=== PATIENT | female | born 1935 | race Caucasian/White ===

== ENCOUNTER → 2019-03-25 | Outpatient (CLI) | payer MEDICARE, BC ==
--- NOTE | 2019-03-25 16:27 | US ---
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 SIDE PERFORMED: Bilateral FINDINGS: 1) Color flow is present and patency is documented in the following vessels. No DVT or SVT is noted . EIV Common Femoral Vein Deep Femoral Vein Femoral Vein Popliteal Vein Greater Saph Vein Upper Small Saph Vein 2) There is mild venous reflux noted at the following venous levels: - Right EIV, CFV, DFV - Left EIV Anechoic c-shaped area at left pop fossa measuring 4.1 x 1.1 x 3.6cm At patients area of redness in left, no SVT is identified. IMPRESSION: 1. No evidence for DVT within the bilateral lower extremities imaged from the groin to the knees. 2. Mild venous reflux, right greater than left lower extremities, as outlined above. 3. [id number] sized Travis's cyst on the left.
== END | disposition home or self-care (01) ==
LOC: RADUSMAIN 14:55
PROVIDERS: ATTEND Internal Medicine Nephrology
DX: I87.2 Venous insufficiency (chronic) (peripheral) (principal); I12.9 Hypertensive chronic kidney disease with stage 1 through stage 4 chronic kidney disease, or unspecified chronic kidney disease
CPT/HCPCS: 93970

== ENCOUNTER 2019-04-01 14:47 | Emergency (ER) | payer MEDICARE, BC ==
[2019-04-01 14:58] VITALS: TEMP 98.2
[2019-04-01] MEDS ORDERED: SODIUM CHLORIDE 0.9% 500 ML 500 ML IV STA (15:15)
--- NOTE | 2019-04-01 15:56 | ED ---
General Adult HPI - General Chief complaint: Recheck/Abnormal Lab/Rx Stated complaint: High BP Time Seen by Provider: 04/01/19 15:03 Source: patient Mode of arrival: ambulatory Limitations: no limitations - History of Present Illness Initial comments: Patient is a 83-year-old female presenting to the emergency Department with complaints of elevated blood pressure 2 days. Patient states she was recently started on a second blood pressure medication, hydralazine, yesterday. Patient also takes carvedilol. Patient checks her blood pressure twice a day and states last few days has been running high. Patient states when she took it last night and was 216/?. Daughter is with patient now and states when she left last night it was 134. Patient denies fever, chills, headache, blurry vision, abdominal pain, nausea, vomiting. Patient has no other complaints at this time. Patient denies any recent illnesses. Patient denies chest pain, shortness of breath. Upon arrival to ER, BP is 157/74, rest of vital signs normal. - Related Data Home Medications Medication Instructions Recorded Confirmed Acetaminophen [Tylenol] 325 mg PO Q6H PRN 04/01/19 04/01/19 Carvedilol [Coreg] 6.25 mg PO BID 04/01/19 04/01/19 Torsemide [Demadex] 5 mg PO DAILY 04/01/19 04/01/19 amLODIPine [Norvasc] 5 mg PO DAILY 04/01/19 04/01/19 hydrALAZINE HCL [Apresoline] 25 mg PO TID 04/01/19 04/01/19 Allergies Allergy/AdvReac Type Severity Reaction Status Date / Time No Known Allergies Allergy Verified 04/01/19 14:58 Review of Systems ROS Statement: Those systems with pertinent positive or pertinent negative responses have been documented in the HPI. ROS Other: All systems not noted in ROS Statement are negative. Past Medical History Past Medical History: Hypertension Additional Past Medical History / Comment(s): kidney failure History of Any Multi-Drug Resistant Organisms: None Reported Past Surgical History: Joint Replacement Past Psychological History: No Psychological Hx Reported Smoking Status: Current every day smoker Past Alcohol Use History: Occasional Past Drug Use History: None Reported General Exam - General Exam Comments Initial Comments: GENERAL: Well-appearing, well-nourished and in no acute distress. HEAD: Atraumatic, normocephalic. EYES: Pupils equal round and reactive to light, extraocular movements intact, sclera anicteric, conjunctiva are normal. ENT: TMs normal, nares patent, oropharynx clear without exudates. Moist mucous membranes. NECK: Normal range of motion, supple without lymphadenopathy or JVD. LUNGS: Breath sounds clear to auscultation bilaterally and equal. No wheezes rales or rhonchi. HEART: Regular rate and rhythm without murmurs, rubs or gallops. ABDOMEN: Soft, nontender, normoactive bowel sounds. No guarding, no rebound. No masses appreciated. : Deferred EXTREMITIES: Normal range of motion, no pitting or edema. No clubbing or cyanosis. NEUROLOGICAL: Cranial nerves II through XII grossly intact. Normal speech, normal gait. PSYCH: Normal mood, normal affect. SKIN: Warm, Dry, normal turgor, no rashes or lesions noted. Limitations: no limitations Course Vital Signs 04/01/19 04/01/19 04/01/19 14:54 15:05 15:30 Temperature 98.2 F Pulse Rate 79 80 67 Respiratory 18 15 10 L Rate Blood Pressure 157/74 175/71 O2 Sat by Pulse 100 Oximetry 04/01/19 04/01/19 04/01/19 16:00 16:30 17:00 Temperature Pulse Rate 69 68 69 Respiratory 15 17 9 L Rate Blood Pressure 187/83 182/74 185/78 O2 Sat by Pulse Oximetry 04/01/19 04/01/19 04/01/19 17:30 18:00 18:18 Temperature Pulse Rate 65 65 Respiratory 10 L 10 L Rate Blood Pressure 180/77 200/88 200/88 O2 Sat by Pulse Oximetry 04/01/19 04/01/19 04/01/19 18:30 19:00 19:21 Temperature 98.2 F Pulse Rate 68 71 71 Respiratory 10 L 12 12 Rate Blood Pressure 179/78 181/79 181/79 O2 Sat by Pulse 100 Oximetry EKG Findings - EKG Comments: EKG Findings:: Ventricular rate 72, TN interval 190, QTC 473. Sinus rhythm with premature atrial complexes. Left bundle branch block. No acute ST segment changes. No prior EKGs to compare. Medical Decision Making - Medical Decision Making Patient is an 83-year-old female presenting with increasing BP for the last couple days. Patient has past medical history of stage IV kidney disease. Upon arrival to ER, BP is 157/74 in triage area however when rechecked when patient was roomed, BP was 175/71. Patient denies fever, chills, headache, blurry vision, chest pain, shortness of breath, cough, nausea, vomiting. Patient has no further complaints. Patient's exam is unremarkable today. CBC is normal, CMP reveals BUN of 48, creatinine 2.24. GFR is 19. UA is within normal limits. EKG shows no acute changes. Patient was given a half a liter of fluids and labetalol with minimal change in blood pressure. Patient seemed very anxious during the stay in very concerned about her BP. Patient checks it twice a day. Patient has no prior labs to compare kidney function. Case was discussed with Dr. Peoples. Dr. Arvizu was contacted and suggested patient come in for observation. This was discussed with patient and patient is refusing to be admitted. Patient will follow up with her doctor tomorrow morning. The risks of leaving AMA were discussed with the patient and she continues to express her concerns for wanting to leave. AMA form was signed by the patient. Return parameters were discussed with the patient she verbalized understanding. Patient will continue taking her BP medications as prescribed. - Lab Data Result diagrams: 04/01/19 15:46 04/01/19 15:46 Lab Results 04/01/19 04/01/19 04/01/19 Range/Units 15:46 15:46 15:46 WBC 5.1 (3.8-10.6) k/uL RBC 3.99 (3.80-5.40) m/uL Hgb 11.8 (11.4-16.0) gm/dL Hct 35.7 (34.0-46.0) % MCV 89.5 (80.0-100.0) fL MCH 29.7 (25.0-35.0) pg MCHC 33.2 (31.0-37.0) g/dL RDW 13.2 (11.5-15.5) % Plt Count 290 (150-450) k/uL Neutrophils % 62 % Lymphocytes % 20 % Monocytes % 9 % Eosinophils % 5 % Basophils % 2 % Neutrophils # 3.1 (1.3-7.7) k/uL Lymphocytes # 1.0 (1.0-4.8) k/uL Monocytes # 0.5 (0-1.0) k/uL Eosinophils # 0.2 (0-0.7) k/uL Basophils # 0.1 (0-0.2) k/uL Sodium 137 (137-145) mmol/L Potassium 3.8 (3.5-5.1) mmol/L Chloride 101 (98-107) mmol/L Carbon Dioxide 25 (22-30) mmol/L Anion Gap 11 mmol/L BUN 48 H (7-17) mg/dL Creatinine 2.24 H (0.52-1.04) mg/dL Est GFR (CKD-EPI)AfAm 22 (>60 ml/min/1.73 sqM) Est GFR (CKD-EPI)NonAf 19 (>60 ml/min/1.73 sqM) Glucose 153 H (74-99) mg/dL Calcium 9.7 (8.4-10.2) mg/dL Total Bilirubin 0.4 (0.2-1.3) mg/dL AST 20 (14-36) U/L ALT 10 (9-52) U/L Alkaline Phosphatase 68 (38-126) U/L Total Protein 7.0 (6.3-8.2) g/dL Albumin 4.4 (3.5-5.0) g/dL Urine Color Light Yellow Urine Appearance Clear (Clear) Urine pH 5.5 (5.0-8.0) Ur Specific [place] 1.010 (1.001-1.035) Urine Protein Trace H (Negative) Urine Glucose (UA) Negative (Negative) Urine Ketones Negative (Negative) Urine Blood Negative (Negative) Urine Nitrite Negative (Negative) Urine Bilirubin Negative (Negative) Urine Urobilinogen <2.0 (<2.0) mg/dL Ur Leukocyte Esterase Moderate H (Negative) Urine RBC 1 (0-5) /hpf Urine WBC 8 H (0-5) /hpf Ur Squamous Epith Cells <1 (0-4) /hpf Urine Mucus Rare H (None) /hpf Disposition Clinical Impression: Hypertensive urgency, Kidney disease, chronic, stage IV (GFR 15-29 ml/min) Disposition: Left Against Medical Advice Condition: Stable Instructions (If sedation given, give patient instructions): Hypertension (ED) Additional Instructions: Please return to the Emergency Department if symptoms worsen or any other concerns. Follow-up with PCP as discussed tomorrow. Is patient prescribed a controlled substance at d/c from ED?: No Referrals: Teo Madrid MD [Primary Care Provider] - 1-2 days
[2019-04-01 16:05] LABS: Appearance,Urine Clear (Clear); Bilirubin,Urine Negative (Negative); Blood,Urine Negative (Negative); Color,Urine Light Yellow; Glucose,Urine (UA) Negative (Negative); Ketones,Urine Negative (Negative); Leukocyte Esterase,Urine Moderate (Negative); Mucus,Urine Rare /hpf; Nitrite,Urine Negative (Negative); PH, Urine 5.5 (5.0-8.0); Protein,Urine Trace (Negative); RBC,Urine 1 /hpf (0-5); Squamous Epithelial Cell,Urine <1 /hpf (0-4); Urobilinogen,Urine <2.0 mg/dL (<2.0)
[2019-04-01 16:09] LABS: Basophils # (A) 0.1 k/uL (0-0.2); Basophils % (A) 2 %; Eosinophils # (A) 0.2 k/uL (0-0.7); Eosinophils % (A) 5 %; HCT 35.7 % (34.0-46.0); HGB 11.8 gm/dL (11.4-16.0); Lymphocytes % (A) 20 %; MCH 29.7 pg (25.0-35.0); MCHC 33.2 g/dL (31.0-37.0); MCV 89.5 fL (80.0-100.0); Mean Platelet Volume 6.7; Monocytes # (A) 0.5 k/uL (0-1.0); Monocytes % (A) 9 %; Neutrophils # (A) 3.1 k/uL (1.3-7.7); Neutrophils % (A) 62 %; Platelet Count 290 k/uL (150-450); RBC 3.99 m/uL (3.80-5.40); RDW 13.2 % (11.5-15.5); WBC 5.1 k/uL (3.8-10.6)
[2019-04-01 16:10] LABS: Albumin 4.4 g/dL (3.5-5.0); Calcium 9.7 mg/dL (8.4-10.2); Potassium 3.8 mmol/L (3.5-5.1); Total Bilirubin 0.4 mg/dL (0.2-1.3)
[2019-04-01] MEDS ORDERED: LABETALOL 5 MG/ML VIAL MDV IVP STA (16:44)
[2019-04-01 19:02] VITALS: BP 181/79; PULSE 71; RESP 12
== END 2019-04-01 19:21 | disposition left against medical advice (07) ==
LOC: EC 14:47
DX: I16.0 Hypertensive urgency (principal); I12.9 Hypertensive chronic kidney disease with stage 1 through stage 4 chronic kidney disease, or unspecified chronic kidney disease; N18.4 Chronic kidney disease, stage 4 (severe); F17.200 Nicotine dependence, unspecified, uncomplicated; Z96.60 Presence of unspecified orthopedic joint implant; Z79.899 Other long term (current) drug therapy
CPT/HCPCS: 36415; 80053; 81001; 85025; 93005; 96361; 96374; 99283

== ENCOUNTER → 2019-06-12 | Outpatient (CLI) | payer MEDICARE, BC ==
--- NOTE | 2019-06-12 16:21 | ECHOF ---
Referral Reason:I12.9 Hypertensive chronic kidney disease with.... MEASUREMENTS -------- HEIGHT: 157.5 cm WEIGHT: 55.8 kg BP: RVIDd: 2.6 cm (< 3.3) IVSd: 1.3 cm (0.6 - 1.1) LVIDd: 4.1 cm (3.9 - 5.3) LVPWd: 1.3 cm (0.6 - 1.1) IVSs: 1.3 cm LVIDs: 3.7 cm LVPWs: 1.6 cm LA Diam: 4.0 cm (2.7 - 3.8) LAESV Index (A-L): 27.29 ml/m Ao Diam: 2.7 cm (2.0 - 3.7) AV Cusp: 1.6 cm (1.5 - 2.6) LA Diam: 3.2 cm (2.7 - 3.8) MV EXCURSION: 14.382 mm (> 18.000) MV EF SLOPE: 62 mm/s (70 - 150) EPSS: 0.3 cm MV E Juma: 0.49 m/s MV DecT: 251 ms MV A Juma: 0.72 m/s MV E/A Ratio: 0.68 RAP: 5.00 mmHg RVSP: 31.07 mmHg FINDINGS -------- Sinus rhythm. This was a technically adequate study. The left ventricular size is normal. There is mild concentric left ventricular hypertrophy. Overa ll left ventricular systolic function is normal with, an EF between 55 - 60 %. The right ventricle is normal in size. The left atrial size is normal. The right atrial size is normal. There is mild aortic valve sclerosis. There is no evidence of aortic regurgitation. Mild mitral annular calcification present. Mild mitral regurgitation is present. Mild tricuspid regurgitation present. Right ventricular systolic pressure is normal at < 35 mmHg. There is no evidence of pulmonary hypertension. There is no pulmonic regurgitation present. The aortic root size is normal. There is a trivial pericardial effusion present. CONCLUSIONS -------- 1. Sinus rhythm. 2. This was a technically adequate study. 3. The left ventricular size is normal. 4. There is mild concentric left ventricular hypertrophy. 5. The right ventricle is normal in size. 6. The left atrial size is normal. 7. The right atrial size is normal. 8. There is mild aortic valve sclerosis. 9. Mild mitral annular calcification present. 10. Mild mitral regurgitation is present. 11. Mild tricuspid regurgitation present. 12. Right ventricular systolic pressure is normal at < 35 mmHg. 13. There is no evidence of pulmonary hypertension. 14. There is no pulmonic regurgitation present. 15. The aortic root size is normal. 16. There is a trivial pericardial effusion present. HOSPICE VOLUNTEER: Sharee Gallegos RDCS
== END | disposition home or self-care (01) ==
LOC: RADECHMAIN 13:14
PROVIDERS: ATTEND Internal Medicine Nephrology
DX: I31.3 Pericardial effusion (noninflammatory) (principal); I08.3 Combined rheumatic disorders of mitral, aortic and tricuspid valves; I12.9 Hypertensive chronic kidney disease with stage 1 through stage 4 chronic kidney disease, or unspecified chronic kidney disease; N18.9 Chronic kidney disease, unspecified
CPT/HCPCS: 93306

== ENCOUNTER 2021-09-21 17:43 | Emergency (ER) | payer MEDICARE, BC ==
[2021-09-21 18:03] VITALS: RESP 18
[2021-09-21 20:44] LABS: Appearance,Urine Clear (Clear); Bilirubin,Urine Negative (Negative); Blood,Urine Negative (Negative); Color,Urine Light Yellow; Glucose,Urine (UA) Negative (Negative); Ketones,Urine Negative (Negative); Leukocyte Esterase,Urine Negative (Negative); Nitrite,Urine Negative (Negative); PH, Urine 5.5 (5.0-8.0); Protein,Urine Negative (Negative); Specific Gravity,Urine 1.007 (1.001-1.035); Urobilinogen,Urine <2.0 mg/dL (<2.0)
[2021-09-21 20:45] LABS: Basophils % (A) 1 %; Eosinophils # (A) 0.3 k/uL (0-0.7); Eosinophils % (A) 6 %; HCT 35.7 % (34.0-46.0); HGB 11.4 gm/dL (11.4-16.0); Lymphocytes # (A) 1.4 k/uL (1.0-4.8); Lymphocytes % (A) 27 %; MCH 28.7 pg (25.0-35.0); MCHC 31.9 g/dL (31.0-37.0); Mean Platelet Volume 7.8; Monocytes # (A) 0.5 k/uL (0-1.0); Monocytes % (A) 9 %; Neutrophils # (A) 2.8 k/uL (1.3-7.7); Neutrophils % (A) 55 %; Platelet Count 229 k/uL (150-450); RBC 3.97 m/uL (3.80-5.40); RDW 13.1 % (11.5-15.5); WBC 5.1 k/uL (3.8-10.6)
[2021-09-21 20:57] LABS: Albumin 4.3 g/dL (3.5-5.0); Potassium 4.2 mmol/L (3.5-5.1); Total Bilirubin 0.6 mg/dL (0.2-1.3); Total Protein 7.3 g/dL (6.3-8.2)
--- NOTE | 2021-09-21 21:07 | XR ---
EXAMINATION TYPE: XR chest 2V DATE OF EXAM: 09/21/2021 8:53 PM COMPARISON:None TECHNIQUE: XR chest 2V Frontal and lateral views of the chest. CLINICAL INDICATION:Female, 85 years old with history of HTN; FINDINGS: Lungs/Pleura: There is flattening of the diaphragm with increased lucency of the lungs. No evidence o f pneumothorax, pleural effusion or focal consolidation. Left upper lobe nodular density measuring 13 mm. Pulmonary vascularity: Unremarkable. Heart/mediastinum: Cardiomediastinal silhouette is unremarkable. The aorta appears tortuous, a findi ng usually associated with either atherosclerosis or systemic hypertension. Musculoskeletal: No acute osseous pathology. End-stage degeneration changes of the right shoulder. IMPRESSION: 1. No evidence of focal consolidation, pneumothorax or pleural effusion. 2. COPD changes. 3. Left upper lobe nodular density which could be further evaluated with cross-sectional imaging.
--- NOTE | 2021-09-21 21:08 | ED ---
General Adult HPI - General Chief complaint: Recheck/Abnormal Lab/Rx Stated complaint: Hypertensive Time Seen by Provider: 09/21/21 19:21 Source: patient, RN notes reviewed Mode of arrival: wheelchair Limitations: no limitations - History of Present Illness Initial comments: 85-year-old female with past medical history stage IV renal disease presents to the emergency department for evaluation of hypertension. Patient states her blood pressure has been elevated for the past 2 days. Reports that she took an extra half dose of her metoprolol yesterday with no improvement. States she has been taking her medications as prescribed. No known sick exposures. No new medication changes. Denies any associated symptoms including fever, chills, headache, blurry vision, dizziness, chest pain, difficulty breathing, shortness of breath, palpitations, abdominal pain, nausea, vomiting, diarrhea, or dysuria. - Related Data Home Medications Medication Instructions Recorded Confirmed Torsemide [Demadex] 5 mg PO BID 04/01/19 09/21/21 Carvedilol [Coreg] 25 mg PO BID 05/20/19 09/21/21 Previous Rx's Medication Instructions Recorded hydrALAZINE HCL 25 mg PO BID 30 Days #60 tablet 09/22/21 Allergies Allergy/AdvReac Type Severity Reaction Status Date / Time No Known Allergies Allergy Verified 09/21/21 20:33 Review of Systems ROS Statement: Those systems with pertinent positive or pertinent negative responses have been documented in the HPI. ROS Other: All systems not noted in ROS Statement are negative. Past Medical History Past Medical History: Hypertension Additional Past Medical History / Comment(s): kidney failure History of Any Multi-Drug Resistant Organisms: None Reported Past Surgical History: Joint Replacement Past Psychological History: No Psychological Hx Reported Smoking Status: Never smoker Past Alcohol Use History: Occasional Past Drug Use History: None Reported General Exam Limitations: no limitations (Well-developed, well-nourished female in no acute distress. Initial temperature 97.8, pulse 64, respirations 18, blood pressure 193/94, pulse ox 100% on room air.) General appearance: alert, in no apparent distress Eye exam: Present: normal appearance, PERRL, EOMI. Absent: scleral icterus, conjunctival injection, periorbital swelling Neck exam: Present: normal inspection, full ROM. Absent: tenderness, meningism us, lymphadenopathy Respiratory exam: Present: normal lung sounds bilaterally. Absent: respiratory distress, wheezes, rales, rhonchi, stridor, chest wall tenderness Cardiovascular Exam: Present: regular rate, normal rhythm, normal heart sounds. Absent: systolic murmur, diastolic murmur, rubs, gallop, clicks GI/Abdominal exam: Present: soft, normal bowel sounds. Absent: distended, tenderness, guarding, rebound, rigid Extremities exam: Present: normal capillary refill, other (Bilateral dependent nonpitting lower extremity edema- normal for patient.) Neurological exam: Present: alert, oriented X3, CN II-XII intact Psychiatric exam: Present: normal affect, normal mood Skin exam: Present: warm, dry, intact, normal color. Absent: rash Course Vital Signs 09/21/21 09/21/21 09/21/21 18:00 20:56 22:03 Temperature 97.8 F Pulse Rate 64 68 Respiratory 18 Rate Blood Pressure 193/94 202/99 206/102 O2 Sat by Pulse 100 Oximetry 09/21/21 09/21/21 09/22/21 23:00 23:48 00:00 Temperature Pulse Rate 66 68 64 Respiratory 18 18 18 Rate Blood Pressure 215/105 188/91 200/102 O2 Sat by Pulse Oximetry 09/22/21 09/22/21 09/22/21 00:21 01:00 02:00 Temperature Pulse Rate 65 63 59 L Respiratory 18 18 18 Rate Blood Pressure 161/82 100/60 82/56 O2 Sat by Pulse Oximetry 09/22/21 09/22/21 09/22/21 02:12 02:17 03:16 Temperature 97.3 F L Pulse Rate 56 L 56 L 65 Respiratory 18 18 18 Rate Blood Pressure 162/78 148/79 171/83 O2 Sat by Pulse Oximetry - Reevaluation(s) Reevaluation #1: 09/21/21 21:[address] Phipps regarding patient's hypertension. She suggests adding hydralazine 25 mg twice a day with the option of a PRN dose. Clonidine will be administered in the emergency department. Patient will be monitored. And then discharged home to follow up in the office. 09/21/21 23:33 Upon reassessment, patient received her first dose of clonidine with the current blood pressure of 181/97. I will repeat this dose and continue to monitor with a goal pressure of SBP less than 170 and DBP less than 90. 09/22/21 00:48 Blood pressure 103/54. Patient denies dizziness, lightheadedness, or headache. She will be discharged home with daughter and instructed to follow up tomorrow. She is prescribed hydralazine and instructed to continue monitoring her blood pressure closely. 09/22/21 02:30 Preparation for the procedure, patient experienced an episode of orthostatic hypotension likely due to the prolonged rest states and administration antihypertensives. Patient was reassessed and her blood pressure quickly returned to baseline. She was asymptomatic. She will be discharged after 2 consecutive satisfactory blood pressure measurements . Medical Decision Making - Medical Decision Making 85-year-old female with a past medical history of stage IV renal disease presents to the emergency department for evaluation of hypertension. Upon exam, patient is well-appearing and in no acute distress. She is asymptomatic. She denies chest pain or difficulty breathing. States she has been taking her medications as prescribed. Laboratory studies were reviewed and are baseline for patient. EKG unchanged from previous. I did discuss her care with Dr. Phipps, her director of accounting. Patient was given clonidine while present in the emergency department. She is prescribed hydralazine and instructed to begin taking that twice daily, encouraged to call her nephrology [facility] today to schedule a recheck. Return parameters were discussed in detail. Patient and daughter verbalized understanding and agreement with this plan. Attending: Mango. - Lab Data Result diagrams: 09/21/21 19:00 09/21/21 19:00 Lab Results 09/21/21 09/21/21 09/21/21 Range/Units 19:00 19:00 19:00 WBC 5.1 (3.8-10.6) k/uL RBC 3.97 (3.80-5.40) m/uL Hgb 11.4 (11.4-16.0) gm/dL Hct 35.7 (34.0-46.0) % MCV 90.0 (80.0-100.0) fL MCH 28.7 (25.0-35.0) pg MCHC 31.9 (31.0-37.0) g/dL RDW 13.1 (11.5-15.5) % Plt Count 229 (150-450) k/uL MPV 7.8 Neutrophils % 55 % Lymphocytes % 27 % Monocytes % 9 % Eosinophils % 6 % Basophils % 1 % Neutrophils # 2.8 (1.3-7.7) k/uL Lymphocytes # 1.4 (1.0-4.8) k/uL Monocytes # 0.5 (0-1.0) k/uL Eosinophils # 0.3 (0-0.7) k/uL Basophils # 0.0 (0-0.2) k/uL Sodium 135 L (137-145) mmol/L Potassium 4.2 (3.5-5.1) mmol/L Chloride 101 (98-107) mmol/L Carbon Dioxide 23 (22-30) mmol/L Anion Gap 11 mmol/L BUN 47 H (7-17) mg/dL Creatinine 2.26 H (0.52-1.04) mg/dL Est GFR (CKD-EPI)AfAm 22 (>60 ml/min/1.73 sqM) Est GFR (CKD-EPI)NonAf 19 (>60 ml/min/1.73 sqM) Glucose 96 (74-99) mg/dL Calcium 9.0 (8.4-10.2) mg/dL Total Bilirubin 0.6 (0.2-1.3) mg/dL AST 20 (14-36) U/L ALT 10 (4-34) U/L Alkaline Phosphatase 64 (38-126) U/L Total Protein 7.3 (6.3-8.2) g/dL Albumin 4.3 (3.5-5.0) g/dL Urine Color Light Yellow Urine Appearance Clear (Clear) Urine pH 5.5 (5.0-8.0) Ur Specific [place] 1.007 (1.001-1.035) Urine Protein Negative (Negative) Urine Glucose (UA) Negative (Negative) Urine Ketones Negative (Negative) Urine Blood Negative (Negative) Urine Nitrite Negative (Negative) Urine Bilirubin Negative (Negative) Urine Urobilinogen <2.0 (<2.0) mg/dL Ur Leukocyte Esterase Negative (Negative) - EKG Data EKG shows normal: sinus rhythm Rate: normal EKG Comments: EKG was obtained at 1855 showing sinus rhythm with intraventricular conduction delay anteroseptal myocardial infarction of indeterminate age. Ventricular rate 62, [place] interval 200, QRS duration 132, QT/QTc 446/452. Interpretation normal ECG. - Radiology Data Radiology results: report reviewed, image reviewed Two-view chest x-ray was obtained. Report was reviewed in its entirety. Impression per Dr. Melgar is no evidence of focal consolidation, pneumothorax, or pleural effusion. COPD changes. Left upper lobe nodular density which could be further evaluated. Disposition Clinical Impression: Hypertension Disposition: HOME SELF-CARE Condition: Stable Instructions (If sedation given, give patient instructions): Hypertension (ED) Additional Instructions: Continue monitoring her blood pressure at home. Log these values and take them with you to your follow-up appointment. Begin taking Hydralazine 25mg twice daily in additional to your other medications. This was sent electronically to your pharmacy in [place]. May repeat Hydralazine for a third dose if BP remains elevated. Please follow up with Ramandeep for a recheck. Call the office in the morning. Return to the emergency department with any new, worsening, or concerning symptoms. Prescriptions: hydrALAZINE HCL 25 mg PO BID 30 Days #60 tablet Is patient prescribed a controlled substance at d/c from ED?: No Referrals: Teo Madrid MD [Primary Care Provider] - 1-2 days Time of Disposition: 01:00
[2021-09-21] MEDS ORDERED: LABETALOL 5 MG/ML VIAL MDV IVP STA (21:14)
[2021-09-21] MEDS ORDERED: cloNIDine HCL 0.1 MG TAB PO STA ×2 (22:10→23:34)
[2021-09-22 03:17] VITALS: BP 171/83; PULSE 65; TEMP 97.3
== END 2021-09-22 03:17 | disposition home or self-care (01) ==
LOC: EC 17:43
DX: I10 Essential (primary) hypertension (principal)
CPT/HCPCS: 36415; 71046; 80053; 81003; 85025; 96374; 99284

== ENCOUNTER → 2022-09-30 | Outpatient (CLI) | payer MEDICARE, BC ==
--- NOTE | 2022-10-03 07:45 | US ---
EXAMINATION TYPE: US arterial LE single level DATE OF EXAM: 09/30/2022 1:18 PM CLINICAL HISTORY: M25.572 LT ANKLE PAIN. left leg discoloration and left ankle pain Doppler Waveforms: Right: Biphasic Left: Biphasic Right Brachial Pressure: 198 Left Brachial Pressure: 195 Ankle-Brachial Indices: Right: 0.86 Left: 0.69 Toe Brachial Indices: Right: 0.43 Left: 0.57 Some limitations due to poor tolerance to cuff pressure at the ankle. 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 Further workup and follow-up advised.
== END | disposition home or self-care (01) ==
LOC: RADUSWWP 12:37
PROVIDERS: ATTEND Orthopaedic Surgery Foot and Ankle Surgery
DX: M25.572 Pain in left ankle and joints of left foot (principal); M79.604 Pain in right leg; M79.605 Pain in left leg; R09.89 Other specified symptoms and signs involving the circulatory and respiratory systems; I87.2 Venous insufficiency (chronic) (peripheral)
CPT/HCPCS: 93922

== ENCOUNTER 2023-03-02 20:03 | Emergency (ER) | payer MEDICARE, BC ==
[2023-03-02 20:42] VITALS: BP 174/82; PULSE 74; RESP 19
[2023-03-02] MEDS ORDERED: SODIUM CHLORIDE 0.9% 500 ML 500 ML IV ONE (20:49)
[2023-03-02 21:15] LABS: Basophils % (A) 0 %; Eosinophils # (A) 0.2 k/uL (0-0.7); Eosinophils % (A) 2 %; HCT 35.1 % (34.0-46.0); HGB 11.5 gm/dL (11.4-16.0); Lymphocytes # (A) 1.6 k/uL (1.0-4.8); Lymphocytes % (A) 26 %; MCH 28.9 pg (25.0-35.0); MCHC 32.9 g/dL (31.0-37.0); MCV 87.9 fL (80.0-100.0); Mean Platelet Volume 8.5; Monocytes # (A) 0.5 k/uL (0-1.0); Monocytes % (A) 7 %; Neutrophils # (A) 3.8 k/uL (1.3-7.7); Neutrophils % (A) 62 %; Platelet Count 256 k/uL (150-450); RBC 3.99 m/uL (3.80-5.40); RDW 13.7 % (11.5-15.5); WBC 6.1 k/uL (3.8-10.6)
[2023-03-02 21:26] LABS: ALT 14 U/L (4-34); AST 25 U/L (14-36); African American GFR (CKD) 21 (>60 ml/min/1.73 sqM); Albumin 4.5 g/dL (3.5-5.0); Alkaline Phosphatase 66 U/L (38-126); Anion Gap 14 mmol/L; Blood Urea Nitrogen 53 mg/dL (7-17); Carbon Dioxide 18 mmol/L (22-30); Chloride 104 mmol/L (98-107); Glucose 111 mg/dL (74-99); Non-African American GFR(CKD) 18 (>60 ml/min/1.73 sqM); Potassium 4.7 mmol/L (3.5-5.1); Sodium 136 mmol/L (137-145); Total Bilirubin 0.6 mg/dL (0.2-1.3); Total Protein 7.3 g/dL (6.3-8.2)
--- NOTE | 2023-03-02 21:26 | XR ---
EXAMINATION TYPE: XR chest 2V DATE OF EXAM: 03/02/2023 9:21 PM COMPARISON: Chest radiographs from 09/21/2021 TECHNIQUE: XR chest 2V Frontal and lateral views of the chest. CLINICAL INDICATION:Female, 87 years old with history of SOB, suspected allergic rxn; FINDINGS: Lungs/Pleura: There is flattening of the diaphragm with increased lucency of the lungs. No evidence o f pneumothorax, pleural effusion or focal consolidation. Chronic senescent parenchymal change. Left u pper lobe nodular density is less prominent exam and favored represent superimposed clavicle. Pulmonary vascularity: Unremarkable. Heart/mediastinum: Cardiomediastinal silhouette is unremarkable. Atherosclerotic calcifications are seen in the aorta. Musculoskeletal: No acute osseous pathology. Bilateral shoulder arthropathy. Mild multilevel degenera tive disc disease. IMPRESSION: 1. No acute cardiopulmonary disease process. 2. COPD changes.
--- NOTE | 2023-03-02 23:04 | ED ---
General Adult HPI - General Chief complaint: Allergic Reaction Stated complaint: Allergic Reaction Source: patient Mode of arrival: EMS Limitations: no limitations - History of Present Illness Initial comments: 87-year-old female presenting with suspected ALLERGIC reaction. Patient states that she was in her home when she states that she suddenly had a difficult time breathing. Per EMS when they walked in the Small a strong, equal sent. Patient reports that around her complex pesticides called "Round-Up" were sprayed today. Patient was given Benadryl and breathing treatment by EMS and reported significant improvement. She is still having some periorbital swelling. States that her breathing is much better at this time. No rash or itching. No nausea, vomiting, abdominal pain. No chest pain. No swelling of the lips or tongue. She denies any other new foods, medications, or topical products. - Related Data Home Medications Medication Instructions Recorded Confirmed Torsemide [Demadex] 5 mg PO BID 04/01/19 09/21/21 carvediloL [Coreg] 25 mg PO BID 05/20/19 09/21/21 Previous Rx's Medication Instructions Recorded hydrALAZINE HCL 25 mg PO BID 30 Days #60 tablet 09/22/21 Allergies Allergy/AdvReac Type Severity Reaction Status Date / Time No Known Allergies Allergy Verified 09/21/21 20:33 Review of Systems ROS Statement: Those systems with pertinent positive or pertinent negative responses have been documented in the HPI. ROS Other: All systems not noted in ROS Statement are negative. Past Medical History Past Medical History: Hypertension Additional Past Medical History / Comment(s): kidney failure History of Any Multi-Drug Resistant Organisms: None Reported Past Surgical History: Joint Replacement Past Psychological History: No Psychological Hx Reported Smoking Status: Never smoker Past Alcohol Use History: Occasional Past Drug Use History: None Reported General Exam Limitations: no limitations General appearance: alert, in no apparent distress Head exam: Present: atraumatic, normocephalic, normal inspection Eye exam: Present: normal appearance, PERRL, EOMI, periorbital swelling. Absent: scleral icterus, conjunctival injection, periorbital tenderness ENT exam: Present: normal oropharynx, mucous membranes moist Neck exam: Present: normal inspection, full ROM Respiratory exam: Present: normal lung sounds bilaterally. Absent: respiratory distress, wheezes, rales, rhonchi, stridor Cardiovascular Exam: Present: regular rate, normal rhythm, normal heart sounds. Absent: systolic murmur, diastolic murmur, rubs, gallop, clicks Neurological exam: Present: alert, oriented X3, CN II-XII intact Psychiatric exam: Present: normal affect, normal mood Skin exam: Present: warm, dry, intact, normal color. Absent: rash Course Vital Signs 03/02/23 20:26 Pulse Rate 74 Respiratory 19 Rate Blood Pressure 174/82 O2 Sat by Pulse 96 Oximetry EKG Findings - EKG Comments: EKG Findings:: Sinus rhythm ventricular rate 72. TN interval 209. QRS is 134. QTC 439. QTC 463. No significant change from previous EKGs. Medical Decision Making - Medical Decision Making Was pt. sent in by a medical professional or institution (, PA, NUCLEAR REACTOR TECHNICIAN, urgent care, hospital, or fci...) When possible be specific @ -No Did you speak to anyone other than the patient for history (EMS, parent, family, police, friend...)? What history was obtained from this source @ -EMS Did you review nursing and triage notes (agree or disagree)? Why? @ -I reviewed and agree with nursing and triage notes Were old charts reviewed (outside hosp., previous admission, EMS record, old EKG, old radiological studies, urgent care reports/EKG's, fci records)? Report findings @ -No old charts were reviewed Differential Diagnosis (chest pain, altered mental status, abdominal pain women, abdominal pain men, vaginal bleeding, weakness, fever, dyspnea, syncope, headache, dizziness, GI bleed, back pain, seizure, CVA, palpatations, mental he alth, musculoskeletal)? @ -MDM Differential Dyspnea: ALLERGIC reaction, Coronary syndrome, arrhythmia, tamponade, asthma, COPD, pulmonary embolism, pneumonia, pneumothorax, pulmonary effusion, anaphylaxis, diabetic ketoacidosis, flailed chest, pulmonary contusion, diaphragmatic rupture, anemia, neuromuscular this is not meant to be an all-inclusive list. EKG interpreted by me (3pts min.). @ -As above X-rays interpreted by me (1pt min.). @ -No acute cardiopulmonary process CT interpreted by me (1pt min.). @ -None done U/S interpreted by me (1pt. min.). @ -None done What testing was considered but not performed or refused? (CT, X-rays, U/S, labs)? Why? @ -None What meds were considered but not given or refused? Why? @ -None Did you discuss the management of the patient with other professionals (professionals i.e. , SERA, NUCLEAR REACTOR TECHNICIAN, lab, RT, psych nurse, social economist, field counsel, teacher, combat information center officer, pillowcase turner)? Give summary @ -No Was smoking cessation discussed for >3mins.? @ -No Was critical care preformed (if so, how long)? @ -No Were there social determinants of health that impacted care today? How? (Homelessness, low income, unemployed, alcoholism, drug addiction, transportation, low edu. Level, literacy, decrease access to med. care, intermediate, rehab)? @ -No Was there de-escalation of care discussed even if they declined (Discuss DNR or withdrawal of care, Hospice)? DNR status @ -No What co-morbidities impacted this encounter? (DM, HTN, Smoking, COPD, CAD, Cancer, CVA, ARF, Chemo, Hep., AIDS, mental health diagnosis, sleep apnea, morbid obesity)? @ -None Was patient admitted / discharged? Hospital course, mention meds given and route, prescriptions, significant lab abnormalities, going to OR and other pertinent info. @ -87-year-old female presenting with chief complaint of suspected ALLERGIC reaction. Patient had sudden onset of dyspnea and periorbital swelling at home. EMS came to her home and states that they smelled strong chemical odor. Patient was given Benadryl and breathing treatment by EMS, she reports significant improvement in her symptoms after these medications. Patient states that her complex did spray pesticides today which may have caused this reaction. During my assessment the patient is resting comfortably showing no signs of respiratory distress. She has a mild amount of periorbital swelling. Heart and lungs are clear to auscultation. No angioedema. No rash. Lab work shows no leukocytosis or anemia. Carbon monoxide is 2.5. BUN 53 and creatinine 2.34, consistent with the patient's history of chronic kidney disease. Chest x-ray is negative. On reassessment patient is resting comfortably states that her symptoms have completely results. She is requesting discharge. She'll be discharged home with her daughter who will be staying with her tonight. Follow- up with PCP. Report back to ER with any new or worsening symptoms. Discussed return parameters and answered all questions. Patient conveyed verbal understanding and agreed to the plan. I discussed this case in detail with my attending Dr. Bruce Undiagnosed new problem with uncertain prognosis? @ -No Drug Therapy requiring intensive monitoring for toxicity (Heparin, Nitro, Insulin, Cardizem)? @ -No Were any procedures done? @ -No Diagnosis/symptom? @ -ALLERGIC reaction Acute, or Chronic, or Acute on Chronic? @ -acute Uncomplicated (without systemic symptoms) or Complicated (systemic symptoms)? @ -Uncomplicated Side effects of treatment? @ -No Exacerbation, Progression, or Severe Exacerbation? @ -No Poses a threat to life or bodily function? How? (Chest pain, USA, CT, pneumonia, PE, COPD, DKA, ARF, appy, cholecystitis, CVA, Diverticulitis, Homicidal, Suicidal, threat to staff... and all critical care pts) @ -Low likelihood - Lab Data Result diagrams: 03/02/23 20:49 03/02/23 20:49 Lab Results 03/02/23 03/02/23 03/02/23 Range/Units 20:49 20:49 22:45 WBC 6.1 (3.8-10.6) k/uL RBC 3.99 (3.80-5.40) m/uL Hgb 11.5 (11.4-16.0) gm/dL Hct 35.1 (34.0-46.0) % MCV 87.9 (80.0-100.0) fL MCH 28.9 (25.0-35.0) pg MCHC 32.9 (31.0-37.0) g/dL RDW 13.7 (11.5-15.5) % Plt Count 256 (150-450) k/uL MPV 8.5 Neutrophils % 62 % Lymphocytes % 26 % Monocytes % 7 % Eosinophils % 2 % Basophils % 0 % Neutrophils # 3.8 (1.3-7.7) k/uL Lymphocytes # 1.6 (1.0-4.8) k/uL Monocytes # 0.5 (0-1.0) k/uL Eosinophils # 0.2 (0-0.7) k/uL Basophils # 0.0 (0-0.2) k/uL Carbon Monoxide, Quant 2.5 (<10.0) % Sodium 136 L (137-145) mmol/L Potassium 4.7 (3.5-5.1) mmol/L Chloride 104 (98-107) mmol/L Carbon Dioxide 18 L (22-30) mmol/L Anion Gap 14 mmol/L BUN 53 H (7-17) mg/dL Creatinine 2.34 H (0.52-1.04) mg/dL Est GFR (CKD-EPI)AfAm 21 (>60 ml/min/1.73 sqM) Est GFR (CKD-EPI)NonAf 18 (>60 ml/min/1.73 sqM) Glucose 111 H (74-99) mg/dL Calcium 9.0 (8.4-10.2) mg/dL Total Bilirubin 0.6 (0.2-1.3) mg/dL AST 25 (14-36) U/L ALT 14 (4-34) U/L Alkaline Phosphatase 66 (38-126) U/L Total Protein 7.3 (6.3-8.2) g/dL Albumin 4.5 (3.5-5.0) g/dL Disposition Clinical Impression: Allergic reaction Disposition: HOME SELF-CARE Condition: Good Instructions (If sedation given, give patient instructions): General Allergic Reaction (ED) Additional Instructions: Follow-up with PCP. Report back to ER with any new or worsening symptoms. Is patient prescribed a controlled substance at d/c from ED?: No Referrals: Teo Madrid MD [Primary Care Provider] - 1-2 days Time of Disposition: 23:24
== END 2023-03-02 23:33 | disposition home or self-care (01) ==
LOC: EC 20:03
DX: T60.2X1A Toxic effect of other insecticides, accidental (unintentional), initial encounter (principal); I10 Essential (primary) hypertension
CPT/HCPCS: 36415; 71046; 80053; 82375; 85025; 93005; 99285

== ENCOUNTER 2023-06-23 09:43 | Inpatient (IN) | payer MEDICARE, BC ==
[2023-06-23] MEDS ORDERED: ONDANSETRON 4 MG/2 ML VIAL IVP STA (10:23)
[2023-06-23] MEDS ORDERED: MORPHINE SULFATE 2 MG/ML SYRINGE IVP ONE (10:23)
--- NOTE | 2023-06-23 10:40 | ED ---
General Adult HPI - General Chief complaint: Back Pain/Injury Stated complaint: FALL Time Seen by Provider: 06/23/23 09:56 Source: patient, EMS, RN notes reviewed Mode of arrival: EMS Limitations: no limitations - History of Present Illness Initial comments: 87-year-old female presents emergency Department with chief complaint of fall. Patient states she was in the bathroom states that she moved and became dizzy and states that it causes her to fall yesterday. She had a loss conscious. She may have struck her head. She does complain of mid back pain, lower extremity pain. She states she has minimal pain at rest only with movement. She denies any bowel, bladder incontinence or retention or saddle anesthesias. She denies any blood thinners. She does have known kidney disease though she is not on dialysis yet. - Related Data Home Medications Medication Instructions Recorded Confirmed Torsemide [Demadex] 5 mg PO BID 04/01/19 06/23/23 carvediloL [Coreg] 25 mg PO BID 05/20/19 06/23/23 Albuterol Sulfate [Albuterol 2 puff PO RT-Q4H PRN 06/23/23 06/23/23 Sulfate Hfa] amLODIPine [Norvasc] 5 mg PO DAILY 06/23/23 06/23/23 hydrALAZINE HCL 12.5 mg PO BID 06/23/23 06/23/23 Allergies Allergy/AdvReac Type Severity Reaction Status Date / Time No Known Allergies Allergy Verified 06/23/23 13:49 Review of Systems ROS Statement: Those systems with pertinent positive or pertinent negative responses have been documented in the HPI. ROS Other: All systems not noted in ROS Statement are negative. Past Medical History Past Medical History: Hypertension Additional Past Medical History / Comment(s): kidney failure History of Any Multi-Drug Resistant Organisms: None Reported Past Surgical History: Joint Replacement Past Psychological History: No Psychological Hx Reported Smoking Status: Never smoker Past Alcohol Use History: Occasional Past Drug Use History: None Reported General Exam Limitations: no limitations General appearance: alert, in no apparent distress Head exam: Present: atraumatic, normocephalic, normal inspection Eye exam: Present: normal appearance, PERRL, EOMI. Absent: scleral icterus, conjunctival injection, periorbital swelling ENT exam: Present: normal exam, normal oropharynx, mucous membranes moist Neck exam: Present: normal inspection, full ROM. Absent: tenderness, meningismus, lymphadenopathy Respiratory exam: Present: normal lung sounds bilaterally. Absent: respiratory distress, wheezes, rales, rhonchi, stridor, chest wall tenderness, accessory muscle use Cardiovascular Exam: Present: regular rate, normal rhythm, normal heart sounds. Absent: systolic murmur, diastolic murmur, rubs, gallop, clicks GI/Abdominal exam: Present: soft, normal bowel sounds. Absent: distended, tenderness, guarding, rebound, rigid Extremities exam: Present: other (Moderate left ankle tenderness, neurovascular intact bilateral lower extremities with full range of motion) Back exam: Present: normal inspection, full ROM, tenderness, paraspinal tenderness, vertebral tenderness. Absent: CVA tenderness (R), CVA tenderness (L) Neurological exam: Present: alert, oriented X3, CN II-XII intact, reflexes normal. Absent: motor sensory deficit Skin exam: Present: warm, dry, intact, normal color. Absent: rash Course Vital Signs 06/23/23 06/23/23 09:46 12:42 Temperature 97.6 F Pulse Rate 67 65 Respiratory 18 18 Rate Blood Pressure 157/79 153/72 O2 Sat by Pulse 97 97 Oximetry EKG Findings - EKG Comments: EKG Findings:: EKG performed at 10:17 sinus rhythm with a rate of 65 WI 185/142 QT/QTc 443/454 - EKG Results: EKG: interpreted by BLADIMIR Medical Decision Making - Medical Decision Making Was pt. sent in by a medical professional or institution (, PA, BATCH FREEZER OPERATOR, urgent care, hospital, or usp...) When possible be specific @ -No Did you speak to anyone other than the patient for history (EMS, parent, family, police, friend...)? What history was obtained from this source @ -No Did you review nursing and triage notes (agree or disagree)? Why? @ -I reviewed and agree with nursing and triage notes Were old charts reviewed (outside hosp., previous admission, EMS record, old EKG, old radiological studies, urgent care reports/EKG's, usp records)? Report findings @ -No old charts were reviewed Differential Diagnosis (chest pain, altered mental status, abdominal pain women, abdominal pain men, vaginal bleeding, weakness, fever, dyspnea, syncope, headache, dizziness, GI bleed, back pain, seizure, CVA, palpatations, mental health, musculoskeletal)? @ -nDifferential Dizziness: Benign paroxysmal positional Vertigo, Menieres disease, otitis media, acoustic neuroma, vertebrobasilar insufficiency, cerebellar stroke, encephalitis, hypovolemic, arrhythmia, coronary artery syndrome, anemia, this is not meant to be an all-inclusive liste EKG interpreted by me (3pts min.). @ -As above X-rays interpreted by me (1pt min.). @ -X-ray and thoracic and lumbar spine show no acute fracture, x-ray left ankle no acute fracture CT interpreted by me (1pt min.). @ -CT brain, C-spine no intracranial hemorrhage, mass effect fracture noted U/S interpreted by me (1pt. min.). @ -None done What testing was considered but not performed or refused? (CT, X-rays, U/S, labs)? Why? @ -None What meds were considered but not given or refused? Why? @ -None Did you discuss the management of the patient with other professionals (professionals i.e. , PA, BATCH FREEZER OPERATOR, lab, RT, psych nurse, social sciences lecturer, van loader, teacher, security control room officer, showcase trimmer)? Give summary @ -Dr. Vanegas for admission secondary to persistent dizziness, potassium bleeding and unable to care for herself.] Was smoking cessation discussed for >3mins.? @ -No Was critical care preformed (if so, how long)? @ -No Were there social determinants of health that impacted care today? How? ( Homelessness, low income, unemployed, alcoholism, drug addiction, transportation, low edu. Level, literacy, decrease access to med. care, [facility], rehab)? @ -No Was there de-escalation of care discussed even if they declined (Discuss DNR or withdrawal of care, Hospice)? DNR status @ -No What co-morbidities impacted this encounter? (DM, HTN, Smoking, COPD, CAD, Cancer, CVA, ARF, Chemo, Hep., AIDS, mental health diagnosis, sleep apnea, morbid obesity)? @ -None Was patient admitted / discharged? Hospital course, mention meds given and route, prescriptions, significant lab abnormalities, going to OR and other pertinent info. @ -Admitted patient be admitted for possible rehab versus placement. Patient offers evaluation by nephrology as she has chronic kidney disease which is acute on chronic, Dr. Crocker for persistent dizziness. Undiagnosed new problem with uncertain prognosis? @ -No Drug Therapy requiring intensive monitoring for toxicity (Heparin, Nitro, Insulin, Cardizem)? @ -No Were any procedures done? @ -No Diagnosis/symptom? @ -Dizziness, weakness, multiple falls on difficult and bleeding Acute, or Chronic, or Acute on Chronic? @ -Acute Uncomplicated (without systemic symptoms) or Complicated (systemic symptoms)? @ -Complicated. Side effects of treatment? @ -No Exacerbation, Progression, or Severe Exacerbation? @ -No Poses a threat to life or bodily function? How? (Chest pain, [place], [place], pneumonia, PE, COPD, DKA, ARF, appy, cholecystitis, CVA, Diverticulitis, Homicidal, Suicidal, threat to staff... and all critical care pts) @ -No - Lab Data Result diagrams: 06/23/23 10:41 06/23/23 10:41 Lab Results 06/23/23 06/23/23 06/23/23 Range/Units 10:41 10:41 13:02 WBC 6.9 (3.8-10.6) k/uL RBC 3.95 (3.80-5.40) m/uL Hgb 11.3 L (11.4-16.0) gm/dL Hct 34.2 (34.0-46.0) % MCV 86.6 (80.0-100.0) fL MCH 28.5 (25.0-35.0) pg MCHC 33.0 (31.0-37.0) g/dL RDW 13.5 (11.5-15.5) % Plt Count 401 (150-450) k/uL MPV 7.9 Neutrophils % 68 % Lymphocytes % 18 % Monocytes % 8 % Eosinophils % 4 % Basophils % 1 % Neutrophils # 4.7 (1.3-7.7) k/uL Lymphocytes # 1.3 (1.0-4.8) k/uL Monocytes # 0.5 (0-1.0) k/uL Eosinophils # 0.3 (0-0.7) k/uL Basophils # 0.1 (0-0.2) k/uL Sodium 138 (137-145) mmol/L Potassium 3.8 (3.5-5.1) mmol/L Chloride 103 (98-107) mmol/L Carbon Dioxide 24 (22-30) mmol/L Anion Gap 11 mmol/L BUN 46 H (7-17) mg/dL Creatinine 3.00 H (0.52-1.04) mg/dL Est GFR (CKD-EPI)AfAm 15 (>60 ml/min/1.73 sqM) Est GFR (CKD-EPI)NonAf 13 (>60 ml/min/1.73 sqM) Glucose 85 (74-99) mg/dL Calcium 12.0 H (8.4-10.2) mg/dL Total Bilirubin 0.6 (0.2-1.3) mg/dL AST 26 (14-36) U/L ALT 15 (4-34) U/L Alkaline Phosphatase 68 (38-126) U/L Total Protein 6.2 L (6.3-8.2) g/dL Albumin 3.6 (3.5-5.0) g/dL Urine Color Light Yellow Urine Appearance Clear (Clear) Urine pH 6.0 (5.0-8.0) Ur Specific [place] 1.014 (1.001-1.035) Urine Protein 2+ H (Negative) Urine Glucose (UA) Negative (Negative) Urine Ketones Negative (Negative) Urine Blood Trace H (Negative) Urine Nitrite Negative (Negative) Urine Bilirubin Negative (Negative) Urine Urobilinogen <2.0 (<2.0) mg/dL Ur Leukocyte Esterase Negative (Negative) Urine RBC 1 (0-5) /hpf Urine WBC 1 (0-5) /hpf Ur Squamous Epith Cells 5 H (0-4) /hpf Urine Bacteria Rare H (None) /hpf Hyaline Casts 3 H (0-2) /lpf Urine Mucus Rare H (None) /hpf Disposition Clinical Impression: Weakness, Dizziness, Difficulty in walking Disposition: ADMITTED IP TO THIS HOSP Condition: Fair Referrals: Teo Madrid MD [Primary Care Provider] - 1-2 days Time of Disposition: 13:56
[2023-06-23 11:30] LABS: Basophils # (A) 0.1 k/uL (0-0.2); Basophils % (A) 1 %; Eosinophils # (A) 0.3 k/uL (0-0.7); Eosinophils % (A) 4 %; HCT 34.2 % (34.0-46.0); HGB 11.3 gm/dL (11.4-16.0); Lymphocytes # (A) 1.3 k/uL (1.0-4.8); Lymphocytes % (A) 18 %; MCH 28.5 pg (25.0-35.0); MCV 86.6 fL (80.0-100.0); Mean Platelet Volume 7.9; Monocytes # (A) 0.5 k/uL (0-1.0); Monocytes % (A) 8 %; Neutrophils # (A) 4.7 k/uL (1.3-7.7); Neutrophils % (A) 68 %; Platelet Count 401 k/uL (150-450); RBC 3.95 m/uL (3.80-5.40); RDW 13.5 % (11.5-15.5); WBC 6.9 k/uL (3.8-10.6)
--- NOTE | 2023-06-23 11:43 | XR ---
3 views left ankle. DATE: 06/23/2023. COMPARISON: None available. CLINICAL HISTORY: Pain after fall. FINDINGS: There is no fracture, subluxation or dislocation definitively seen. The joint spaces appear preserved. There is no significant soft tissue swelling. There is a small enthesophyte along the dorsal aspect of the calcaneus. IMPRESSION: No acute osseous abnormality identified radiographically.
--- NOTE | 2023-06-23 11:54 | XR ---
EXAMINATION TYPE: XR thoracic spine 3 views, XR pelvis AP view, XR lumbar spine 3V DATE OF EXAM: 06/23/2023 COMPARISON: NONE HISTORY: 87-year-old female with pain after fall FINDINGS: Thoracic spine: Osteopenia. COPD in the lungs. Atherosclerotic arch calcifications. 12 rib-bearing thoracic vertebral bodies. Moderate degenerative disc disease mid thoracic spine. Vertebral body heights are preserved and alignment is maintained. Lumbar spine: Osteopenia. 5 lumbar type vertebral bodies. Atherosclerotic calcification abdominal aorta and iliac a rteries with possible mild aneurysm infrarenal abdominal aorta to 3.4 cm. Hypertrophic facet arthropa thy throughout. Degenerative grade 1 anterolisthesis L4-L5. Vertebral body heights are preserved. Mil d multilevel degenerative disc disease. Pelvis: Mild degenerative joint space narrowing at the hips. Osteopenia. Vascular calcifications. No displace d fracture seen. IMPRESSION: 1. Thoracic spine: Osteopenia. Moderate degenerative disc disease midthoracic spine. No vertebral com pression collapse or malalignment. 2. Lumbar spine: Osteopenia. Hypertrophic facet arthropathy with degenerative grade 1 anterolisthesis L4-L5. Mild multilevel degenerative disc disease. No vertebral compression collapse. 3. Lumbar spine incidental: Atherosclerotic calcifications throughout the abdominal aorta and iliac a rteries. Suspect underlying AAA measuring at least 3.4 cm. 4. Pelvis: Mild degenerative joint space narrowing at the hips. Osteopenia. No displaced fracture see n.
--- NOTE | 2023-06-23 12:03 | CT ---
6 EXAMINATION TYPE: CT brain manav maxwell DATE OF EXAM: 06/23/2023 COMPARISON: None HISTORY: 87-year-old female Back pain CT DLP: 1212.5 mGycm Automated exposure control for dose reduction was used. Technique: Examination of the head was done in axial plane without intravenous contrast. Coronal and sagittal reconstructions performed. CT of the cervical spine was obtained in axial plane without intravenous injection of contrast mater ial. Coronal and sagittal reformatted images were obtained from the axial views for evaluation of f ractures, spinal alignment and canal. FINDINGS: Head: There is no evidence of acute intracranial hemorrhage, acute ischemic changes, mass, mass-effect, or extra-axial fluid collection. There is no effacement of cerebral sulci or basal subarachnoid cister ns. Mild to moderate hydrocephalus with Kobe's ratio calculated at 0.36. Moderate confluent periventr icular white matter hypodensities. There is no midline shift. Mejia-white matter distinction is prese rved. Prominent prostatic calcifications throughout the carotid siphons. Mild scalp contusion along the anterior left cranial convexity. No underlying calvarial fracture. Leftward nasal septal deviation. Paranasal sinuses and mastoid air cells well pneumatized. Orbits and globes are intact. Cervical spine: No craniocervical junction abnormality, predental space widening, or prevertebral soft tissue swellin g. Prominent degenerative change of the C1 dens articulation. Moderate degenerative disc disease mid to lower cervical spine especially C5-C7 levels. Reversal of the normal cervical lordosis. Multilevel facet and uncovertebral joint arthropathy is present. There is degenerative bony ankylosis across the facet joints on the right at C4-C5. Degenerative grade 1 anterolisthesis C4-C5 and trace grade 1 retrolisthesis C5-C6 and C6/C7. No acute fracture of the cervical spine. Disc osteophyte complex may contribute to moderate spinal canal stenosis at C5-C6. At C3-C4, moderate left neural foraminal stenosis. At C4-C5, there is severe right neural foraminal stenosis. At C5-C6, there is severe bilateral neural foraminal stenosis. At C6/C7, moderate to severe right and moderate left foraminal stenosis. Visualized upper lung shows focal patchy airspace opacity lateral right upper lobe Sagittal and coronal reformatted images confirm above findings. COMBINED IMPRESSION: 1. Mild left-sided scalp contusion. Note mild to moderate hydrocephalus which may in part relate to c entral cerebral atrophy. Correlate for possible underlying NPH. 2. Otherwise, no acute intracranial abnormality is seen. 3. Moderate multilevel spondylotic change cervical spine with degenerative grade 1 spondylolisthesis C4-C5, C5-C6, and C6-C7. Note neuroforaminal stenoses as outlined above as well as moderate spinal ca nal stenosis at C5-C6. 4. Note: Partially visualized focal airspace disease lateral right upper lobe. Correlate for possible pneumonia.
[2023-06-23 12:29] LABS: ALT 15 U/L (4-34); AST 26 U/L (14-36); African American GFR (CKD) 15 (>60 ml/min/1.73 sqM); Albumin 3.6 g/dL (3.5-5.0); Alkaline Phosphatase 68 U/L (38-126); Anion Gap 11 mmol/L; Blood Urea Nitrogen 46 mg/dL (7-17); Carbon Dioxide 24 mmol/L (22-30); Chloride 103 mmol/L (98-107); Glucose 85 mg/dL (74-99); Non-African American GFR(CKD) 13 (>60 ml/min/1.73 sqM); Potassium 3.8 mmol/L (3.5-5.1); Sodium 138 mmol/L (137-145); Total Bilirubin 0.6 mg/dL (0.2-1.3); Total Protein 6.2 g/dL (6.3-8.2)
[2023-06-23 13:27] LABS: Appearance,Urine Clear (Clear); Bacteria,Urine Rare /hpf; Bilirubin,Urine Negative (Negative); Blood,Urine Trace (Negative); Color,Urine Light Yellow; Glucose,Urine (UA) Negative (Negative); Hyaline Casts,Urine 3 /lpf (0-2); Ketones,Urine Negative (Negative); Leukocyte Esterase,Urine Negative (Negative); Mucus,Urine Rare /hpf; Nitrite,Urine Negative (Negative); Protein,Urine 2+ (Negative); RBC,Urine 1 /hpf (0-5); Specific Gravity,Urine 1.014 (1.001-1.035); Squamous Epithelial Cell,Urine 5 /hpf (0-4); Urobilinogen,Urine <2.0 mg/dL (<2.0); WBC,Urine 1 /hpf (0-5)
[2023-06-23] MEDS ORDERED: ONDANSETRON 4 MG/2 ML VIAL IVP PRN (13:58)
[2023-06-23] MEDS ORDERED: ACETAMINOPHEN TAB 325 MG TAB PO PRN (13:58)
[2023-06-23] MEDS ORDERED: NALOXONE 0.4 MG/ML 1 ML VIAL IV PRN (13:58)
--- NOTE | 2023-06-23 18:17 | P.HPIM ---
History of Present Illness H&P Date: 06/23/23 Chief Complaint: Fall/weakness 87-year-old female with history of hypertension and chronic kidney disease stage IV presents emergency Department with chief complaint of fall. Patient states she was in the bathroom states that she moved and became dizzy and states that it causes her to fall yesterday. She had a loss conscious. She may have struck her head. She does complain of mid back pain, lower extremity pain. She states she has minimal pain at rest only with movement. She denies any bowel, bladder incontinence or retention or saddle anesthesias. She denies any blood thinners. She does have known kidney disease though she is not on dialysis yet. Patient's family is at bedside and reports that patient has been getting weaker lately and not able to care for self EKG Findings:: sinus rhythm with a rate of 65 MD 185/142 QT/QTc 443/454 X-ray of the thoracic and lumbar spine completed reveals no acute fracture; x- ray left ankle does not reveal any acute abnormality CT head and C-spine is negative for any acute intracranial hemorrhage or mass effect; no fractures Review of Systems REVIEW OF SYSTEMS: CONSTITUTIONAL: No fever, no malaise, no fatigue. HEENT: No recent visual problems or hearing problems. Denied any sore throat. CARDIOVASCULAR: No chest pain, orthopnea, PND, no palpitations, no syncope. PULMONARY: No shortness of breath, no cough, no hemoptysis. GASTROINTESTINAL: No diarrhea, no nausea, no vomiting, no abdominal pain. NEUROLOGICAL: No headaches, no weakness, no numbness. HEMATOLOGICAL: Denies any bleeding or petechiae. GENITOURINARY: Denies any burning micturition, frequency, or urgency. MUSCULOSKELETAL/RHEUMATOLOGICAL: Denies any joint pain, swelling, or any muscle pain. ENDOCRINE: Denies any polyuria or polydipsia. The rest of the 14-point review of systems is negative. Past Medical History Past Medical History: Hypertension Additional Past Medical History / Comment(s): kidney failure History of Any Multi-Drug Resistant Organisms: None Reported Past Surgical History: Joint Replacement Past Psychological History: No Psychological Hx Reported Smoking Status: Never smoker Past Alcohol Use History: Occasional Past Drug Use History: None Reported Medications and Allergies Home Medications Medication Instructions Recorded Confirmed Type Torsemide [Demadex] 5 mg PO BID 04/01/19 06/23/23 History carvediloL [Coreg] 25 mg PO BID 05/20/19 06/23/23 History Albuterol Sulfate [Albuterol 2 puff PO RT-Q4H PRN 06/23/23 06/23/23 History Sulfate Hfa] amLODIPine [Norvasc] 5 mg PO DAILY 06/23/23 06/23/23 History hydrALAZINE HCL 12.5 mg PO BID 06/23/23 06/23/23 History Allergies Allergy/AdvReac Type Severity Reaction Status Date / Time No Known Allergies Allergy Verified 06/23/23 13:49 Physical Exam Vitals: Vital Signs Temp Pulse Resp BP Pulse Ox 06/23/23 16:46 65 18 149/61 97 06/23/23 12:42 65 18 153/72 97 06/23/23 09:46 97.6 F 67 18 157/79 97 Intake and Output 06/23/23 06/23/23 06/23/23 06:59 14:59 22:59 Other: Weight 45.359 kg General appearance: alert, in no apparent distress Head exam: Present: atraumatic, normocephalic, normal inspection Eye exam: Present: normal appearance, PERRL, EOMI. Absent: scleral icterus, conjunctival injection, periorbital swelling ENT exam: Present: normal exam, normal oropharynx, mucous membranes moist Neck exam: Present: normal inspection, full ROM. Absent: tenderness, meningismus, lymphadenopathy Respiratory exam: Present: normal lung sounds bilaterally. Absent: respiratory distress, wheezes, rales, rhonchi, stridor, chest wall tenderness, accessory muscle use Cardiovascular Exam: Present: regular rate, normal rhythm, normal heart sounds. Absent: systolic murmur, diastolic murmur, rubs, gallop, clicks GI/Abdominal exam: Present: soft, normal bowel sounds. Absent: distended, tenderness, guarding, rebound, rigid Extremities exam: Present: other (Moderate left ankle tenderness, neurovascular intact bilateral lower extremities with full range of motion) Back exam: Present: normal inspection, full ROM, tenderness, paraspinal tenderne ss, vertebral tenderness. Absent: CVA tenderness (R), CVA tenderness (L) Neurological exam: Present: alert, oriented X3, CN II-XII intact, reflexes normal. Absent: motor sensory deficit Skin exam: Present: warm, dry, intact, normal color. Absent: rash Results CBC & Chem 7: 06/23/23 10:41 06/23/23 10:41 Labs: Abnormal Lab Results - Last 24 Hours (Table) 06/23/23 06/23/23 06/23/23 Range/Units 10:41 10:41 13:02 Hgb 11.3 L (11.4-16.0) gm/dL BUN 46 H (7-17) mg/dL Creatinine 3.00 H (0.52-1.04) mg/dL Calcium 12.0 H (8.4-10.2) mg/dL Total Protein 6.2 L (6.3-8.2) g/dL Urine Protein 2+ H (Negative) Urine Blood Trace H (Negative) Ur Squamous Epith Cells 5 H (0-4) /hpf Urine Bacteria Rare H (None) /hpf Hyaline Casts 3 H (0-2) /lpf Urine Mucus Rare H (None) /hpf Assessment and Plan Assessment: 1. Acute on chronic kidney disease stage IV - Slow IV fluid hydration with half-normal saline at rate of 75 mL an hour; we will monitor strict LAUREN's, daily weights, renal function and electrolytes; avoid nephrotoxins and hypotension 2. Dizziness/fall - Workup completed in ED including CT of the head, C-spine and x-ray of thoracic and lumbar spine is unremarkable - Patient will be admitted for further neurology evaluation 3. Weakness/generalized decline; consult PT/OT 4. Hypertension; patient takes amlodipine 5 mg daily, Coreg 25 mg twice a day and hydralazine 12.5 mg twice a day - We will hold Demadex 5 mg twice a day DVT prophylaxis; SCDs CODE STATUS; full code
[2023-06-23] MEDS: carvediloL 12.5 MG TAB PO SCH (18:55)
[2023-06-23] MEDS: hydrALAZINE HCL 25 MG TAB PO SCH (19:45)
[2023-06-24] MEDS: carvediloL 12.5 MG TAB PO SCH ×2 (06:37→19:10)
[2023-06-24 07:49] LABS: African American GFR (CKD) 15 (>60 ml/min/1.73 sqM); Anion Gap 10 mmol/L; Blood Urea Nitrogen 44 mg/dL (7-17); Calcium 10.6 mg/dL (8.4-10.2); Carbon Dioxide 21 mmol/L (22-30); Chloride 100 mmol/L (98-107); Glucose 73 mg/dL (74-99); Non-African American GFR(CKD) 13 (>60 ml/min/1.73 sqM); Sodium 131 mmol/L (137-145)
[2023-06-24 08:20] LABS: Basophils % (A) 1 %; Eosinophils # (A) 0.5 k/uL (0-0.7); Eosinophils % (A) 9 %; HCT 28.4 % (34.0-46.0); Lymphocytes # (A) 1.3 k/uL (1.0-4.8); Lymphocytes % (A) 24 %; MCV 87.7 fL (80.0-100.0); Monocytes # (A) 0.5 k/uL (0-1.0); Monocytes % (A) 10 %; Neutrophils # (A) 2.8 k/uL (1.3-7.7); Neutrophils % (A) 53 %; Platelet Count 333 k/uL (150-450); RBC 3.24 m/uL (3.80-5.40); RDW 13.3 % (11.5-15.5); WBC 5.2 k/uL (3.8-10.6)
[2023-06-24 08:37] LABS: HGB 9.4 gm/dL (11.4-16.0)
[2023-06-24] MEDS: amLODIPine 5 MG TAB PO SCH (10:07)
[2023-06-24] MEDS: hydrALAZINE HCL 25 MG TAB PO SCH ×2 (10:07→20:44)
--- NOTE | 2023-06-24 11:15 | P.NPCON ---
History of Present Illness - Reason for Consult chronic renal failure - History of Present Illness Patient is an 87-year-old female with history of hypertension and chronic kidney disease NKF stage 4 with baseline creatinine around 2.2-2.3 mg/dL. Patient is admitted to the hospital with history of fall. She states that she does not remember what happened when she was in the bathroom and getting ready to go out. No symptoms of lightheadedness or dizziness prior to that. Blood pressure not noted to be significantly low. No history of nausea vomiting or diarrhea. Serum creatinine at 3.0 mg/dL. Patient has been voiding. Review of Systems As per HPI. Past Medical History Past Medical History: Hypertension Additional Past Medical History / Comment(s): kidney failure History of Any Multi-Drug Resistant Organisms: None Reported Past Surgical History: Joint Replacement Additional Past Surgical History / Comment(s): knees replaced Past Psychological History: No Psychological Hx Reported Smoking Status: Former smoker Past Alcohol Use History: Occasional Past Drug Use History: None Reported Medications and Allergies Home Medications Medication Instructions Recorded Confirmed Type Torsemide [Demadex] 5 mg PO BID 04/01/19 06/23/23 History carvediloL [Coreg] 25 mg PO BID 05/20/19 06/23/23 History Albuterol Sulfate [Albuterol 2 puff PO RT-Q4H PRN 06/23/23 06/23/23 History Sulfate Hfa] amLODIPine [Norvasc] 5 mg PO DAILY 06/23/23 06/23/23 History hydrALAZINE HCL 12.5 mg PO BID 06/23/23 06/23/23 History Allergies Allergy/AdvReac Type Severity Reaction Status Date / Time No Known Allergies Allergy Verified 06/23/23 13:49 Physical Exam Vitals: Vital Signs Temp Pulse Pulse Resp BP BP Pulse Ox 06/24/23 07:15 98.0 F 60 16 153/66 94 L 06/24/23 02:00 98.2 F 64 16 144/68 94 L 06/23/23 21:32 98.6 F 94 18 134/69 95 06/23/23 20:00 98.1 F 66 16 171/84 94 L 06/23/23 18:42 98.2 F 63 18 147/62 97 06/23/23 16:46 65 18 149/61 97 06/23/23 12:42 65 18 153/72 97 Intake and Output 06/23/23 06/24/23 06/24/23 22:59 06:59 14:59 Intake Total 450 Output Total 300 Balance 150 Intake: IV 450 0.45 450 Output: Urine 300 Other: Voiding Method Toilet # Voids 2 # Bowel Movements 1 Weight 45.359 kg Patient is awake, comfortable, no acute distress Examination of the heart S1 and S2 Examination of the lungs bilateral breath sounds are heard Abdomen is soft nontender Examination of lower extremities shows no evidence of edema 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 Acute kidney injury most likely prerenal with possible component of ATN. Blood pressure not significantly low. I will check orthostatic blood pressures. UA is quite benign with 2+ protein and trace blood. No nephrotoxic agents noted. 2. Chronic kidney disease NKF stage IV secondary to nephrosclerosis with no plans for renal replacement therapy. 3. Hypertension with CK D stage IV 4. Status post fall and syncope. Urology has been consulted. Plan: Add IV hydration Check orthostatic blood pressures Repeat labs in a.m. No plans for renal replacement therapy. Next Thank you for the consultation. We will continue to follow the patient with you during her hospitalization.
[2023-06-24] MEDS: SODIUM CHLORIDE 0.9% 1,000 ML IV SCH (12:31)
[2023-06-24] MEDS: PANTOPRAZOLE 40 MG/10 ML VIAL IVP SCH ×2 (12:31→20:45)
--- NOTE | 2023-06-24 15:52 | P.PN ---
Subjective Progress Note Date: 06/24/23 87-year-old female with history of hypertension and chronic kidney disease stage IV presents emergency Department with chief complaint of fall. Patient states she was in the bathroom states that she moved and became dizzy and states that it causes her to fall yesterday. She had a loss conscious. She may have struck her head. She does complain of mid back pain, lower extremity pain. She states she has minimal pain at rest only with movement. She denies any bowel, bladder incontinence or retention or saddle anesthesias. She denies any blood thinners. She does have known kidney disease though she is not on dialysis yet. Patient's family is at bedside and reports that patient has been getting weaker lately and not able to care for self EKG Findings:: sinus rhythm with a rate of 65 IA 185/142 QT/QTc 443/454 X-ray of the thoracic and lumbar spine completed reveals no acute fracture; x- ray left ankle does not reveal any acute abnormality CT head and C-spine is negative for any acute intracranial hemorrhage or mass effect; no fractures Objective - Vital Signs Vital signs: Vital Signs Temp 98.0 F 06/24/23 07:15 Pulse 60 06/24/23 07:15 Resp 16 06/24/23 07:15 BP 153/66 06/24/23 07:15 Pulse Ox 94 L 06/24/23 07:15 FiO2 Intake & Output 06/23/23 06/24/23 06/24/23 18:59 06:59 18:59 Intake Total 450 Output Total 300 Balance 150 Weight 45.359 kg 45.359 kg Intake: IV 450 0.45 450 Output: Urine 300 Other: Voiding Method Toilet # Voids 2 # Bowel Movements 1 - Exam General appearance: alert, in no apparent distress Head exam: Present: atraumatic, normocephalic, normal inspection Eye exam: Present: normal appearance, PERRL, EOMI. Absent: scleral icterus, con junctival injection, periorbital swelling ENT exam: Present: normal exam, normal oropharynx, mucous membranes moist Neck exam: Present: normal inspection, full ROM. Absent: tenderness, meningismus, lymphadenopathy Respiratory exam: Present: normal lung sounds bilaterally. Absent: respiratory distress, wheezes, rales, rhonchi, stridor, chest wall tenderness, accessory muscle use Cardiovascular Exam: Present: regular rate, normal rhythm, normal heart sounds. Absent: systolic murmur, diastolic murmur, rubs, gallop, clicks GI/Abdominal exam: Present: soft, normal bowel sounds. Absent: distended, tenderness, guarding, rebound, rigid Extremities exam: Present: other (Moderate left ankle tenderness, neurovascular intact bilateral lower extremities with full range of motion) Back exam: Present: normal inspection, full ROM, tenderness, paraspinal tenderness, vertebral tenderness. Absent: CVA tenderness (R), CVA tenderness (L) Neurological exam: Present: alert, oriented X3, CN II-XII intact, reflexes normal. Absent: motor sensory deficit Skin exam: Present: warm, dry, intact, normal color. Absent: rash - Labs CBC & Chem 7: 06/24/23 06:30 06/24/23 06:30 Labs: Abnormal Lab Results - Last 24 Hours (Table) 06/23/23 06/23/23 06/23/23 Range/Units 10:41 10:41 13:02 RBC (3.80-5.40) m/uL Hgb 11.3 L (11.4-16.0) gm/dL Hct (34.0-46.0) % Sodium (137-145) mmol/L Carbon Dioxide (22-30) mmol/L BUN 46 H (7-17) mg/dL Creatinine 3.00 H (0.52-1.04) mg/dL Glucose (74-99) mg/dL Calcium 12.0 H (8.4-10.2) mg/dL Total Protein 6.2 L (6.3-8.2) g/dL Urine Protein 2+ H (Negative) Urine Blood Trace H (Negative) Ur Squamous Epith Cells 5 H (0-4) /hpf Urine Bacteria Rare H (None) /hpf Hyaline Casts 3 H (0-2) /lpf Urine Mucus Rare H (None) /hpf 06/24/23 06/24/23 Range/Units 06:30 06:30 RBC 3.24 L (3.80-5.40) m/uL Hgb 9.4 L D (11.4-16.0) gm/dL Hct 28.4 L (34.0-46.0) % Sodium 131 L (137-145) mmol/L Carbon Dioxide 21 L (22-30) mmol/L BUN 44 H (7-17) mg/dL Creatinine 3.01 H (0.52-1.04) mg/dL Glucose 73 L (74-99) mg/dL Calcium 10.6 H (8.4-10.2) mg/dL Total Protein (6.3-8.2) g/dL Urine Protein (Negative) Urine Blood (Negative) Ur Squamous Epith Cells (0-4) /hpf Urine Bacteria (None) /hpf Hyaline Casts (0-2) /lpf Urine Mucus (None) /hpf Assessment and Plan Assessment: 1. Acute on chronic kidney disease stage IV - Slow IV fluid hydration with half-normal saline at rate of 75 mL an hour; we will monitor strict LAUREN's, daily weights, renal function and electrolytes; avoid nephrotoxins and hypotension 2. Dizziness/fall - Workup completed in ED including CT of the head, C-spine and x-ray of thoracic and lumbar spine is unremarkable - Patient will be admitted for further neurology evaluation 3. Weakness/generalized decline; consult PT/OT 4. Hypertension; patient takes amlodipine 5 mg daily, Coreg 25 mg twice a day and hydralazine 12.5 mg twice a day - We will hold Demadex 5 mg twice a day DVT prophylaxis; SCDs CODE STATUS; full code
[2023-06-24 16:44] LABS: Basophils # (A) 0.1 k/uL (0-0.2); Basophils % (A) 1 %; Eosinophils # (A) 0.4 k/uL (0-0.7); Eosinophils % (A) 7 %; HCT 28.8 % (34.0-46.0); HGB 9.6 gm/dL (11.4-16.0); Lymphocytes # (A) 1.2 k/uL (1.0-4.8); Lymphocytes % (A) 23 %; MCH 29.3 pg (25.0-35.0); MCHC 33.3 g/dL (31.0-37.0); MCV 87.9 fL (80.0-100.0); Mean Platelet Volume 8.1; Monocytes # (A) 0.5 k/uL (0-1.0); Monocytes % (A) 9 %; Neutrophils # (A) 3.1 k/uL (1.3-7.7); Neutrophils % (A) 57 %; Platelet Count 316 k/uL (150-450); RBC 3.27 m/uL (3.80-5.40); RDW 13.4 % (11.5-15.5); WBC 5.3 k/uL (3.8-10.6)
--- NOTE | 2023-06-24 20:02 | US ---
EXAMINATION TYPE: US carotid duplex BILAT DATE OF EXAM: 06/24/2023 COMPARISON: NONE CLINICAL INDICATION: Female, 87 years old with history of dizziness, syncope; Pt passed out yesterday TECHNIQUE: Carotid duplex ultrasound examination. Indirect Doppler criteria was utilized. FINDINGS: EXAM MEASUREMENTS: RIGHT: Peak Systolic Velocity (PSV) cm/sec ----- Right CCA: 40.6 ----- Right ICA: 83.5 ----- Right ECA: 155.5 ICA/CCA ratio: 2.1 RIGHT: End Diastole cm/sec ----- Right CCA: 7.6 ----- Right ICA: 14.2 ----- Right ECA: 7.7 LEFT: Peak Systolic Velocity (PSV) cm/sec ----- Left CCA: 46.1 ----- Left ICA: 84.2 ----- Left ECA: 49.4 ICA/CCA ratio: 1.8 LEFT: End Diastole cm/sec ----- Left CCA: 12.0 ----- Left ICA: 17.1 ----- Left ECA: 4.9 VERTEBRALS (direction of flow): Right Vertebral: Antegrade Left Vertebral: Antegrade Rhythm: Normal SOCIAL SERVICES MANAGER NOTES: Plaque seen in bilateral bulbs IMPRESSION: Mild to moderate atherosclerotic change at the bifurcations but no hemodynamically significant fashion buying internship al carotid artery stenosis on either side. Criteria for Assigning % of Stenosis / Diameter reduction (Estimation based on the indirect measurements of the internal carotid artery velocities (ICA PSV). 1. Normal (no stenosis)=ICA PSV < 125 cm/s: ratio < 2.0: ICA EDV<40 cm/s. 2. Less than 50% stenosis=ICA PSV < 125 cm/s: ratio < 2.0: ICA EDV<40 cm/s. 3. 50 to 69% stenosis=ICA PSV of 125 to 230 cm/s: ration 2.0 ? 4.0: ICA EDV 40-100 cm/s. 4. Greater than 70% stenosis to near occlusion= ICA PSV > 230 cm/s: ratio > 4.0: ICA EDV > 100 cm/s. 5. Near occlusion= ICA PSV velocities may be low or undetectable: variable ratio and ICA EDV. 6. Total occlusion=unable to detect flow.
[2023-06-25] MEDS: carvediloL 12.5 MG TAB PO SCH ×2 (06:42→17:22)
[2023-06-25] MEDS: SODIUM CHLORIDE 0.9% 1,000 ML IV SCH ×2 (06:42→16:28)
[2023-06-25] MEDS: hydrALAZINE HCL 25 MG TAB PO SCH ×2 (09:03→20:13)
[2023-06-25] MEDS: PANTOPRAZOLE 40 MG/10 ML VIAL IVP SCH ×2 (09:03→20:13)
[2023-06-25] MEDS: amLODIPine 5 MG TAB PO SCH (09:04)
--- NOTE | 2023-06-25 11:12 | P.CNNES ---
History of Present Illness Consult date: 06/24/23 Requesting physician: John Hernandes Reason for Consult: Dizziness, hallucinations History of Present Illness: Patient is a 87-year-old left-handed female was brought to the hospital by ambulance yesterday at 9:43 AM for difficulty walking, and recent fall. As per EMS flow sheet, when they arrived, patient was laying in her bed, alert and oriented 4. The patient mentioned that yesterday morning she fell into the tub while in the bathroom. The patient stated that she is not sure why she fell, but does remember the fall and denies any loss of consciousness. The patient mentioned that she was able to get up on her own at the time of the fall. She has been complaining of back and hip pain since her fall yesterday. The patient mentioned that this morning when she woke up, her back and hip were hurting really bad whenever she moves to the point that she is unable to sit up or stand. Patient mentions that as long as she remains in a laying position, she is pain-free. There were no visible deformities and was able to move all extremities. Her pupils were equal and reactive. Patient denied any head or neck pain. Patient does have pain upon palpation of her hips bilaterally. Also complaining of pain in the mid to lower thoracic area upon palpation. Patient's vitals at the scene was blood pressure 183/93, pulse rate 70, respirations 16 saturation 96%. She remained hypertensive during the transport. At present patient is laying in the bed, appears very alert awake comfortable. Patient's son was also present, who is constantly texting his brother about patient's condition. Both of them were providing history, but sometimes the timeframe was sometimes not consistent. Patient herself who appears very smart, does not seem to be agreeing with what her son is telling. I spent a lot of time, trying to gather the history. It appears 3 weeks ago patient was prescribed a muscle relaxer. A fter she took a couple doses, she slept for 16-1/2 hours straight. When she woke up, she was slightly disoriented, slightly hallucinating which occurred overnight and she was basically fine the next day. Patient had an upper respiratory infection 3 weeks ago on no antibiotics were prescribed. About 3 weeks ago, patient was cooking in the kitchen and the cleaning lady has changed the floor or drugs. While she was working on the oven, she stepped backwards towards her microwave, and did not realize the legs were changed and she tripped and fell backwards. Although this fall was 3 weeks ago, but was not related to the muscle relaxer or the respiratory infection that they mentioned above. She was fine after the fall. Patient states that in the last 3 days prior to arrival, she has been having an episode of dizziness, which is very momentarily, occurring about once a day, and the last event that occurred, led to the fall in the bathroom as mentioned above. She did not pass out, lost consciousness. She does not know how she fell, but she was able to get up right away. She descri bes her episode of dizziness as lightheadedness. There is no activity that triggers this dizzy spell. Patient states that the day after the fall patient was so all over, could not get out of bed, therefore the family called the ambulance and brought her to the hospital. At present patient feels that she needs help to get up, to go to the bathroom which never happened before. She used to drive, gets around very well. She does not use any assistive device at baseline (prior to this fall). Patient denies any strokelike symptoms. Patient's son mentions that she was hallucinating after she fell on , the day prior to arrival, seeing some dogs with her [id number]. Patient completely denies any hallucinations. Patient denies any leaking or urgency of urination. Patient denies any memory disturbance. The family also mentioned that patient was exposed to a round up in January 2023 and she has some respiratory reaction from that. She couldn't breathe, and she passed out as she couldn't breathe. She was in the hospital. Blood pressure on arrival 157/79, pulse is 67 temperature 97.6. Blood pressure was normal CBC, electrolytes, BUN 46, creatinine 3.0. Hepatic panel is normal, UA is normal. Patient does have chronic renal insufficiency, which seems to be getting worse. EKG shows normal sinus rhythm. X-ray of the thoracic, pelvic and lumbar spines revealed osteopenia, moderate degenerative disc disease mid thoracic spine. No vertebral compression collapse or malalignment. Osteopenia and hypertrophic facet arthropathy with degenerative grade 1 anterolisthesis L4- L5. No vertebral compression collapse. Pelvis also showed mild degenerative joint space narrowing at the hips and osteopenia with no fracture. CT of the head revealed mild left scalp contusion. Mild to moderate hydrocephalus, which may in part related to central cerebral atrophy. Correlate for possible underlying NPH. Moderate multilevel spondylotic change cervical spine with degenerative grade 1 spondylolisthesis C4-C5, C5-C6, and C6-C7. Moderate spinal canal stenosis at C5-C6. Patient has stage V chronic renal disease and sees Dr. Phipps for last 7 years. Patient smokes half pack per day for 30 years, quit 40 years ago. She drinks cocktail once in a while. Patient has hypertension but no diabetes. Review of Systems Constitutional: Denies chills, Denies fever Eyes: denies blurred vision, denies decreased vision, denies diplopia, denies pain Ears: deny: decreased hearing, tinnitus Ears, nose, mouth and throat: Denies headache, Denies sore throat Cardiovascular: Denies chest pain, Denies shortness of breath Respiratory: Denies cough, Denies excessive sputum (Recent URI) Gastrointestinal: Denies abdominal pain, Denies diarrhea, Denies nausea, Denies vomiting Genitourinary: Denies dysuria, Denies hematuria, Denies urge incontinence, Denies urgency Musculoskeletal: Reports myalgias, Denies low back pain, Denies neck pain Integumentary: Denies pruritus, Denies rash Neurological: Reports as per HPI Psychiatric: Denies anxiety, Denies depression Hematologic/Lymphatic: Denies easy bleeding, Denies easy bruising Past Medical History Past Medical History: Hypertension Additional Past Medical History / Comment(s): kidney failure History of Any Multi-Drug Resistant Organisms: None Reported Past Surgical History: Joint Replacement Additional Past Surgical History / Comment(s): knees replaced Past Psychological History: No Psychological Hx Reported Smoking Status: Former smoker Past Alcohol Use History: Occasional Past Drug Use History: None Reported Medications and Allergies Home Medications Medication Instructions Recorded Confirmed Type Torsemide [Demadex] 5 mg PO BID 04/01/19 06/23/23 History carvediloL [Coreg] 25 mg PO BID 05/20/19 06/23/23 History Albuterol Sulfate [Albuterol 2 puff PO RT-Q4H PRN 06/23/23 06/23/23 History Sulfate Hfa] amLODIPine [Norvasc] 5 mg PO DAILY 06/23/23 06/23/23 History hydrALAZINE HCL 12.5 mg PO BID 06/23/23 06/23/23 History Allergies Allergy/AdvReac Type Severity Reaction Status Date / Time No Known Allergies Allergy Verified 06/23/23 13:49 Physical Examination - Vital Signs Vital Signs: Vital Signs Temp Pulse Pulse Resp BP BP Pulse Ox 06/24/23 12:21 97.5 F L 68 17 123/64 91 L 06/24/23 07:15 98.0 F 60 16 153/66 94 L 06/24/23 02:00 98.2 F 64 16 144/68 94 L 06/23/23 21:32 98.6 F 94 18 134/69 95 06/23/23 20:00 98.1 F 66 16 171/84 94 L 06/23/23 18:42 98.2 F 63 18 147/62 97 06/23/23 16:46 65 18 149/61 97 Intake and Output 06/24/23 06/24/23 06/24/23 06:59 14:59 22:59 Intake Total 450 Output Total 300 Balance 150 Intake: IV 450 0.45 450 Output: Urine 300 Other: Voiding Method Toilet # Voids 2 # Bowel Movements 1 Patient is an elderly female, very pleasant, in no acute distress. Patient is alert awake oriented to time place and person. She knows it is June and the year is 2022, Christ. She knows her full address and that she lives in [facility]. She knows that she is currently in [facility] did she does not know name of the current president but she does not follow the politics. Speech and language functions are normal. Patient can name and repeat very well. No aphasia or dysarthria. Attention, concentration and fund of knowledge is adequate. On cranial nerve examination, pupils are equal, round and reacting to light, visual blood are full on confrontation, with no neglect on double simultaneous stimulation. Extraocular muscles are intact with no nystagmus. Face is symmetric, tongue protrudes to the midline. Palatal elevation and sensation normal, hearing and shoulder shrug normal, facial sensation normal. On muscle strength testing, there is no pronator drift. The strength is normal in the upper extremities although she is slightly sore. In the lower limbs, her hip flexion is 4- bilaterally with significant soreness. Ankle dorsiflexion is 5. Deep tendon reflexes are (right/left) biceps 2/2, brachioradialis 2/2, knees 1/2, ankles 1 bilaterally and plantars are flat. Sensory to touch is equal with no neglect on double simultaneous stimulation. Cerebellar function showed no ataxia for [id number] testing. No dysdiadochokinesia. She could not perform [id number] testing because of pain. Tone and bulk of muscles normal. Gait deferred. Patient states that she is too weak, cannot walk. On general examination, there is no carotid bruit or murmur, S1-S2 audible. Chest is clear on consultation. Abdomen is soft nontender. No organomegaly, bowel sounds present. Peripheral pulses are present. No peripheral edema. Results - Laboratory Findings CBC and BMP: 06/24/23 16:17 06/24/23 06:30 Abnormal Lab Findings: Abnormal Labs 06/23/23 06/23/23 06/23/23 10:41 10:41 13:02 RBC Hgb 11.3 L Hct Sodium Carbon Dioxide BUN 46 H Creatinine 3.00 H Glucose Calcium 12.0 H Total Protein 6.2 L Urine Protein 2+ H Urine Blood Trace H Ur Squamous Epith Cells 5 H Urine Bacteria Rare H Hyaline Casts 3 H Urine Mucus Rare H 06/24/23 06/24/23 06:30 06:30 RBC 3.24 L Hgb 9.4 L D Hct 28.4 L Sodium 131 L Carbon Dioxide 21 L BUN 44 H Creatinine 3.01 H Glucose 73 L Calcium 10.6 H Total Protein Urine Protein Urine Blood Ur Squamous Epith Cells Urine Bacteria Hyaline Casts Urine Mucus Assessment and Plan Assessment: * Status post fall 06/22/2023 (1 day prior to arrival) due to transient dizziness, unclear cause. Patient has been having very brief, transient dizzy spells sporadically for 3 days prior to the fall. * History of accidental fall by tripping backwards about 3 weeks ago. Patient also had some upper respiratory infection 3 weeks ago, and she may have developed some peripheral vestibular dysfunction leading to these dizzy spells. * Abnormal CT head, with possibility of normal pressure hydrocephalus. * Acute onset of gait difficulty, not able to walk since the day after the fall (since day of admission). * Acute on chronic renal insufficiency, stage V chronic renal disease * Hypertension Plan: * Patient will undergo syncopal workup. * Carotid Doppler, rule out stenosis * B12, folate, MMA, B1, B6 level and TSH. * PT OT evaluate gait. * Anti-inflammatory medications contraindicated because of renal failure. * Patient's renal function is worsening. Will defer to IM/nephrology. * CT head revealed possibility of hydrocephalus. Patient did not have any gait difficulty prior to the fall. She denies any problems with memory functions or bladder control. We will follow clinically. If she has any persistent symptoms of NPH, then may need further workup including an MRI of the brain. Discussed with patient and her son in great detail. * Neurology will follow. Thank you for the consult. Time with Patient: Greater than 30
[2023-06-25 11:16] LABS: BUN/Creat Ratio 13.17 Ratio (12.00-20.00); Blood Urea Nitrogen 39.5 mg/dL (9.0-27.0); Calcium 10.6 mg/dL (8.7-10.3); Chloride 103 mmol/L (96-109); Glucose 83 mg/dL (70-110); Potassium 4.2 mmol/L (3.5-5.5); Sodium 135 mmol/L (135-145)
--- NOTE | 2023-06-25 11:35 | P.PN ---
Subjective Patient is seen for follow-up for acute kidney injury on chronic kidney disease. Orthostatic hypotension was noted. Renal function is stable with creatinine staying at 3.0. Maintained on IV fluids. 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 Acute kidney injury most likely prerenal with possible component of ATN. Significant orthostatic hypotension noted. Currently maintained on IV fluids. UA is quite benign with 2+ protein and trace blood. No nephrotoxic agents noted. 2. Chronic kidney disease NKF stage IV secondary to nephrosclerosis with no plans for renal replacement therapy. 3. Hypertension with CK D stage IV 4. Status post fall and syncope. Neurology has been consulted. Plan: Continue IV fluids Decrease antihypertensive medications Increase ambulation as tolerated.
[2023-06-25 15:56] VITALS: BMI 18.3
--- NOTE | 2023-06-25 17:16 | P.PN ---
Subjective Progress Note Date: 06/25/23 87-year-old female with history of hypertension and chronic kidney disease stage IV presents emergency Department with chief complaint of fall. Patient states she was in the bathroom states that she moved and became dizzy and states that it causes her to fall yesterday. She had a loss conscious. She may have struck her head. She does complain of mid back pain, lower extremity pain. She states she has minimal pain at rest only with movement. She denies any bowel, bladder incontinence or retention or saddle anesthesias. She denies any blood thinners. She does have known kidney disease though she is not on dialysis yet. Patient's family is at bedside and reports that patient has been getting weaker lately and not able to care for self EKG Findings:: sinus rhythm with a rate of 65 MN 185/142 QT/QTc 443/454 X-ray of the thoracic and lumbar spine completed reveals no acute fracture; x- ray left ankle does not reveal any acute abnormality CT head and C-spine is negative for any acute intracranial hemorrhage or mass effect; no fractures 24 hour interval change 06/25/2023 Patient is seen and evaluated sitting up in bedside chair along with family members at bedside; wants to be discharged home Vital signs are reviewed; patient is positive for orthostatic hypotension; nephrology recommending to continue to maintain IV fluids; creatinine remained stable at 3.0 - Patient to be evaluated by PT/OT for discharge recommendations Objective - Vital Signs Vital signs: Vital Signs Temp 98.4 F 06/25/23 08:00 Pulse 63 06/25/23 08:00 Resp 17 06/25/23 08:00 BP 136/66 06/25/23 08:00 Pulse Ox 96 06/25/23 08:00 FiO2 Intake & Output 06/24/23 06/25/23 06/25/23 18:59 06:59 18:59 Other: Voiding Method Toilet Bedside Commode Bedside Commode # Voids 3 1 1 # Bowel Movements 1 - Exam General appearance: alert, in no apparent distress Head exam: Present: atraumatic, normocephalic, normal inspection Eye exam: Present: normal appearance, PERRL, EOMI. Absent: scleral icterus, conjunctival injection, periorbital swelling ENT exam: Present: normal exam, normal oropharynx, mucous membranes moist Neck exam: Present: normal inspection, full ROM. Absent: tenderness, meningismus, lymphadenopathy Respiratory exam: Present: normal lung sounds bilaterally. Absent: respiratory distress, wheezes, rales, rhonchi, stridor, chest wall tenderness, accessory muscle use Cardiovascular Exam: Present: regular rate, normal rhythm, normal heart sounds. Absent: systolic murmur, diastolic murmur, rubs, gallop, clicks GI/Abdominal exam: Present: soft, normal bowel sounds. Absent: distended, tenderness, guarding, rebound, rigid Extremities exam: Present: other (Moderate left ankle tenderness, neurovascular intact bilateral lower extremities with full range of motion) Back exam: Present: normal inspection, full ROM, tenderness, paraspinal tenderness, vertebral tenderness. Absent: CVA tenderness (R), CVA tenderness (L) Neurological exam: Present: alert, oriented X3, CN II-XII intact, reflexes normal. Absent: motor sensory deficit Skin exam: Present: warm, dry, intact, normal color. Absent: rash - Labs CBC & Chem 7: 06/24/23 16:17 06/25/23 03:42 Labs: Abnormal Lab Results - Last 24 Hours (Table) 06/24/23 06/25/23 Range/Units 16:17 03:42 RBC 3.27 L (3.80-5.40) m/uL Hgb 9.6 L (11.4-16.0) gm/dL Hct 28.8 L (34.0-46.0) % Carbon Dioxide 20.0 L (21.6-31.8) mmol/L BUN 39.5 H (9.0-27.0) mg/dL Creatinine 3.0 H (0.6-1.5) mg/dL Est GFR (CKD-EPI) 14 L (>=60) Calcium 10.6 H (8.7-10.3) mg/dL TSH 8.210 H (0.350-5.500) UIU/ML Assessment and Plan Assessment: 1. Acute on chronic kidney disease stage IV - Slow IV fluid hydration with half-normal saline at rate of 75 mL an hour; we will monitor strict LAUREN's, daily weights, renal function and electrolytes; avoid nephrotoxins and hypotension 2. Dizziness/fall - Workup completed in ED including CT of the head, C-spine and x-ray of thoracic and lumbar spine is unremarkable - Patient will be admitted for further neurology evaluation 3. Weakness/generalized decline; consult PT/OT 4. Hypertension; patient takes amlodipine 5 mg daily, Coreg 25 mg twice a day and hydralazine 12.5 mg twice a day - We will hold Demadex 5 mg twice a day DVT prophylaxis; SCDs CODE STATUS; full code
[2023-06-25] MEDS: FOLIC ACID 1 MG TAB PO SCH (17:22)
[2023-06-26] MEDS: SODIUM CHLORIDE 0.9% 1,000 ML IV SCH ×2 (06:50→18:32)
[2023-06-26] MEDS: PANTOPRAZOLE 40 MG/10 ML VIAL IVP SCH ×2 (08:18→20:46)
[2023-06-26] MEDS: hydrALAZINE HCL 25 MG TAB PO SCH ×2 (08:47→20:46)
[2023-06-26] MEDS: amLODIPine 5 MG TAB PO SCH (08:47)
[2023-06-26] MEDS: FOLIC ACID 1 MG TAB PO SCH (08:47)
[2023-06-26] MEDS: carvediloL 12.5 MG TAB PO SCH ×2 (08:47→18:26)
[2023-06-26 09:13] LABS: BUN/Creat Ratio 12.92 Ratio (12.00-20.00); Blood Urea Nitrogen 33.6 mg/dL (9.0-27.0); Calcium 10.5 mg/dL (8.7-10.3); Carbon Dioxide 19.9 mmol/L (21.6-31.8); Chloride 106 mmol/L (96-109); Glucose 83 mg/dL (70-110); Sodium 137 mmol/L (135-145)
--- NOTE | 2023-06-26 09:39 | P.PN ---
Subjective Progress Note Date: 06/25/23 Patient was seen for a follow-up. Patient denies any headache. Patient still not able to walk. Patient tells me one more time about her event of a fall. She states that she was getting dressed to go to the dinner and remembers combing her hair when she had a sudden "spin" and she fell in the bathtub. She did not pass out and remembers all the sequence of events. She states that she was conscious all the time. She was baffled as to the cause Y she fell. She states she was able to get up as fast as she fell down. She denies any headache. She still feels sore all over. Patient states that she does not take any antiplatelet medication at home. Only Tylenol as needed. Objective - Vital Signs Vital signs: Vital Signs Temp 98.5 F 06/25/23 14:00 Pulse 62 06/25/23 14:00 Resp 16 06/25/23 14:00 BP 138/71 06/25/23 14:00 Pulse Ox 98 06/25/23 14:00 FiO2 Intake & Output 06/24/23 06/25/23 06/25/23 18:59 06:59 18:59 Weight 45.359 kg Other: Voiding Method Toilet Bedside Commode Bedside Commode # Voids 3 1 1 # Bowel Movements 1 - Exam Examination remains unchanged. Mentation normal. - Labs CBC & Chem 7: 06/24/23 16:17 06/26/23 06:13 Labs: Abnormal Lab Results - Last 24 Hours (Table) 06/24/23 06/25/23 Range/Units 16:17 03:42 RBC 3.27 L (3.80-5.40) m/uL Hgb 9.6 L (11.4-16.0) gm/dL Hct 28.8 L (34.0-46.0) % Carbon Dioxide 20.0 L (21.6-31.8) mmol/L BUN 39.5 H (9.0-27.0) mg/dL Creatinine 3.0 H (0.6-1.5) mg/dL Est GFR (CKD-EPI) 14 L (>=60) Calcium 10.6 H (8.7-10.3) mg/dL TSH 8.210 H (0.350-5.500) UIU/ML Assessment and Plan Assessment: * Status post fall 06/22/2023 (1 day prior to arrival) due to transient dizziness, unclear cause. Patient has been having very brief, transient dizzy spells sporadically for 3 days prior to the fall. Fall likely due to orthostatic hypotension. Patient's orthostatics positive. * History of accidental fall by tripping backwards about 3 weeks ago. Patient also had some upper respiratory infection 3 weeks ago, and she may have developed some peripheral vestibular dysfunction leading to these dizzy spells. * Abnormal CT head, with possibility of normal pressure hydrocephalus. * Acute onset of gait difficulty, not able to walk since the day after the fall (since day of admission). * Acute on chronic renal insufficiency, stage V chronic renal disease * Hypertension Plan: * Patient's orthostatics were positive. Supine blood pressure 136/60, sitting 120/65 and standing 84/44. Patient on IV hydration. Follow-up orthostatics after hydration. * Carotid Doppler revealed mild to moderate atherosclerotic change at the bifurcation but no hemodynamically significant stenosis on either side. Antegrade flow in both vertebral arteries. * B12 503, folate 6.6, MMA, B1, B6 level and TSH 8.210 which is elevated, but normal free T4 of 1.52. Will defer IM to address abnormal thyroid functions. We will start folic acid 1 mg daily. * PT OT evaluate gait. * Patient has developed myofascial pain from the fall. Anti-inflammatory medications contraindicated because of renal failure. * Patient's renal function started slightly improving today. Nephrology followi ng. Nephrology suspecting acute kidney injury likely prerenal with component of 80 and. * CT head revealed possibility of hydrocephalus. Patient did not have any gait difficulty prior to the fall. She denies any problems with memory functions or bladder control. We will follow clinically. If she has any persistent symptoms of NPH, then may need further workup including an MRI of the brain. Discussed with patient and her son in great detail. * Patient states that she is still not able to walk. We discussed about MRI to evaluate for possible NPH, rule out other abnormalities like CVA, but patient declined at this time and wants to think it "after Nickolas".
--- NOTE | 2023-06-26 11:45 | P.PN ---
Subjective Patient is seen for follow-up for acute kidney injury on chronic kidney disease. Orthostatic hypotension was noted. Renal function is improved with creatinine down to 2.6 Maintained on IV fluids. Objective - Vital Signs Vital signs: Vital Signs Temp 98.2 F 06/26/23 08:23 Pulse 71 06/26/23 08:23 Resp 18 06/26/23 08:23 BP 184/72 06/26/23 08:23 Pulse Ox 96 06/26/23 08:23 FiO2 Intake & Output 06/25/23 06/26/23 06/26/23 18:59 06:59 18:59 Weight 45.359 kg Other: Voiding Method Bedside Commode # Voids 3 2 # Bowel Movements 2 - Exam Patient is awake, comfortable, no acute distress Patient is on the commode in the bathroom Examination of lower extremities shows no evidence of edema PACKAGER HEAD exam grossly intact - Labs CBC & Chem 7: 06/24/23 16:17 06/26/23 06:13 Labs: Abnormal Lab Results - Last 24 Hours (Table) 06/25/23 06/26/23 Range/Units 03:42 06:13 Carbon Dioxide 20.0 L 19.9 L (21.6-31.8) mmol/L BUN 39.5 H 33.6 H (9.0-27.0) mg/dL Creatinine 3.0 H 2.6 H (0.6-1.5) mg/dL Est GFR (CKD-EPI) 14 L 17 L (>=60) Calcium 10.6 H 10.5 H (8.7-10.3) mg/dL TSH 8.210 H (0.350-5.500) UIU/ML Assessment and Plan Assessment: 1. Acute kidney injury most likely prerenal with possible component of ATN. Significant orthostatic hypotension noted. Currently maintained on IV fluids. UA is quite benign with 2+ protein and trace blood. No nephrotoxic agents noted. 2. Chronic kidney disease NKF stage IV secondary to nephrosclerosis with no plans for renal replacement therapy. 3. Hypertension with CK D stage IV 4. Status post fall and syncope. Neurology has been consulted. Plan: Okay for discharge from nephrology standpoint on decreased dose of antihypertensive medications Increase ambulation as tolerated.
--- NOTE | 2023-06-26 15:47 | P.PN ---
Subjective Progress Note Date: 06/26/23 87-year-old female with history of hypertension and chronic kidney disease stage IV presents emergency Department with chief complaint of fall. Patient states she was in the bathroom states that she moved and became dizzy and states that it causes her to fall yesterday. She had a loss conscious. She may have struck her head. She does complain of mid back pain, lower extremity pain. She states she has minimal pain at rest only with movement. She denies any bowel, bladder incontinence or retention or saddle anesthesias. She denies any blood thinners. She does have known kidney disease though she is not on dialysis yet. Patient's family is at bedside and reports that patient has been getting weaker lately and not able to care for self EKG Findings:: sinus rhythm with a rate of 65 NC 185/142 QT/QTc 443/454 X-ray of the thoracic and lumbar spine completed reveals no acute fracture; x- ray left ankle does not reveal any acute abnormality CT head and C-spine is negative for any acute intracranial hemorrhage or mass effect; no fractures 24 hour interval change 06/25/2023 Patient is seen and evaluated sitting up in bedside chair along with family members at bedside; wants to be discharged home Vital signs are reviewed; patient is positive for orthostatic hypotension; nephrology recommending to continue to maintain IV fluids; creatinine remained stable at 3.0 - Patient to be evaluated by PT/OT for discharge recommendations 06/26/2023 Patient seen and evaluated as comfortably in bed; wants to go home Vital signs are reviewed and remained stable Lab review shows improvement in creatinine down to 2.6 -- PT/OT consult with for recommendations for discharge planning; family has requested placement Objective - Vital Signs Vital signs: Vital Signs Temp 98.2 F 06/26/23 08:23 Pulse 71 06/26/23 08:23 Resp 18 06/26/23 08:23 BP 184/72 06/26/23 08:23 Pulse Ox 96 06/26/23 08:23 FiO2 Intake & Output 06/25/23 06/26/23 06/26/23 18:59 06:59 18:59 Weight 45.359 kg Other: Voiding Method Bedside Commode # Voids 3 2 # Bowel Movements 2 - Exam General appearance: alert, in no apparent distress Head exam: Present: atraumatic, normocephalic, normal inspection Eye exam: Present: normal appearance, PERRL, EOMI. Absent: scleral icterus, conjunctival injection, periorbital swelling ENT exam: Present: normal exam, normal oropharynx, mucous membranes moist Neck exam: Present: normal inspection, full ROM. Absent: tenderness, meningismus, lymphadenopathy Respiratory exam: Present: normal lung sounds bilaterally. Absent: respiratory distress, wheezes, rales, rhonchi, stridor, chest wall tenderness, accessory muscle use Cardiovascular Exam: Present: regular rate, normal rhythm, normal heart sounds. Absent: systolic murmur, diastolic murmur, rubs, gallop, clicks GI/Abdominal exam: Present: soft, normal bowel sounds. Absent: distended, tenderness, guarding, rebound, rigid Extremities exam: Present: other (Moderate left ankle tenderness, neurovascular intact bilateral lower extremities with full range of motion) Back exam: Present: normal inspection, full ROM, tenderness, paraspinal tenderness, vertebral tenderness. Absent: CVA tenderness (R), CVA tenderness (L) Neurological exam: Present: alert, oriented X3, CN II-XII intact, reflexes normal. Absent: motor sensory deficit Skin exam: Present: warm, dry, intact, normal color. Absent: rash - Labs CBC & Chem 7: 06/24/23 16:17 06/26/23 06:13 Labs: Abnormal Lab Results - Last 24 Hours (Table) 06/26/23 Range/Units 06:13 Carbon Dioxide 19.9 L (21.6-31.8) mmol/L BUN 33.6 H (9.0-27.0) mg/dL Creatinine 2.6 H (0.6-1.5) mg/dL Est GFR (CKD-EPI) 17 L (>=60) Calcium 10.5 H (8.7-10.3) mg/dL Assessment and Plan Assessment: 1. Acute on chronic kidney disease stage IV - Slow IV fluid hydration with half-normal saline at rate of 75 mL an hour; we will monitor strict LAUREN's, daily weights, renal function and electrolytes; avoid nephrotoxins and hypotension 2. Dizziness/fall - Workup completed in ED including CT of the head, C-spine and x-ray of thoracic and lumbar spine is unremarkable - Patient will be admitted for further neurology evaluation 3. Weakness/generalized decline; consult PT/OT 4. Hypertension; patient takes amlodipine 5 mg daily, Coreg 25 mg twice a day and hydralazine 12.5 mg twice a day - We will hold Demadex 5 mg twice a day DVT prophylaxis; SCDs CODE STATUS; full code
--- NOTE | 2023-06-26 17:25 | P.PN ---
Subjective Progress Note Date: 06/26/23 Patient was seen for a follow-up. Patient denies any headache. Patient continues to have hurting in arms and legs. Denies any pain in the cervical dressed sick or lumbar spine. She is able to move all joints, with no evidence of fracture. She just have severe myofascial pain. She denies any vertigo. Patient still not able to walk. Patient tells me one more time about her event of a fall. She states that she was getting dressed to go to the dinner and remembers combing her hair when she had a sudden "spin" and she fell in the bathtub. She did not pass out and remembers all the sequence of events. She states that she was conscious all the time. She was baffled as to the cause why she fell. She states she was able to get up as fast as she fell down. She denies any headache. She still feels sore all over. Patient states that she does not take any antiplatelet medication at home. Only Tylenol as needed. Objective - Vital Signs Vital signs: Vital Signs Temp 98.2 F 06/26/23 08:23 Pulse 71 06/26/23 08:23 Resp 18 06/26/23 08:23 BP 184/72 06/26/23 08:23 Pulse Ox 96 06/26/23 08:23 FiO2 Intake & Output 06/25/23 06/26/23 06/26/23 18:59 06:59 18:59 Intake Total 600 Balance 600 Weight 45.359 kg Intake: Intake, IV Titration 600 Amount Sodium Chloride 0.9% 1, 600 000 ml @ 75 mls/hr IV . [id number] [facility] Rx#:[id number] Other: Voiding Method Bedside Commode # Voids 3 2 # Bowel Movements 2 - Exam Examination remains unchanged. Mentation normal. - Labs CBC & Chem 7: 06/24/23 16:17 06/26/23 06:13 Labs: Abnormal Lab Results - Last 24 Hours (Table) 06/26/23 Range/Units 06:13 Carbon Dioxide 19.9 L (21.6-31.8) mmol/L BUN 33.6 H (9.0-27.0) mg/dL Creatinine 2.6 H (0.6-1.5) mg/dL Est GFR (CKD-EPI) 17 L (>=60) Calcium 10.5 H (8.7-10.3) mg/dL Assessment and Plan Assessment: * Status post fall 06/22/2023 (1 day prior to arrival) due to transient dizziness, unclear cause. Patient has been having very brief, transient dizzy spells sporadically for 3 days prior to the fall. Fall likely due to orthostatic hypotension. Patient's orthostatics positive. * History of accidental fall by tripping backwards about 3 weeks ago. Patient also had some upper respiratory infection 3 weeks ago, and she may have developed some peripheral vestibular dysfunction leading to these dizzy spells. * Abnormal CT head, with possibility of normal pressure hydrocephalus. * Orthostatic hypotension * Acute onset of gait difficulty, not able to walk since the day after the fall (since day of admission), probably due to significant myofascial pain from the fall. * Acute on chronic renal insufficiency, stage V chronic renal disease * Hypertension * Folate deficiency * Hypercalcemia Plan: * Patient's orthostatics were positive. Supine blood pressure 136/60, sitting 120/65 and standing 84/44. Patient on IV hydration. Follow-up orthostatics after hydration. * Patient's calcium has been running high at 10.5/10.3. May need further evaluation. * Carotid Doppler revealed mild to moderate atherosclerotic change at the bifurcation but no hemodynamically significant stenosis on either side. Antegrade flow in both vertebral arteries. * B12 503, folate 6.6, MMA, B1, B6 level and TSH 8.210 which is elevated, but normal free T4 of 1.52. Will defer IM to address abnormal thyroid functions. We will start folic acid 1 mg daily. * PT OT evaluate gait. * Patient has developed myofascial pain from the fall. Anti-inflammatory medications contraindicated because of renal failure. * Patient's renal function started slightly improving today. Nephrology following. Nephrology suspecting acute kidney injury likely prerenal with component of ATN. * CT head revealed possibility of hydrocephalus. Patient did not have any gait difficulty prior to the fall. She denies any problems with memory functions or bladder control. We will follow clinically. If she has any persistent symptoms of NPH, then may need further workup including an MRI of the brain. Discussed with patient and her son in great detail. She still wants to hold off on MRI.
[2023-06-27] MEDS: carvediloL 12.5 MG TAB PO SCH ×2 (08:25→16:19)
[2023-06-27] MEDS: amLODIPine 5 MG TAB PO SCH (08:25)
[2023-06-27] MEDS: hydrALAZINE HCL 25 MG TAB PO SCH ×2 (08:25→20:17)
[2023-06-27] MEDS: FOLIC ACID 1 MG TAB PO SCH (08:25)
[2023-06-27] MEDS: PANTOPRAZOLE 40 MG/10 ML VIAL IVP SCH ×2 (08:30→20:19)
[2023-06-27 09:25] LABS: % Iron Saturation 12.31 (12.00-45.00); BUN/Creat Ratio 12.23 Ratio (12.00-20.00); Blood Urea Nitrogen 31.8 mg/dL (9.0-27.0); Calcium 10.4 mg/dL (8.7-10.3); Chloride 107 mmol/L (96-109); Glucose 82 mg/dL (70-110); Iron 24 UG/DL (50-170); Potassium 3.7 mmol/L (3.5-5.5); Sodium 138 mmol/L (135-145); Total Iron Binding Capacity 195 UG/DL (228-460)
[2023-06-27 09:35] LABS: Basophils # (A) 0.08 X 10*3/uL (0.00-0.10); Eosinophils % (A) 6.4 %; HGB 8.8 g/dL (12.0-15.0); Lymphocytes # (A) 1.25 X 10*3/uL (0.90-5.00); Lymphocytes % (A) 16.1 %; MCH 27.9 pg (27.0-32.0); MCHC 32.6 g/dL (32.0-37.0); MCV 85.7 FL (80.0-97.0); Mean Platelet Volume 10.6 FL (9.5-12.2); Monocytes # (A) 0.87 X 10*3/uL (0.20-1.00); Monocytes % (A) 11.2 %; NRBC Per 100 WBC 0 X 10*3/uL (0.00-0.01); Neutrophils # (A) 5.05 X 10*3/uL (1.80-7.70); Neutrophils % (A) 65.2 %; Platelet Count 312 X 10*3/uL (140-440); RBC 3.15 X 10*6/uL (4.10-5.20); RDW 13.5 % (11.5-14.5); WBC 7.76 X 10*3/uL (4.50-10.00)
[2023-06-27] MEDS: SENNOSIDES-DOCUSATE SODIUM 1 EACH TAB PO SCH ×2 (10:48→20:21)
--- NOTE | 2023-06-27 12:25 | P.PN ---
Subjective 87-year-old female with history of hypertension and chronic kidney disease stage IV presents emergency Department with chief complaint of fall. Patient states she was in the bathroom states that she moved and became dizzy and states that it causes her to fall yesterday. She had a loss conscious. She may have struck her head. She does complain of mid back pain, lower extremity pain. She states she has minimal pain at rest only with movement. She denies any bowel, bladder incontinence or retention or saddle anesthesias. She denies any blood thinners. She does have known kidney disease though she is not on dialysis yet. Patient's family is at bedside and reports that patient has been getting weaker lately and not able to care for self EKG Findings:: sinus rhythm with a rate of 65 [place] 185/142 QT/QTc 443/454 X-ray of the thoracic and lumbar spine completed reveals no acute fracture; x- ray left ankle does not reveal any acute abnormality CT head and C-spine is negative for any acute intracranial hemorrhage or mass effect; no fractures 24 hour interval change 06/25/2023 Patient is seen and evaluated sitting up in bedside chair along with family members at bedside; wants to be discharged home Vital signs are reviewed; patient is positive for orthostatic hypotension; nephrology recommending to continue to maintain IV fluids; creatinine remained stable at 3.0 - Patient to be evaluated by PT/OT for discharge recommendations 06/26/2023 Patient seen and evaluated as comfortably in bed; wants to go home Vital signs are reviewed and remained stable Lab review shows improvement in creatinine down to 2.6 -- PT/OT consult with for recommendations for discharge planning; family has requested placement Resume the care of the patient today 06/27/2023 Patient originally presents because of low back pain 04/11 on admission after she fell at home. Patient currently awake alert, she is doing well, she is working in order with no difficulty, she is sitting in chair comfortably, no significant back pain. No dizziness. She has some postoperative orthostatic vitals but patient received IV fluid and today she is as symptomatic. She denies chest pain or dyspnea. No evidence of blood per rectum or bleeding from anywhere. She is complaining of from constipation, last bowel movement was 4 days ago. Physical therapy recommended home health care other than subacute rehab. Anemia workup showing vitamin B12 500, folate 6.6. This been replaced. Iron study showing anemia of chronic disease with possible elements of low iron therefore we consulted hematology service. Patient currently on IV Protonix We'll discharge in 24-48 hours Objective - Vital Signs Vital signs: Vital Signs Temp 99.0 F 06/27/23 07:00 Pulse 71 06/27/23 07:00 Resp 18 06/27/23 07:00 BP 177/75 06/27/23 07:00 Pulse Ox 96 06/27/23 07:00 FiO2 Intake & Output 06/26/23 06/27/23 06/27/23 18:59 06:59 18:59 Intake Total 600 500 Output Total 554 50 Balance 46 500 -50 Intake: IV 500 0.45 500 Intake, IV Titration 600 Amount Sodium Chloride 0.9% 1, 600 000 ml @ 75 mls/hr IV . [id number] [facility] Rx#:[id number] Output: Urine 554 50 Other: Voiding Method Bedside Commode # Voids 2 # Bowel Movements 1 - Exam GENERAL: The patient is alert and oriented x3, not in any acute distress. Well developed, well nourished. HEENT: Pupils are round and equally reacting to light. EOMI. No scleral icterus. No conjunctival pallor. Normocephalic, atraumatic. No pharyngeal erythema. No thyromegaly. CARDIOVASCULAR: S1 and S2 present. No murmurs, rubs, or gallops. PULMONARY: Chest is clear to auscultation, no wheezing , no crackles. ABDOMEN: Soft, nontender, nondistended, normoactive bowel sounds. No palpable organomegaly. MUSCULOSKELETAL: No joint swelling or deformity. EXTREMITIES: No cyanosis, clubbing, or pedal edema. NEUROLOGICAL: Gross neurological examination did not reveal any focal deficits. SKIN: No rashes. no petechiae. - Labs CBC & Chem 7: 06/27/23 05:56 06/27/23 05:56 Labs: Abnormal Lab Results - Last 24 Hours (Table) 06/27/23 06/27/23 Range/Units 05:56 05:56 RBC 3.15 L (4.10-5.20) X 10*6/uL Hgb 8.8 L (12.0-15.0) g/dL Hct 27.0 L (37.2-46.3) % Eosinophils # 0.50 H (0.04-0.35) X 10*3/uL Carbon Dioxide 20.0 L (21.6-31.8) mmol/L BUN 31.8 H (9.0-27.0) mg/dL Creatinine 2.6 H (0.6-1.5) mg/dL Est GFR (CKD-EPI) 17 L (>=60) Calcium 10.4 H (8.7-10.3) mg/dL Iron 24 L (50-170) UG/DL TIBC 195 L (228-460) UG/DL Transferrin 139.0 L (204.0-354.0) mg/dL Ferritin 512.0 H (10.0-291.0) ng/mL Assessment and Plan Assessment: 1. Acute on chronic kidney disease stage IV, improving - Nephrology service on the case ; avoid nephrotoxins and hypotension 2. Dizziness/fall - Workup completed in ED including CT of the head, C-spine and x-ray of thoracic and lumbar spine is unremarkable - Patient will be admitted for further neurology evaluation - Physical therapist recommended home health care 3. Weakness/generalized decline; consult PT/OT home health care upon discharge - 4. Hypertension; patient takes amlodipine 5 mg daily, Coreg 25 mg twice a day and hydralazine 12.5 mg twice a day - We will hold Demadex 5 mg twice a day DVT prophylaxis; SCDs CODE STATUS; full code
--- NOTE | 2023-06-27 12:35 | P.PN ---
Subjective Patient is seen for follow-up for acute kidney injury on chronic kidney disease. Orthostatic hypotension was noted. Renal function is improved with creatinine down to 2.6 Status post IV fluids. Objective - Vital Signs Vital signs: Vital Signs Temp 99.0 F 06/27/23 07:00 Pulse 71 06/27/23 07:00 Resp 18 06/27/23 07:00 BP 177/75 06/27/23 07:00 Pulse Ox 96 06/27/23 07:00 FiO2 Intake & Output 06/26/23 06/27/23 06/27/23 18:59 06:59 18:59 Intake Total 600 500 Output Total 554 50 Balance 46 500 -50 Intake: IV 500 0.45 500 Intake, IV Titration 600 Amount Sodium Chloride 0.9% 1, 600 000 ml @ 75 mls/hr IV . [id number] [facility] Rx#:[id number] Output: Urine 554 50 Other: Voiding Method Bedside Commode # Voids 2 # Bowel Movements 1 - Exam Patient is awake, comfortable, no acute distress Examination of the heart S1 and S2 Examination of the lungs bilateral breath sounds are heard Abdomen is soft nontender Examination of lower extremities shows no evidence of edema [employer]WE[employer]ANGER exam grossly intact - Labs CBC & Chem 7: 06/27/23 05:56 06/27/23 05:56 Labs: Abnormal Lab Results - Last 24 Hours (Table) 06/27/23 06/27/23 Range/Units 05:56 05:56 RBC 3.15 L (4.10-5.20) X 10*6/uL Hgb 8.8 L (12.0-15.0) g/dL Hct 27.0 L (37.2-46.3) % Eosinophils # 0.50 H (0.04-0.35) X 10*3/uL Carbon Dioxide 20.0 L (21.6-31.8) mmol/L BUN 31.8 H (9.0-27.0) mg/dL Creatinine 2.6 H (0.6-1.5) mg/dL Est GFR (CKD-EPI) 17 L (>=60) Calcium 10.4 H (8.7-10.3) mg/dL Iron 24 L (50-170) UG/DL TIBC 195 L (228-460) UG/DL Transferrin 139.0 L (204.0-354.0) mg/dL Ferritin 512.0 H (10.0-291.0) ng/mL Assessment and Plan Assessment: 1. Acute kidney injury most likely prerenal with possible component of ATN. Significant orthostatic hypotension noted. Currently maintained on IV fluids. UA is quite benign with 2+ protein and trace blood. No nephrotoxic agents noted. 2. Chronic kidney disease NKF stage IV secondary to nephrosclerosis with no plans for renal replacement therapy. 3. Hypertension with CK D stage IV 4. Status post fall and syncope. Neurology has been consulted. Plan: Okay for discharge from nephrology standpoint on decreased dose of antihypertensive medications Increase ambulation as tolerated.
[2023-06-27] MEDS: SODIUM FERRIC GLUCONAT-SUCROSE 125 MG in SODIUM CHLORIDE 0.9% 100 ML IVPB SCH (16:19)
--- NOTE | 2023-06-27 23:59 | P.PN ---
Subjective Progress Note Date: 06/27/23 Patient was seen for a follow-up. Patient denies any headache. Patient continues to have hurting in arms and legs. Denies any pain in the cervical or lumbar spine. She is able to move all joints, with no evidence of fracture. She just have severe myofascial pain. She denies any vertigo. The nursing staff was also present. Patient was able to walk to the bathroom with a walker, but cannot walk by herself. She is a high fall risk. Patient says that she does use walker around her home when needed for last 7 years. Telemetry monitoring showing sinus rhythm, with sinus bradycardia in the 50s. Patient tells me one more time about her event of a fall. She states that she was getting dressed to go to the dinner and remembers combing her hair when she had a sudden "spin" and she fell in the bathtub. She did not pass out and remembers all the sequence of events. She states that she was conscious all the time. She was baffled as to the cause why she fell. She states she was able to get up as fast as she fell down. She denies any headache. She still feels sore all over. Patient states that she does not take any antiplatelet medication at home. Only Tylenol as needed. Objective - Vital Signs Vital signs: Vital Signs Temp 97.9 F 06/27/23 20:00 Pulse 67 06/27/23 20:00 Resp 15 06/27/23 20:00 BP 114/63 06/27/23 20:00 Pulse Ox 97 06/27/23 20:00 FiO2 Intake & Output 06/27/23 06/27/23 06/28/23 06:59 18:59 06:59 Intake Total 500 Output Total 50 Balance 500 -50 Intake: IV 500 0.45 500 Output: Urine 50 Other: Voiding Method Bedside Commode # Voids 2 4 # Bowel Movements 5 - Exam Examination remains unchanged. Mentation normal. Muscle strength is normal, but she has some giveaway weakness because of myofascial pain. No ataxia. Sensations equal. - Labs CBC & Chem 7: 06/27/23 05:56 06/27/23 05:56 Labs: Abnormal Lab Results - Last 24 Hours (Table) 06/27/23 06/27/23 Range/Units 05:56 05:56 RBC 3.15 L (4.10-5.20) X 10*6/uL Hgb 8.8 L (12.0-15.0) g/dL Hct 27.0 L (37.2-46.3) % Eosinophils # 0.50 H (0.04-0.35) X 10*3/uL Carbon Dioxide 20.0 L (21.6-31.8) mmol/L BUN 31.8 H (9.0-27.0) mg/dL Creatinine 2.6 H (0.6-1.5) mg/dL Est GFR (CKD-EPI) 17 L (>=60) Calcium 10.4 H (8.7-10.3) mg/dL Iron 24 L (50-170) UG/DL TIBC 195 L (228-460) UG/DL Transferrin 139.0 L (204.0-354.0) mg/dL Ferritin 512.0 H (10.0-291.0) ng/mL Assessment and Plan Assessment: * Status post fall 06/22/2023 (1 day prior to arrival) due to transient dizziness, unclear cause. Patient has been having very brief, transient dizzy spells sporadically for 3 days prior to the fall. Fall likely due to orth ostatic hypotension. Patient's orthostatics positive. * History of accidental fall by tripping backwards about 3 weeks ago. Patient also had some upper respiratory infection 3 weeks ago, and she may have developed some peripheral vestibular dysfunction leading to these dizzy spells. * Abnormal CT head, with possibility of normal pressure hydrocephalus. * Orthostatic hypotension * Acute onset of gait difficulty, not able to walk since the day after the fall (since day of admission), probably due to significant myofascial pain from the fall. * Acute on chronic renal insufficiency, stage V chronic renal disease * Hypertension * Folate deficiency * Hypercalcemia Plan: * Patient's orthostatics were positive. Repeat orthostatics showed Supine blood pressure 176/75, sitting 174/76 and standing 156/67, still slightly abnormal. Patient has significant hypertension as well. Uncertain if she would need Florinef because of elevated blood pressure. Consider tilt table test. Consider cardiology evaluation. * Check 2-D echo. * Patient's calcium has been running high at 10.5/10.3. May need further evaluation. nephrology on board. Perhaps needed to renal insufficiency. * Carotid Doppler revealed mild to moderate atherosclerotic change at the bifurcation but no hemodynamically significant stenosis on either side. An tegrade flow in both vertebral arteries. * B12 503, folate 6.6, MMA, B1, B6 level and TSH 8.210 which is elevated, but normal free T4 of 1.52. Will defer IM to address abnormal thyroid functions. We will start folic acid 1 mg daily. * PT OT evaluate gait. * Patient has developed myofascial pain from the fall. Anti-inflammatory medications contraindicated because of renal failure. * Patient's renal function started slightly improving today. Nephrology following. Nephrology suspecting acute kidney injury likely prerenal with component of ATN. * CT head revealed possibility of hydrocephalus. Patient did not have any gait difficulty prior to the fall. She denies any problems with memory functions or bladder control. We will follow clinically. If she has any persistent symptoms of NPH, then may need further workup including an MRI of the brain. Discussed with patient and her son in great detail. * Patient declining MRI. Patient's nurse was also present. * Dr. Robin Knott starting neurology service from the morning.
[2023-06-28] MEDS ORDERED: hydrALAZINE HCL 25 MG TAB PO STA (01:54)
[2023-06-28] MEDS: carvediloL 12.5 MG TAB PO SCH ×2 (06:44→17:28)
[2023-06-28 08:34] LABS: HCT 28.6 % (37.2-46.3); HGB 9.3 g/dL (12.0-15.0); MCH 27.9 pg (27.0-32.0); MCHC 32.5 g/dL (32.0-37.0); MCV 85.9 FL (80.0-97.0); Mean Platelet Volume 10.3 FL (9.5-12.2); NRBC Per 100 WBC 0 X 10*3/uL (0.00-0.01); Platelet Count 316 X 10*3/uL (140-440); RBC 3.33 X 10*6/uL (4.10-5.20); RDW 13.7 % (11.5-14.5); WBC 7.94 X 10*3/uL (4.50-10.00)
[2023-06-28] MEDS ORDERED: hydrALAZINE HCL 50 MG TAB PO SCH (09:00)
[2023-06-28] MEDS: FOLIC ACID 1 MG TAB PO SCH (11:04)
[2023-06-28] MEDS: amLODIPine 5 MG TAB PO SCH (11:04)
[2023-06-28] MEDS: PANTOPRAZOLE 40 MG/10 ML VIAL IVP SCH ×2 (11:05→21:01)
--- NOTE | 2023-06-28 11:35 | P.PN ---
Subjective Patient is seen for follow-up for acute kidney injury on chronic kidney disease. Orthostatic hypotension was noted. Renal function is improved with creatinine down to 2.6 Status post IV fluids. Objective - Vital Signs Vital signs: Vital Signs Temp 97.9 F 06/28/23 06:55 Pulse 73 06/28/23 06:55 Resp 20 06/28/23 06:55 BP 173/80 06/28/23 06:55 Pulse Ox 93 L 06/28/23 06:55 FiO2 Intake & Output 06/27/23 06/28/23 06/28/23 18:59 06:59 18:59 Output Total 50 Balance -50 Output: Urine 50 Other: # Voids 4 4 1 # Bowel Movements 5 - Exam Patient is awake, comfortable, no acute distress Examination of the heart S1 and S2 Examination of the lungs bilateral breath sounds are heard Abdomen is soft nontender Examination of lower extremities shows no evidence of edema MECH[employer] LEAD exam grossly intact - Labs CBC & Chem 7: 06/28/23 05:25 06/27/23 05:56 Labs: Abnormal Lab Results - Last 24 Hours (Table) 06/25/23 06/28/23 Range/Units 03:42 05:25 RBC 3.33 L (4.10-5.20) X 10*6/uL Hgb 9.3 L (12.0-15.0) g/dL Hct 28.6 L (37.2-46.3) % Methylmalonic Acid 0.44 H (<0.40) umol/L Assessment and Plan Assessment: 1. Acute kidney injury most likely prerenal with possible component of ATN. Significant orthostatic hypotension noted. Currently maintained on IV fluids. UA is quite benign with 2+ protein and trace blood. No nephrotoxic agents noted . 2. Chronic kidney disease NKF stage IV secondary to nephrosclerosis with no plans for renal replacement therapy. 3. Hypertension with CK D stage IV 4. Status post fall and syncope. Neurology has been consulted. 5. Borderline hypercalcemia associated with primary hyperparathyroidism. Serum calcium is stable. Plan: Okay for discharge from nephrology standpoint on decreased dose of antihypertensive medications Increase ambulation as tolerated.
[2023-06-28] MEDS: SODIUM FERRIC GLUCONAT-SUCROSE 125 MG in SODIUM CHLORIDE 0.9% 100 ML IVPB SCH (12:00)
[2023-06-28] MEDS: SENNOSIDES-DOCUSATE SODIUM 1 EACH TAB PO SCH ×2 (12:05→21:02)
--- NOTE | 2023-06-28 14:36 | P.CONS ---
History of Present Illness - Reason for Consult Consult date: 06/28/23 anemia Requesting physician: Payam E Sheet - Chief Complaint syncope - History of Present Illness Patient is an 87 year old female with a significant history of HTN and CKD. Consult was placed for anemia. Patient presented to the ER for syncopal episode and fall. Patient reports she was in the bathroom doing her make-up at which time she became lightheaded and then remembers waking up on the floor. Patient denies chest pain and shortness of breath. Denies previous history of syncopal episodes. Denies melena and blood in stool. Last colonoscopy was a cpl years ago which was normal per pt. Upon admission hemoglobin was noted at 11.3, which is her baseline. Last couple days hemoglobin has been began to drop, currently at 9.3. With MCV 85.9. Platelets 316,000. Creatinine was noted at 3.0 upon admission, improving, today at 2.6. Nephrology is following. Iron studies revealed iron saturation 12.3%, ferritin 512. Vitamin B12 503, MMA mildly elevated at 0.44, folate 6.6. IV iron has been ordered. Review of Systems 10 point ROS is negative except as stated in the HPI Past Medical History Past Medical History: Hypertension Additional Past Medical History / Comment(s): kidney failure History of Any Multi-Drug Resistant Organisms: None Reported Past Surgical History: Joint Replacement Additional Past Surgical History / Comment(s): knees replaced Past Psychological History: No Psychological Hx Reported Smoking Status: Former smoker Past Alcohol Use History: Occasional Past Drug Use History: None Reported Medications and Allergies Home Medications Medication Instructions Recorded Confirmed Type Torsemide [Demadex] 5 mg PO BID 04/01/19 06/23/23 History carvediloL [Coreg] 25 mg PO BID 05/20/19 06/23/23 History Albuterol Sulfate [Albuterol 2 puff PO RT-Q4H PRN 06/23/23 06/23/23 History Sulfate Hfa] amLODIPine [Norvasc] 5 mg PO DAILY 06/23/23 06/23/23 History hydrALAZINE HCL 12.5 mg PO BID 06/23/23 06/23/23 History Allergies Allergy/AdvReac Type Severity Reaction Status Date / Time No Known Allergies Allergy Verified 06/23/23 13:49 Physical Exam Vitals: Vital Signs Temp Pulse Resp BP Pulse Ox 06/28/23 06:55 97.9 F 73 20 173/80 93 L 06/28/23 02:00 97.6 F 71 18 174/71 96 06/27/23 20:00 97.9 F 67 15 114/63 97 Intake and Output 06/27/23 06/28/23 06/28/23 22:59 06:59 14:59 Other: # Voids 4 4 1 # Bowel Movements 5 - Constitutional General appearance: average body habitus, no acute distress - EENT Eyes: anicteric sclerae, EOMI ENT: hearing grossly normal - Respiratory Respiratory: bilateral: CTA - Cardiovascular Rhythm: regular Heart sounds: normal: S1, S2 - Gastrointestinal General gastrointestinal: soft, no tenderness - Integumentary Integumentary: no cyanotic - Neurologic grossly intact - Musculoskeletal Musculoskeletal: strength equal bilaterally - Psychiatric Psychiatric: A&O x's 3 Results CBC & Chem 7: 06/28/23 05:25 06/27/23 05:56 Labs: Abnormal Lab Results - Last 24 Hours (Table) 06/25/23 06/28/23 Range/Units 03:42 05:25 RBC 3.33 L (4.10-5.20) X 10*6/uL Hgb 9.3 L (12.0-15.0) g/dL Hct 28.6 L (37.2-46.3) % Methylmalonic Acid 0.44 H (<0.40) umol/L Assessment and Plan (1) Dizziness Current Visit: Yes Status: Acute Priority: High Code(s): R42 - DIZZINESS AND GIDDINESS SNOMED Code(s): 337625439 (2) Anemia Current Visit: Yes Status: Acute Priority: Medium Code(s): D64.9 - ANEMIA, UNSPECIFIED SNOMED Code(s): 452881753 Plan: Normocytic anemia: -History of CKD. Creatinine was noted at 3.0 upon admission, improving, today at 2.6. Reports she was on oral iron approx 40 years ago. Denies melena and blood in stool. Last colonoscopy was a cpl years ago which was normal per pt. Upon admission hemoglobin was noted at 11.3, which is her baseline. Last couple days hemoglobin has been began to drop, currently at 9.3. With MCV 85.9. Platelets 316,000. -Iron studies revealed iron saturation 12.3%, ferritin 512. Vitamin B12 503, MMA mildly elevated at 0.44, folate 6.6. IV iron abd oral folic acid has been ordered. -Anemia more likely secondary to CKD, anemia of inflammation, and inability to utilize iron stores -EPO ordered -Will continue to monitor. Please transfuse for hgb less than 7 or if symptomatic
--- NOTE | 2023-06-28 16:46 | CDI ---
Documentation Clarification Form Date: From: Zoya Hubbard Phone: [phone] Admit Date: 06/23/2023 02:00:00 PM Patient Name: Esha Watson Visit Number: [id number] Discharge Date: ATTENTION: The Clinical Documentation Specialists (CDI) and [facility] Coding Staff appreciate your assistance in clarifying documentation. Please respond to the clarification below the line at the bottom and electronically sign. The CDI & [facility] Coding staff will review the response and follow-up if needed. Please note: Queries are made part of the Legal Health Record. If you have any questions, please contact the author of this message via ITS. Dr. Jose Vanegas The Registered Dietitian assessment on 06/28 indicates this patient meets criteria for Severe Malnutrition. Based on this information and the findings below, is there an additional diagnosis that is clinically appropriate for this patient? History/Risk Factors: "87-year-old female with history of hypertension and chronic kidney disease stage IV presents emergency Department with chief complaint of fall. Patient states she was in the bathroom states that she moved and became dizzy and states that it causes her to fall yesterday." - Per Medical H&P on 06/23 Clinical Indicators: Per Nutrition Note/Assessment on 06/28 "poor intake, advanced age, muscle wasting to temporal/orbial region" "Pt is eating ~44% of her meals." Current BMI: 18.3kg/m2 Treatment: "RD instructed her on how to order meals from the kitchen. She also noted that she only likes chocolate ensure - RD changed supplement order to reflect this." "Ensure compact TID" - Per Nutrition Note / Assessment on 06/28 Is there an additional diagnosis that is clinically appropriate for this patient? [### ] Severe Protein-Calorie Malnutrition (PCM) [ ] PCM of other degree, please specify [ ] No additional diagnosis/Not clinically significant [ ] Other condition, please specify [ ] Unable to Determine MTDD
[2023-06-28] MEDS: hydrALAZINE HCL 25 MG TAB PO SCH (21:01)
[2023-06-28] MEDS ORDERED: CYANOCOBALAMIN 1,000 MCG/ML 1 ML VIAL IM ONE (22:21)
--- NOTE | 2023-06-28 22:23 | P.PN ---
Subjective 87-year-old female with history of hypertension and chronic kidney disease stage IV presents emergency Department with chief complaint of fall. Patient states she was in the bathroom states that she moved and became dizzy and states that it causes her to fall yesterday. She had a loss conscious. She may have struck her head. She does complain of mid back pain, lower extremity pain. She states she has minimal pain at rest only with movement. She denies any bowel, bladder incontinence or retention or saddle anesthesias. She denies any blood thinners. She does have known kidney disease though she is not on dialysis yet. Patient's family is at bedside and reports that patient has been getting weaker lately and not able to care for self EKG Findings:: sinus rhythm with a rate of 65 AK 185/142 QT/QTc 443/454 X-ray of the thoracic and lumbar spine completed reveals no acute fracture; x- ray left ankle does not reveal any acute abnormality CT head and C-spine is negative for any acute intracranial hemorrhage or mass effect; no fractures 24 hour interval change 06/25/2023 Patient is seen and evaluated sitting up in bedside chair along with family members at bedside; wants to be discharged home Vital signs are reviewed; patient is positive for orthostatic hypotension; nephrology recommending to continue to maintain IV fluids; creatinine remained stable at 3.0 - Patient to be evaluated by PT/OT for discharge recommendations 06/26/2023 Patient seen and evaluated as comfortably in bed; wants to go home Vital signs are reviewed and remained stable Lab review shows improvement in creatinine down to 2.6 -- PT/OT consult with for recommendations for discharge planning; family has requested placement Resume the care of the patient today 06/27/2023 Patient originally presents because of low back pain 04/11 on admission after she fell at home. Patient currently awake alert, she is doing well, she is working in order with no difficulty, she is sitting in chair comfortably, no significant back pain. No dizziness. She has some postoperative orthostatic vitals but patient received IV fluid and today she is as symptomatic. She denies chest pain or dyspnea. No evidence of blood per rectum or bleeding from anywhere. She is complaining of from constipation, last bowel movement was 4 days ago. Physical therapy recommended home health care other than subacute rehab. Anemia workup showing vitamin B12 500, folate 6.6. This been replaced. Iron study showing anemia of chronic disease with possible elements of low iron therefore we consulted hematology service. Patient currently on IV Protonix We'll discharge in 24-48 hours 06/28/2023 Patient clinically doing well, less dizziness, no chest pain no dyspnea, no new complaints Orthostatic hypotension better Hydralazine added for better blood pressure control Neurology service recommended echocardiogram and cardiology consult which are ordered and pending for now The patient neurologically is therefore discharged. Family requested psychiatric consult Hematology sympathetic is appreciated, patient has anemia of chronic disease as seen above PT/OT recommended home health care which is ordered Objective - Vital Signs Vital signs: Vital Signs Temp 98.4 F 06/28/23 13:39 Pulse 66 06/28/23 13:39 Resp 19 06/28/23 13:39 BP 156/65 06/28/23 13:39 Pulse Ox 95 06/28/23 13:39 FiO2 Intake & Output 06/27/23 06/28/23 06/28/23 18:59 06:59 18:59 Output Total 50 Balance -50 Weight 45.359 kg Output: Urine 50 Other: # Voids 4 4 1 # Bowel Movements 5 - Exam GENERAL: The patient is alert and oriented x3, not in any acute distress. Well developed, well nourished. HEENT: Pupils are round and equally reacting to light. EOMI. No scleral icterus. No conjunctival pallor. Normocephalic, atraumatic. No pharyngeal erythema. No thyromegaly. CARDIOVASCULAR: S1 and S2 present. No murmurs, rubs, or gallops. PULMONARY: Chest is clear to auscultation, no wheezing , no crackles. ABDOMEN: Soft, nontender, nondistended, normoactive bowel sounds. No palpable organomegaly. MUSCULOSKELETAL: No joint swelling or deformity. EXTREMITIES: No cyanosis, clubbing, or pedal edema. NEUROLOGICAL: Gross neurological examination did not reveal any focal deficits. SKIN: No rashes. no petechiae. - Labs CBC & Chem 7: 06/28/23 05:25 06/27/23 05:56 Labs: Abnormal Lab Results - Last 24 Hours (Table) 06/25/23 06/28/23 Range/Units 03:42 05:25 RBC 3.33 L (4.10-5.20) X 10*6/uL Hgb 9.3 L (12.0-15.0) g/dL Hct 28.6 L (37.2-46.3) % Methylmalonic Acid 0.44 H (<0.40) umol/L Assessment and Plan Assessment: 1. Acute on chronic kidney disease stage IV, improving - Nephrology service on the case ; avoid nephrotoxins and hypotension 2. Dizziness/fall - Workup completed in ED including CT of the head, C-spine and x-ray of thoracic and lumbar spine is unremarkable - Patient will be admitted for further neurology evaluation - Physical therapist recommended home health care 3. Weakness/generalized decline; consult PT/OT home health care upon discharge - 4. Hypertension; patient takes amlodipine 5 mg daily, Coreg 25 mg twice a day and hydralazine 12.5 mg twice a day - We will hold Demadex 5 mg twice a day DVT prophylaxis; SCDs CODE STATUS; full code
[2023-06-29] MEDS: carvediloL 12.5 MG TAB PO SCH (06:57)
[2023-06-29 08:07] VITALS: BP 169/69; PULSE 75; RESP 21; TEMP 98.7
[2023-06-29] MEDS ORDERED: CYANOCOBALAMIN 1,000 MCG/ML 1 ML VIAL IM SCH (09:00)
[2023-06-29] MEDS: SODIUM FERRIC GLUCONAT-SUCROSE 125 MG in SODIUM CHLORIDE 0.9% 100 ML IVPB SCH (09:16)
[2023-06-29] MEDS: hydrALAZINE HCL 25 MG TAB PO SCH (09:18)
[2023-06-29] MEDS: PANTOPRAZOLE 40 MG/10 ML VIAL IVP SCH (09:18)
[2023-06-29] MEDS: SENNOSIDES-DOCUSATE SODIUM 1 EACH TAB PO SCH (09:19)
[2023-06-29] MEDS: FOLIC ACID 1 MG TAB PO SCH (09:19)
[2023-06-29] MEDS: amLODIPine 5 MG TAB PO SCH (09:19)
--- NOTE | 2023-06-29 10:13 | CA ---
Transthoracic Echo Report Name: Esha Watson Age: 87 Gender: F : 1935 Exam Date: 06/28/2023 11:24 Exam Location: [place] [facility] Ht (in): 62 Wt (lb): 100 Ordering Physician: Jaimie Fields MD Attending/Referring Phys: Landscaping Manager Lj Cordoba Procedure CPT: Indications: syncope, dizziness Cardiac Hx: Technical Quality: Fair Contrast 1: Total Dose (mL): Contrast 2: Total Dose (mL): MEASUREMENTS (Male / Female) Normal Values 2D ECHO LV Diastolic Diameter PLAX 4.5 cm 4.2 - 5.9 / 3.9 - 5.3 cm LV Systolic Diameter PLAX 3.0 cm IVS Diastolic Thickness 1.2 cm 0.6 - 1.0 / 0.6 - 0.9 cm LVPW Diastolic Thickness 1.1 cm 0.6 - 1.0 / 0.6 - 0.9 cm LV Relative Wall Thickness 0.5 RV Internal Dim ED PLAX 2.3 cm LVOT Diameter 1.8 cm Aortic Root Diameter 2.3 cm LA Systolic Diameter LX 2.7 cm 3.0 - 4.0 / 2.7 - 3.8 cm LV Diastolic Volume MOD BP 44.3 cm??? 67 - 155 / 56 - 104 cm??? LV Systolic Volume MOD BP 18.6 cm??? 22 - 58 / 19 - 49 cm??? LV Ejection Fraction MOD BP 58.1 % >= 55 % LV Diastolic Volume MOD 4C 37.0 cm??? LV Systolic Volume MOD 4C 13.5 cm??? LV Ejection Fraction MOD 4C 63.4 % LV Diastolic Length 4C 6.6 cm LV Systolic Length 4C 5.5 cm LV Diastolic Volume MOD 2C 52.7 cm??? LV Systolic Volume MOD 2C 23.3 cm??? LV Ejection Fraction MOD 2C 55.8 % LV Diastolic Length 2C 6.7 cm LV Systolic Length 2C 6.2 cm LA Volume 32.8 cm??? 18 - 58 / 22 - 52 cm??? LA Volume Index 23.4 cm???/m??? 16 - 28 cm???/m??? DOPPLER AV Peak Velocity 199.2 cm/s AV Peak Gradient 15.9 mmHg AV Mean Velocity 138.2 cm/s AV Mean Gradient 8.8 mmHg AV Velocity Time Integral 40.6 cm AI Peak Velocity 433.5 cm/s AI Peak Gradient 75.2 mmHg AI Pressure Half Time 656.1 ms LVOT Peak Velocity 135.2 cm/s LVOT Peak Gradient 7.3 mmHg LVOT Velocity Time Integral 26.0 cm LVOT Stroke Volume 69.4 cm??? LVOT Stroke Volume Index 48.7 ml/m??? AV Area Cont Eq vti 1.7 cm??? AV Area Cont Eq pk 1.8 cm??? MV Peak Velocity 154.9 cm/s MV Peak Gradient 9.6 mmHg MV Mean Velocity 59.4 cm/s MV Mean Gradient 2.1 mmHg MV Velocity Time Integral 38.6 cm MR Peak Velocity 455.2 cm/s MR Peak Gradient 82.9 mmHg Mitral E Point Velocity 62.7 cm/s Mitral A Point Velocity 119.8 cm/s Mitral E to A Ratio 0.5 MV Deceleration Time 394.9 ms TR Peak Velocity 289.7 cm/s TR Peak Gradient 33.6 mmHg Right Ventricular Systolic Press 38.6 mmHg PV Peak Velocity 120.6 cm/s PV Peak Gradient 5.8 mmHg FINDINGS Left Ventricle Mildly increased septal wall thickness. Mildly increased posterior wall thickness. Normal LV size.left ventricular ejection fraction is estimated at 55-60 %. Right Ventricle Normal right ventricular size. Right Atrium Normal right atrial size. Left Atrium Normal left atrial size. Mitral Valve Mild thickening/calcification of the anterior mitral valve leaflet. Mild to moderate MR. Aortic Valve Aortic valve not well visualized. At least mild to moderate AV calcification. Moderate AI. Tricuspid Valve Structurally normal tricuspid valve. Mild TR. Pulmonic Valve Pulmonic valve not well visualized. No pulmonic regurgitation. Pericardium Normal pericardium. Aorta Normal size aortic root. CONCLUSIONS Mildly increased left ventricular wall thickness Left ventricular ejection fraction 55-60% Mild to moderate mitral regurgitation Moderate aortic insufficiency Mild tricuspid regurgitation Previewed by: Dr. Cayden Lyon DO (Electronically Signed) Final Date: 29 June 2023 10:12
[2023-06-29 10:52] LABS: African American GFR (CKD) 18 (>60 ml/min/1.73 sqM); Anion Gap 13 mmol/L; Blood Urea Nitrogen 33 mg/dL (7-17); Calcium 10.6 mg/dL (8.4-10.2); Carbon Dioxide 18 mmol/L (22-30); Chloride 106 mmol/L (98-107); Glucose 87 mg/dL (74-99); Non-African American GFR(CKD) 15 (>60 ml/min/1.73 sqM); Potassium 3.9 mmol/L (3.5-5.1); Sodium 137 mmol/L (137-145)
--- NOTE | 2023-06-29 11:45 | P.CRDCN ---
History of Present Illness History of present illness: HISTORY OF PRESENTING ILLNESS This is a pleasant 87-year-old with past medical history significant for hypertension, chronic kidney disease who presents secondary to fall/syncope. Patient states she was in the bathroom doing her makeup when she suddenly became lightheaded and fell back into her bathtub. She admits she had difficulty getting up and eventually came to emergency department. She denies any other similar episodes in the past. She denies any recent fevers, chills, cough. Denies any new medications. She does have chronic kidney disease. She admits normally she has a fairly poor appetite however nothing new in terms of the amount of food or fluids she was drinking. Echocardiogram performed which shows preserved EF without significant valvular disease. She has mild dyspnea on exertion which she attributes her age. Troponin was not drawn. Creatinine 3.0. Hemoglobin in the 11-9 range, mildly decreased likely related to delusional effect from IV fluids. EKG shows Normal sinus rhythm, left axis deviation, left bundle branch block with nonspecific ST, T-wave abnormalities. Her orthostatics were positive with systolics from the 160s down to 100 with standing. REVIEW OF SYSTEMS At the time of my exam: CONSTITUTIONAL: Denies fever or chills. CARDIOVASCULAR: Denies chest pain, +shortness of breath, no orthopnea, PND or palpitations. RESPIRATORY: Denies cough. GASTROINTESTINAL: Denies abdominal pain, diarrhea, constipation, nausea or vomiting. MUSCULOSKELETAL: Denies myalgias. NEUROLOGIC: Denies numbness, tingling or weakness. ENDOCRINE: Denies fatigue, weight change, polydipsia or polyurina. GENITOURINARY: Denies burning, hematuria or urgency with micturation. HEMATOLOGIC: Denies history of anemia or bleeding. PHYSICAL EXAMINATION Vital signs reviewed. CONSTITUTIONAL: No apparent distress. HEENT: Head is normocephalic. Pupils are equal, round. Sclerae anicteric. Mucous membranes of the mouth are moist. No JVD. No carotid bruit. CHEST EXAMINATION: Lungs are clear to auscultation. No chest wall tenderness is noted on palpation or with deep breathing. HEART EXAMINATION: Regular rate and rhythm. S1, S2 heard. No murmurs, gallops or rub. ABDOMEN: Soft, nontender. Positive bowel sounds. EXTREMITIES: 2+ peripheral pulses, no lower extremity edema and no calf tenderness. NEUROLOGIC EXAMINATION: Patient is awake, alert and oriented x3. ASSESSMENT 1. Syncope may be related more to blood pressure, rule out arrhythmia 2. Hypertension 3. Orthostatic hypotension 4. Chronic kidney disease 5. Left bundle-branch block PLAN Patient with fall and syncope which is her first episode. Echo showing preserved EF. Not had any significant angina-type symptoms however check troponin for completeness sake. If troponin normal patient may be discharged home with outpatient event monitor for 2 weeks. Labile blood pressure with positive orthostatics and likely allow mild permissive hypertension. Past Medical History Past Medical History: Hypertension Additional Past Medical History / Comment(s): kidney failure History of Any Multi-Drug Resistant Organisms: None Reported Past Surgical History: Joint Replacement Additional Past Surgical History / Comment(s): knees replaced Past Psychological History: No Psychological Hx Reported Smoking Status: Former smoker Past Alcohol Use History: Occasional Past Drug Use History: None Reported Medications and Allergies Home Medications Medication Instructions Recorded Confirmed Type Torsemide [Demadex] 5 mg PO BID 04/01/19 06/23/23 History carvediloL [Coreg] 25 mg PO BID 05/20/19 06/23/23 History Albuterol Sulfate [Albuterol 2 puff PO RT-Q4H PRN 06/23/23 06/23/23 History Sulfate Hfa] amLODIPine [Norvasc] 5 mg PO DAILY 06/23/23 06/23/23 History hydrALAZINE HCL 12.5 mg PO BID 06/23/23 06/23/23 History Allergies Allergy/AdvReac Type Severity Reaction Status Date / Time No Known Allergies Allergy Verified 06/23/23 13:49 Physical Exam Vitals: Vital Signs Temp Pulse Pulse Pulse Pulse Resp BP 06/29/23 08:00 78 81 75 137/71 06/29/23 06:31 98.7 F 75 21 06/29/23 01:14 97.8 F 69 16 06/28/23 19:01 97.9 F 75 15 06/28/23 13:39 98.4 F 66 19 BP BP BP Pulse Ox 06/29/23 08:00 100/65 169/69 06/29/23 06:31 169/69 91 L 06/29/23 01:14 158/72 94 L 06/28/23 19:01 176/75 93 L 06/28/23 13:39 156/65 95 Intake and Output 06/28/23 06/29/23 06/29/23 22:59 06:59 14:59 Other: # Voids 1 1 1 # Bowel Movements 1 1 Results 06/28/23 05:25 06/29/23 09:29 Comprehensive Metabolic Panel 06/29/23 Range/Units 09:29 Sodium 137 (137-145) mmol/L Potassium 3.9 (3.5-5.1) mmol/L Chloride 106 (98-107) mmol/L Carbon Dioxide 18 L (22-30) mmol/L BUN 33 H (7-17) mg/dL Creatinine 2.66 H (0.52-1.04) mg/dL Glucose 87 (74-99) mg/dL Calcium 10.6 H (8.4-10.2) mg/dL Current Medications Generic Name Dose Route Start Last Admin Trade Name Freq PRN Reason Stop Dose Admin Acetaminophen 650 mg 06/23/23 13:58 Acetaminophen Tab 325 Mg Tab PO Q6HR PRN Mild Pain or Fever > 100.5 Amlodipine Besylate 5 mg 06/24/23 09:00 06/29/23 09:19 Amlodipine 5 Mg Tab PO 5 mg DAILY JENNIFFER Administration Carvedilol 12.5 mg 06/25/23 17:30 06/29/23 06:57 Carvedilol 12.5 Mg Tab PO 12.5 mg BID-W/MEALS JENNIFFER Administration Cyanocobalamin 500 mcg 06/29/23 09:00 06/29/23 09:18 Cyanocobalamin 1,000 Mcg/Ml 1 Ml Vial IM 500 mcg DAILY JENNIFFER Administration Folic Acid 1 mg 06/25/23 16:15 06/29/23 09:19 Folic Acid 1 Mg Tab PO 1 mg DAILY JENNIFFER Administration Hydralazine HCl 25 mg 06/28/23 21:00 06/29/23 09:18 Hydralazine Hcl 25 Mg Tab PO 25 mg BID JENNIFFER Administration Naloxone HCl 0.2 mg 06/23/23 13:58 Naloxone 0.4 Mg/Ml 1 Ml Vial IV Q2M PRN Opioid Reversal Ondansetron HCl 4 mg 06/23/23 13:58 Ondansetron 4 Mg/2 Ml Vial IVP Q8HR PRN Nausea And Vomiting Pantoprazole Sodium 40 mg 06/24/23 11:45 06/29/23 09:18 Pantoprazole 40 Mg/10 Ml Vial IVP 40 mg BID JENNIFFER Administration Senna/Docusate Sodium 1 each 06/27/23 10:30 06/29/23 09:19 Sennosides-Docusate Sodium 1 Each Tab PO 1 each BID JENNIFFER Administration Intake and Output 06/28/23 06/29/23 06/29/23 22:59 06:59 14:59 Other: # Voids 1 1 1 # Bowel Movements 1 1 06/28/23 05:25 06/29/23 09:29
--- NOTE | 2023-06-29 12:47 | P.DS ---
Providers Date of admission: 06/23/23 14:00 Attending physician: Jordan Mitchell MD Consults: 06/23/23 14:17 Consult Physician Urgent Consulting Provider: Jaimie Fields Consult Reason/Comments: Dizziness, hallucinations Do you want consulting provider notified?: Yes Consult Physician Urgent Consulting Provider: Caitlin Phipps Consult Reason/Comments: Renal disease Do you want consulting provider notified?: Yes 06/27/23 12:21 Consult Physician Urgent Consulting Provider: Rick Nicole Consult Reason/Comments: drop hb, possible acd vs other Do you want consulting provider notified?: Yes 06/28/23 11:18 Consult Physician Urgent Consulting Provider: Reza Case Consult Reason/Comments: family request Do you want consulting provider notified?: Yes 06/28/23 22:18 Consult Physician Routine Consulting Provider: Jimy Prabhakar Consult Reason/Comments: dizziness Do you want consulting provider notified?: Yes, Notify in am Primary care physician: [facility] Course: Diagnoses: 1. Acute on chronic kidney disease stage IV, improving 2. Dizziness/fall - Workup completed in ED including CT of the head, C-spine and x-ray of thoracic and lumbar spine is unremarkable - Cardiology team evaluated the patient - Start folate and vitamin B12 replacement therapy -Photographer Lithographic recommended event monitor, patient and family declined 3. Weakness/generalized decline; consult PT/OT home health care upon discharge patient is found to subacute rehab - 4. Hypertension; control 5. Orthostatic hypotension Hospital course: 87-year-old female with history of hypertension and chronic kidney disease stage IV presents emergency Department with chief complaint of fall. Patient states she was in the bathroom states that she moved and became dizzy and states that it causes her to fall yesterday. Patient was found to have orthostatic hypotension, acute on chronic anemia which is thought to be anemia of chronic disease with mild elements of vitamin B12 and folate deficiency and replacement therapy has been started Neurologist and security trainer evaluated the patient, event monitor recommended for the patient but the family declined. Valve Technician were following the patient, her creatinine was 3 on admission improved to 2.6 which is close to baseline of 2.2-2.4. She's was hypertensive, hydralazine 25 mg 3 times a day was added, as better controlled Patient is able to walk using her walker but she will benefit from ECF for rehab upon discharge Patient was very eager to go to rehab today, family wanted patient to be discharged today and the decline need for psychiatrist evaluation or event monitor Patient was cleared for discharge by all consultants with the fur operator, security trainer, neurologist. Problems and management plan were discussed with the patient and he verbalized u nderstanding and acceptance Patient was found stable and can be discharged home in guarded prognosis however he needs follow-up as an outpatient. Patient was instructed to follow up with PCP Dr. Wadsworth within one week and patient agrees Patient was instructed to follow up with Dr. Phipps in one week and security trainer Dr. Lyon neurologist Dr. Dennison in 2-3 weeks and she agrees Physical exam We recommend patient to be careful when she stands up and start working because of her orthostatic hypotension. Also recommend compression stockings to help her with venous return -Gen: patient is a AAOx2-3, no distress. Generally weak CVS: S1-S2, RRR, no murmur Lungs: B/L CTA, no wheezing Abdomen: soft, no distention, no tenderness, positive bowel sounds Extremity: no leg edema or induration Time spent more than 35 minutes Patient Condition at Discharge: Fair Plan - Discharge Summary Discharge Rx Participant: Yes New Discharge Prescriptions: No Action Torsemide [Demadex] 5 mg PO BID carvediloL [Coreg] 25 mg PO BID amLODIPine [Norvasc] 5 mg PO DAILY Albuterol Sulfate [Albuterol Sulfate Hfa] 2 puff PO RT-Q4H PRN PRN Reason: Shortness Of Breath hydrALAZINE HCL 12.5 mg PO BID Discharge Medication List Torsemide [Demadex] 5 mg PO BID 04/01/19 [History] carvediloL [Coreg] 25 mg PO BID 05/20/19 [History] Albuterol Sulfate [Albuterol Sulfate Hfa] 2 puff PO RT-Q4H PRN 06/23/23 [History] amLODIPine [Norvasc] 5 mg PO DAILY 06/23/23 [History] hydrALAZINE HCL 12.5 mg PO BID 06/23/23 [History] Follow up Appointment(s)/Referral(s): Caitlin Phipps MD [STAFF PHYSICIAN] - 1 Week Cayden Lyon DO [STAFF PHYSICIAN] - 2 Weeks (we recommend outpatient event monitor for 2 weeks) Teo Madrid MD [Primary Care Provider] - 1-2 days Kimberly Dennison MD [Medical Doctor] - 3 Weeks (neurologist ) Activity/Diet/Wound Care/Special Instructions: heart healthy diet activity is as tolerated we recommend outpatient event monitor for 2 weeks
--- NOTE | 2023-06-29 13:32 | P.PN ---
Subjective Patient is seen for follow-up for acute kidney injury on chronic kidney disease. Orthostatic hypotension was noted. Renal function is improved with creatinine down to 2.6 Status post IV fluids. Objective - Vital Signs Vital signs: Vital Signs Temp 98.7 F 06/29/23 06:31 Pulse 78 06/29/23 08:00 Resp 21 06/29/23 06:31 BP 137/71 06/29/23 08:00 Pulse Ox 91 L 06/29/23 06:31 FiO2 Intake & Output 06/28/23 06/29/23 06/29/23 18:59 06:59 18:59 Weight 45.359 kg Other: # Voids 1 1 1 # Bowel Movements 1 1 - Exam Patient is awake, comfortable, no acute distress Examination of the heart S1 and S2 Examination of the lungs bilateral breath sounds are heard Abdomen is soft nontender Examination of lower extremities shows no evidence of edema BELLMAN CAPTAIN exam grossly intact - Labs CBC & Chem 7: 06/28/23 05:25 06/29/23 09:29 Labs: Abnormal Lab Results - Last 24 Hours (Table) 06/29/23 Range/Units 09:29 Carbon Dioxide 18 L (22-30) mmol/L BUN 33 H (7-17) mg/dL Creatinine 2.66 H (0.52-1.04) mg/dL Calcium 10.6 H (8.4-10.2) mg/dL Assessment and Plan Assessment: 1. Acute kidney injury most likely prerenal with possible component of ATN. Significant orthostatic hypotension noted. Currently maintained on IV fluids. UA is quite benign with 2+ protein and trace blood. No nephrotoxic agents noted. 2. Chronic kidney disease NKF stage IV secondary to nephrosclerosis with no plans for renal replacement therapy. 3. Hypertension with CK D stage IV 4. Status post fall and syncope. Neurology has been consulted. 5. Borderline hypercalcemia associated with primary hyperparathyroidism. Serum calcium is stable. Plan: Okay for discharge from nephrology standpoint on decreased dose of antihypertensive medications Increase ambulation as tolerated.
== END 2023-06-29 14:36 | DRG 682 ==
LOC: EC 09:43 → 4SSUR 14:00
PROVIDERS: ADMIT Internal Medicine; ATTEND Internal Medicine
DX: N17.0 Acute kidney failure with tubular necrosis (principal); E43 Unspecified severe protein-calorie malnutrition; G91.9 Hydrocephalus, unspecified; I12.0 Hypertensive chronic kidney disease with stage 5 chronic kidney disease or end stage renal disease; Z68.1 Body mass index [BMI] 19.9 or less, adult; W19.XXXA Unspecified fall, initial encounter; I95.1 Orthostatic hypotension; N18.5 Chronic kidney disease, stage 5; D63.8 Anemia in other chronic diseases classified elsewhere; D53.8 Other specified nutritional anemias; K59.00 Constipation, unspecified; M43.19 Spondylolisthesis, multiple sites in spine; M47.819 Spondylosis without myelopathy or radiculopathy, site unspecified; M48.02 Spinal stenosis, cervical region; M51.34 Other intervertebral disc degeneration, thoracic region; S00.03XA Contusion of scalp, initial encounter; E21.0 Primary hyperparathyroidism; I08.3 Combined rheumatic disorders of mitral, aortic and tricuspid valves; R00.1 Bradycardia, unspecified; E11.22 Type 2 diabetes mellitus with diabetic chronic kidney disease; E83.52 Hypercalcemia; E53.8 Deficiency of other specified B group vitamins; I44.7 Left bundle-branch block, unspecified; M85.88 Other specified disorders of bone density and structure, other site; Z79.899 Other long term (current) drug therapy; Z91.81 History of falling
CPT/HCPCS: 36415; 70450; 72070; 72100; 72125; 72170; 80048; 80053; 81001; 82607; 82668; 82728; 82746; 83540; 83550; 83921; 84207; 84425; 84439; 84443; 84484; 85025; 85027; 93005; 93306; 93880; 99285

== ENCOUNTER 2023-09-26 07:08 | Emergency (ER) | payer MEDICARE, BC ==
[2023-09-26 07:31] VITALS: RESP 18; TEMP 98
--- NOTE | 2023-09-26 07:41 | ED ---
General Adult HPI - General Chief complaint: Head Injury Stated complaint: Fall, head injury Time Seen by Provider: 09/26/23 07:15 Source: patient, RN notes reviewed, old records reviewed Mode of arrival: EMS Limitations: no limitations - History of Present Illness Initial comments: This is an 87-year-old female who presents to the emergency department complaining of having had a fall. Patient stayed in the bathroom this morning about an hour prior to arrival she fell hit her head on the hardwood floor and had some swelling over the left eye. Patient states she did not lose consciousness she was not dazed. Patient denies any neck pain patient has numbness weakness. Patient states she does have a mild headache in the area of the forehead where there is the contusion is tender. Patient denies any chest or back pain patient has any abdominal pain patient has any extremity pain patient denies being on any blood thinners - Related Data Home Medications Medication Instructions Recorded Confirmed Albuterol Sulfate [Albuterol 2 puff PO RT-Q4H PRN 06/23/23 06/23/23 Sulfate Hfa] Previous Rx's Medication Instructions Recorded Acetaminophen Tab [Tylenol] 650 mg PO Q6HR PRN tab 06/29/23 Cyanocobalamin [Vitamin B-12 500 mcg IM DAILY #30 each 06/29/23 Injection] Folic Acid 1 mg PO DAILY #30 tab 06/29/23 Sennosides-Docusate Sodium 1 each PO BID PRN tab 06/29/23 [Senokot-S] amLODIPine [Norvasc] 5 mg PO DAILY tab 06/29/23 carvediloL [Coreg*] 12.5 mg PO BID-W/MEALS tab 06/29/23 hydrALAZINE HCL [Apresoline] 25 mg PO BID tab 06/29/23 Allergies Allergy/AdvReac Type Severity Reaction Status Date / Time No Known Allergies Allergy Verified 09/26/23 07:13 Review of Systems ROS Statement: Those systems with pertinent positive or pertinent negative responses have been documented in the HPI. ROS Other: All systems not noted in ROS Statement are negative. Past Medical History Past Medical History: Hypertension Additional Past Medical History / Comment(s): kidney failure History of Any Multi-Drug Resistant Organisms: None Reported Past Surgical History: Joint Replacement Additional Past Surgical History / Comment(s): knees replaced Past Psychological History: No Psychological Hx Reported Smoking Status: Former smoker Past Alcohol Use History: Occasional Past Drug Use History: None Reported General Exam - General Exam Comments Initial Comments: GENERAL: Patient is well-developed and well-nourished. Patient is nontoxic and well- hydrated and is in mild distress. ENT: Neck is soft and supple. No significant lymphadenopathy is noted. Oropharynx is clear. Moist mucous membranes. Neck has full range of motion without elic iting any pain. Patient has a contusion on the forehead on the left upper portion EYES: The sclera were anicteric and conjunctiva were pink and moist. Extraocular movements were intact and pupils were equal round and reactive to light. Eyelids were unremarkable. Patient has some swelling of the upper eyelid very minimal supraorbital tenderness PULMONARY: Unlabored respirations. Good breath sounds bilaterally. No audible rales rhonchi or wheezing was noted. CARDIOVASCULAR: There is a regular rate and rhythm without any murmurs gallops or rubs. ABDOMEN: Soft and nontender with normal bowel sounds. SKIN: Skin is clear with no lesions or rashes and otherwise unremarkable. NEUROLOGIC: Patient is alert and oriented x3. Cranial nerves II through XII are grossly intact. Motor and sensory are also intact. Normal speech, volume and content. Symmetrical smile. MUSCULOSKELETAL: Normal extremities with adequate strength and full range of motion. LYMPHATICS: No significant lymphadenopathy is noted PSYCHIATRIC: Normal psychiatric evaluation. Limitations: no limitations Course Vital Signs 09/26/23 07:11 Temperature 98 F Pulse Rate 76 Respiratory 18 Rate Blood Pressure 199/78 O2 Sat by Pulse 97 Oximetry Medical Decision Making - Medical Decision Making Was pt. sent in by a medical professional or institution (, PA, MEASUREMENT TECHNICIAN, urgent care, hospital, or long term...) When possible be specific @ -No Did you speak to anyone other than the patient for history (EMS, parent, family, police, friend...)? What history was obtained from this source @ -No Did you review nursing and triage notes (agree or disagree)? Why? @ -I reviewed and agree with nursing and triage notes Were old charts reviewed (outside hosp., previous admission, EMS record, old EKG, old radiological studies, urgent care reports/EKG's, long term records)? Report findings @ -No old charts were reviewed Differential Diagnosis (chest pain, altered mental status, abdominal pain women, abdominal pain men, vaginal bleeding, weakness, fever, dyspnea, syncope, headache, dizziness, GI bleed, back pain, seizure, CVA, palpatations, mental health, musculoskeletal)? @ -Skull fracture, subdural, parenchymal hemorrhage, epidural, subarachnoid, spinal fracture, contusion, this is not an all-inclusive list EKG interpreted by me (3pts min.). @ -As above X-rays interpreted by me (1pt min.). @ -None done CT interpreted by me (1pt min.). @ -CT of the brain and C-spine showed no acute normality. CT of the orbits showed no acute abnormality. U/S interpreted by me (1pt. min.). @ -None done What testing was considered but not performed or refused? (CT, X-rays, U/S, labs)? Why? @ -None What meds were considered but not given or refused? Why? @ -None Did you discuss the management of the patient with other professionals (professionals i.e. , PA, MEASUREMENT TECHNICIAN, lab, RT, psych nurse, social services manager, button puncher, teacher, special officer, nurse outreach case manager)? Give summary @ -No Was smoking cessation discussed for >3mins.? @ -No Was critical care preformed (if so, how long)? @ -No Were there social determinants of health that impacted care today? How? (Homelessness, low income, unemployed, alcoholism, drug addiction, transportation, low edu. Level, literacy, decrease access to med. care, senior living, rehab)? @ -No Was there de-escalation of care discussed even if they declined (Discuss DNR or withdrawal of care, Hospice)? DNR status @ -No What co-morbidities impacted this encounter? (DM, HTN, Smoking, COPD, CAD, Cancer, CVA, ARF, Chemo, Hep., AIDS, mental health diagnosis, sleep apnea, morbid obesity)? @ -None Was patient admitted / discharged? Hospital course, mention meds given and route, prescriptions, significant lab abnormalities, going to OR and other pertinent info. @ -Patient had no further complaints aside from a mild headache and a little pain on her forehead. Undiagnosed new problem with uncertain prognosis? @ -No Drug Therapy requiring intensive monitoring for toxicity (Heparin, Nitro, Insulin, Cardizem)? @ -No Were any procedures done? @ -No Diagnosis/symptom? @ -Head injury Acute, or Chronic, or Acute on Chronic? @ -Acute Uncomplicated (without systemic symptoms) or Complicated (systemic symptoms)? @ -Complicated Side effects of treatment? @ -No Exacerbation, Progression, or Severe Exacerbation? @ -No Poses a threat to life or bodily function? How? (Chest pain, USA, MD, pneumonia, PE, COPD, DKA, ARF, appy, cholecystitis, CVA, Diverticulitis, Homicidal, Suicidal, threat to staff... and all critical care pts) @ -No Diagnosis/symptom? @ -Forehead contusion Acute, or Chronic, or Acute on Chronic? @ -Acute Uncomplicated (without systemic symptoms) or Complicated (systemic symptoms)? @ -Complicated Side effects of treatment? @ -None Exacerbation, Progression, or Severe Exacerbation] @ -No Poses a threat to life or bodily function? @ -No Disposition Clinical Impression: Head injury, Forehead contusion Disposition: HOME SELF-CARE Instructions (If sedation given, give patient instructions): Concussion (ED) Is patient prescribed a controlled substance at d/c from ED?: No Referrals: Teo Madrid MD [Primary Care Provider] - 1-2 days Time of Disposition: 08:32
--- NOTE | 2023-09-26 09:24 | CT ---
EXAMINATION TYPE: CT brain cspine wo con CT DLP: 770.4 mGycm, Automated exposure control for dose reduction was used. DATE OF EXAM: 09/26/2023 8:39 AM COMPARISON: None. CLINICAL INDICATION:Female, 87 years old with history of Trauma; Fall TECHNIQUE: Brain: Multiple axial CT images of the brain were obtained without IV contrast. Cspine: Axial CT images from the skull base to the inferior aspect of T2 we obtained without intraven ous contrast. Coronal and sagittal reformatted images were also reviewed. FINDINGS: Brain: Extra-axial spaces: No abnormal extra-axial fluid collections. Ventricular system: Appear dilated in proportion to the degree of cerebral atrophy. Cerebral parenchyma: No increased attenuation to suggest acute intraparenchymal hemorrhage. The gra y-white matter interface appears maintained. Moderate to severe generalized brain atrophy. Scattere d hypoattenuating areas are seen within the cerebral white matter, nonspecific but most often seen wi th chronic microvascular ischemic changes; mild/moderate in degree. Cerebellum: No acute abnormality. Mass effect: No evidence of mass effect or midline shift. Intracranial vasculature: Atherosclerotic calcifications of the larger arteries near the skull base. Soft tissues: There is some left periorbital preseptal soft tissue swelling, and cranial to the left orbit there is what appears to be a combination of subgaleal and subcutaneous hematoma in the scalp, the thickest portion of which is approximately 2.2 cm. Visualized orbits: Please refer to orbital CT Calvarium/osseous structures: No evidence of calvarial fracture. Paranasal sinuses and mastoid air cells: Scattered mild mucosal thickening throughout the paranasal s inuses. No significant fluid accumulation. The mastoid air cells are clear. MRI is more sensitive for detecting acute processes such as infarct, and may be considered if clinica lly warranted. Cervical spine: Fracture: None seen. Osseous structures, spinal canal/neural foramina: The cranial cervical junction appears intact. Mild/ moderate degenerative changes of the atlantooccipital joints and anterior C1-C2 articulation. Mild re trodental soft tissue with some small calcifications noted. No significant canal narrowing. There are otherwise moderate degenerative disc disease and facet arthrosis changes throughout the cervical spi ne. This appears most progressed at the C5-C6 level where there is associated moderate canal and neur al foraminal stenoses. Milder stenoses at other levels. No critical stenosis is suggested. Vertebral alignment: No traumatic malalignment. Mild reversal of the normal cervical lordosis, can be seen with degenerative changes, pain, spasm or positioning. Mild degenerative anterolisthesis C2 on C3 and C3 on C4, mild degenerative retrolisthesis C4 on C5. Neck soft tissues: No acute finding.. Calcifications noted involving the cervical carotid arteries mo stly in the bifurcation regions. Thyroid appears normal in size but heterogeneous. Other: Included lung apices show mild emphysematous changes. Some plaque-like pleural calcifications which can be seen with prior asbestos exposure. A portion of a moderate to large left pleural effusio n. No apical pneumothorax. IMPRESSION: CT head: 1. Large scalp hematoma over the left supraorbital forehead. 2. No evidence of calvarial fracture. 3. No acute intracranial hemorrhage, midline shift, or mass effect. 4. Atrophy and chronic microvascular ischemic changes. CT cervical spine: 1. No evidence of acute cervical spine fracture or traumatic malalignment. 2. Moderate cervical spondylosis. 3. Included lung apices show mild emphysematous changes. Some plaque-like pleural calcifications whic h can be seen with prior asbestos exposure. A portion of a moderate to large left pleural effusion. N o apical pneumothorax.
--- NOTE | 2023-09-26 09:33 | CT ---
EXAMINATION TYPE: CT orbits wo con CT DLP: 770.4 mGycm, Automated exposure control for dose reduction was used. DATE OF EXAM: 09/26/2023 8:40 AM COMPARISON: [facility] CT head. CLINICAL INDICATION:Female, 87 years old with history of Fall; PHH, Fall TECHNIQUE: Orbits: CT of the orbits was performed with generation of multiplanar reformats. No contrast was util ized. Findings: Orbital Contents: * Globes: Appear intact. There appears to have been prior lens surgery bilaterally. * Preseptal Tissues: Mild preseptal soft tissue thickening on the left, with continuation into the l eft supraorbital scalp cranially and partially imaged hematoma; refer to head CT * Intraconal Structures: Normal. * Extraconal Structures and Lacrimal Glands: Normal. * Orbital Maurice: Normal. Osseous: No evidence of orbital fracture. Orbits appear symmetric. No fracture either of the visualiz ed facial bones and calvaria. Sella Turcica and Cavernous Sinuses: The sella turcica and cavernous sinus regions are intact and sym metric. Moderate to heavy calcification of the bilateral carotid siphons. Visualized Brain Parenchyma: No acute abnormality Paranasal Sinuses and Surrounding Structures: Refer to CT head/cervical spine. Other: None significant Please refer to CT head/cervical spine for further description of findings. IMPRESSION: 1. Periorbital preseptal soft tissue thickening on the left, with continuation into the left supraor bital scalp and partially imaged hematoma; refer to head CT for details. 2. Globes appear intact. 3. No orbital fracture or evidence of intraorbital injury. No retrobulbar hematoma.
[2023-09-26 09:50] LABS: Appearance,Urine Clear (Clear); Bacteria,Urine Rare /hpf; Bilirubin,Urine Negative (Negative); Blood,Urine Negative (Negative); Color,Urine Colorless; Glucose,Urine (UA) Negative (Negative); Ketones,Urine Negative (Negative); Leukocyte Esterase,Urine Negative (Negative); Nitrite,Urine Negative (Negative); PH, Urine 6.5 (5.0-8.0); Protein,Urine 1+ (Negative); RBC,Urine 1 /hpf (0-5); Specific Gravity,Urine 1.013 (1.001-1.035); Squamous Epithelial Cell,Urine 3 /hpf (0-4); Urobilinogen,Urine <2.0 mg/dL (<2.0); WBC,Urine 1 /hpf (0-5)
[2023-09-26 10:37] VITALS: BP 177/81; PULSE 70
== END 2023-09-26 09:45 | disposition home or self-care (01) ==
LOC: EC 07:08
DX: S00.83XA Contusion of other part of head, initial encounter (principal); Z87.891 Personal history of nicotine dependence; W18.09XA Striking against other object with subsequent fall, initial encounter; Y92.002 Bathroom of unspecified non-institutional (private) residence as the place of occurrence of the external cause
CPT/HCPCS: 81001; 72125; 70450; 70480; 99284; L0120

== ENCOUNTER 2023-09-27 09:05 | Inpatient (IN) | payer MEDICARE, BC ==
[2023-09-27 09:43] LABS: Basophils # (A) 0.1 k/uL (0-0.2); Basophils % (A) 1 %; Eosinophils # (A) 0.3 k/uL (0-0.7); Eosinophils % (A) 5 %; HCT 23.8 % (34.0-46.0); HGB 7.5 gm/dL (11.4-16.0); Lymphocytes # (A) 1.5 k/uL (1.0-4.8); Lymphocytes % (A) 26 %; MCH 27.6 pg (25.0-35.0); MCHC 31.7 g/dL (31.0-37.0); MCV 87.3 fL (80.0-100.0); Mean Platelet Volume 8.4; Monocytes # (A) 0.5 k/uL (0-1.0); Monocytes % (A) 9 %; Neutrophils # (A) 3.2 k/uL (1.3-7.7); Neutrophils % (A) 57 %; Platelet Count 199 k/uL (150-450); RBC 2.73 m/uL (3.80-5.40); RDW 15.9 % (11.5-15.5); WBC 5.6 k/uL (3.8-10.6)
[2023-09-27] MEDS: SODIUM CHLORIDE 0.9% 500 ML 500 ML IV STA (10:01)
[2023-09-27] MEDS: methylPREDNISolone SOD SUCCI 125 MG/2 ML VIAL IV STA (10:01)
--- NOTE | 2023-09-27 10:01 | XR ---
EXAMINATION TYPE: XR chest 2V DATE OF EXAM: 09/27/2023 COMPARISON: 03/02/2023 TECHNIQUE: PA and lateral views submitted. HISTORY: Shortness of breath FINDINGS: Ectasia or aneurysmal dilation of the thoracic aorta similar to prior exam with atherosclerotic cash es. New area of left lower lobe consolidation and small bilateral effusion. Diffuse osteopenia, degen erative changes of the spine and arthropathy of the shoulders. No overt failure. IMPRESSION: 1. Left lower lobe consolidation and small bilateral pleural effusions superimposed on a background o f COPD. Correlate for pneumonia. 2. Stable appearing thoracic aortic ectasia or aneurysm.
[2023-09-27 10:09] LABS: ALT 10 U/L (4-34); AST 17 U/L (14-36); African American GFR (CKD) 15 (>60 ml/min/1.73 sqM); Albumin 3.3 g/dL (3.5-5.0); Alkaline Phosphatase 44 U/L (38-126); Anion Gap 9 mmol/L; Blood Urea Nitrogen 38 mg/dL (7-17); Calcium 8.8 mg/dL (8.4-10.2); Carbon Dioxide 17 mmol/L (22-30); Chloride 112 mmol/L (98-107); Glucose 85 mg/dL (74-99); Non-African American GFR(CKD) 13 (>60 ml/min/1.73 sqM); Potassium 3.8 mmol/L (3.5-5.1); Sodium 138 mmol/L (137-145); Total Bilirubin 0.5 mg/dL (0.2-1.3); Total Protein 5.9 g/dL (6.3-8.2)
[2023-09-27] MEDS: IPRATROPIUM-ALBUTEROL 3 ML NEB INHALATION STA (11:15)
[2023-09-27] MEDS ORDERED: PNEUMONIA PROTOCOL UTILIZED 1 EACH MISC PO PRN (11:54)
--- NOTE | 2023-09-27 11:56 | ED ---
General Adult HPI - General Chief complaint: Shortness of Breath Stated complaint: SOB Time Seen by Provider: 09/27/23 09:18 Source: patient, EMS, RN notes reviewed, old records reviewed Mode of arrival: EMS Limitations: no limitations - History of Present Illness Initial comments: Patient is an 87-year-old female presents emergency department complaining of shortness of breath, cough. Patient was evaluated yesterday after a fall. Presents for her assisted living facility [facility]. Patient is chronically on albuterol inhaler at home. Remote history of smoking. No diagnosed COPD or asthma per patient. DuoNeb was provided. She has a history of CKD. She currently has no acute complaints. Presents for further evaluation at this time. Denies any fevers or chills. Denies sore throat. - Related Data Home Medications Medication Instructions Recorded Confirmed Albuterol Sulfate [Albuterol 2 puff PO RT-Q4H PRN 06/23/23 09/27/23 Sulfate Hfa] Cyanocobalamin (Vitamin B-12) 1,000 mcg PO DAILY 09/27/23 09/27/23 [Vitamin B-12] Yolanda-Tussin Dm 10 ml PO Q6H PRN 09/27/23 09/27/23 Magnesium Hydroxide [Milk of 2,400 mg PO DAILY PRN 09/27/23 09/27/23 Magnesia] Megestrol [Megace] 400 mg PO DAILY 09/27/23 09/27/23 Multivit-Min/Iron/Folic/Lutein 1 tab PO DAILY 09/27/23 09/27/23 [Centrum Silver Women Tablet] Na Phos,M-B/Na Phos,Di-Ba [Fleet 133 ml RECTAL DAILY PRN 09/27/23 09/27/23 Adult] Sennosides-Docusate Sodium 1 tab PO BID PRN 09/27/23 09/27/23 [Senokot-S] Torsemide [Demadex] 10 mg PO DAILY 09/27/23 09/27/23 hydrALAZINE HCL [Apresoline] 50 mg PO BID-W/MEALS 09/27/23 09/27/23 Previous Rx's Medication Instructions Recorded Acetaminophen Tab [Tylenol] 650 mg PO Q6HR PRN tab 06/29/23 Folic Acid 1 mg PO DAILY #30 tab 06/29/23 amLODIPine [Norvasc] 5 mg PO DAILY tab 06/29/23 carvediloL [Coreg*] 12.5 mg PO BID-W/MEALS tab 06/29/23 Allergies Allergy/AdvReac Type Severity Reaction Status Date / Time No Known Allergies Allergy Verified 09/27/23 11:56 Review of Systems ROS Statement: Those systems with pertinent positive or pertinent negative responses have been documented in the HPI. Review of Systems: CONST: Denies fever EYES: Denies blurry vision ENT: Endorses nasal congestion, cough C/V: Denies Chest pain RESP: Endorses wheezing GI: Denies abdominal pain : Denies dysuria SKIN: Denies rash. MSK: Denies joint pain. NEURO: Denies headache ROS Other: All systems not noted in ROS Statement are negative. Past Medical History Past Medical History: Hypertension Additional Past Medical History / Comment(s): kidney failure History of Any Multi-Drug Resistant Organisms: None Reported Past Surgical History: Joint Replacement Additional Past Surgical History / Comment(s): knees replaced Past Psychological History: No Psychological Hx Reported Smoking Status: Former smoker Past Alcohol Use History: Occasional Past Drug Use History: None Reported General Exam - General Exam Comments Initial Comments: General: Appears in no acute distress. HEAD: Normal with no signs of head trauma. EYES: PERRLA, EOMI, conjunctiva normal, no discharge. ENT: Hearing grossly intact, normal oropharynx. RESPIRATORY: Mild bilateral end expiratory wheezing. No hypoxia. No increased work of breathing. C/V: Regular rate and rhythm. S1 and S2 auscultated, no edema, peripheral pulses 2+ and intact throughout ABD: Abd is soft, nontender, nondistended EXT: Normal range of motion, no obvious deformity SKIN: Bruising over the left side of her face. Secondary to hematoma from the other day. NEURO: Alert and oriented x 4. Limitations: no limitations Course Vital Signs 09/27/23 09/27/23 09/27/23 09:13 11:16 11:25 Temperature 98.4 F Pulse Rate 71 68 66 Respiratory 18 Rate Blood Pressure 149/69 O2 Sat by Pulse 97 Oximetry 09/27/23 12:28 Temperature Pulse Rate 71 Respiratory 14 Rate Blood Pressure 177/79 O2 Sat by Pulse 95 Oximetry Medical Decision Making - Medical Decision Making Was pt. sent in by a medical professional or institution (Dr., PA, PAIL TESTER, urgent care, hospital, or longterm...) When possible be specific @ -Sent from assisted living for evaluation. Did you speak to anyone other than the patient for history (EMS, parent, family, police, friend...)? What history was obtained from this source @ -No Did you review nursing and triage notes (agree or disagree)? Why? @ -I reviewed and agree with nursing and triage notes Were old charts reviewed (outside hosp., previous admission, EMS record, old EKG, old radiological studies, urgent care reports/EKG's, longterm records)? Report findings @ -Old charts reviewed Differential Diagnosis (chest pain, altered mental status, abdominal pain women, abdominal pain men, vaginal bleeding, weakness, fever, dyspnea, syncope, headache, dizziness, GI bleed, back pain, seizure, CVA, palpatations, mental health, musculoskeletal)? @ -Pneumonia, COVID, flu, COPD. This list is not all inclusive. EKG interpreted by me (3pts min.). @ -As above X-rays interpreted by me (1pt min.). @ -Chest x-ray reveals left lower lobe pneumonia. CT interpreted by me (1pt min.). @ -None done U/S interpreted by me (1pt. min.). @ -None done What testing was considered but not performed or refused? (CT, X-rays, U/S, labs)? Why? @ -None What meds were considered but not given or refused? Why? @ -None Did you discuss the management of the patient with other professionals (professionals i.e. , PA, PAIL TESTER, lab, RT, psych nurse, social media marketing manager, director of industrial relations, teacher, accounting officer, casey saw operator)? Give summary @ -Discussed with Dr. Madrid who accepted the admission. Was smoking cessation discussed for >3mins.? @ -No Was critical care preformed (if so, how long)? @ -No Were there social determinants of health that impacted care today? How? (Homelessness, low income, unemployed, alcoholism, drug addiction, transportation, low edu. Level, literacy, decrease access to med. care, fpc, rehab)? @ -No Was there de-escalation of care discussed even if they declined (Discuss DNR or withdrawal of care, Hospice)? DNR status @ -No What co-morbidities impacted this encounter? (DM, HTN, Smoking, COPD, CAD, Cancer, CVA, ARF, Chemo, Hep., AIDS, mental health diagnosis, sleep apnea, morbid obesity)? @ -None Was patient admitted / discharged? Hospital course, mention meds given and route, prescriptions, significant lab abnormalities, going to OR and other pertinent info. @ -Based on the patient's presentation and physical exam, presents emergency department complaining of upper respiratory symptoms. We will obtain pulmonary workup. Patient in agreement this plan. Vital signs currently within acceptable limits. Patient is wheezing. EKG is unremarkable. Chest x-ray shows left lower lobe pneumonia. Labs remarkable for chronic anemia which is at her baseline as well as CKD which is at her baseline. Viral swabs negative. On reevaluation, patient is feeling improved. I did discuss the results with the patient as well as her daughter. Initially they wanted the patient to go home, however after discussion I did offer admission due to the patient's age as well as her lab findings and we both agree to admit the patient observation at this time. Will continue with IV steroids and breathing treatments as well as IV antibiotics for pneumonia. Patient was in agreement this plan. Spoke with the admitting physician, Dr. Madrid who accepted the admission. Undiagnosed new problem with uncertain prognosis? @ -No Drug Therapy requiring intensive monitoring for toxicity (Heparin, Nitro, Insulin, Cardizem)? @ -No Were any procedures done? @ -No Diagnosis/symptom? @ -Pneumonia, COPD Acute, or Chronic, or Acute on Chronic? @ -Acute Uncomplicated (without systemic symptoms) or Complicated (systemic symptoms)? @ -Complicated Side effects of treatment? @ -No Exacerbation, Progression, or Severe Exacerbation? @ -No Poses a threat to life or bodily function? How? (Chest pain, [place], [place], pneumonia, PE, COPD, DKA, ARF, appy, cholecystitis, CVA, Diverticulitis, Homicidal, Suicidal, threat to staff... and all critical care pts) @ -Yes - Lab Data Result diagrams: 09/27/23 09:35 09/27/23 09:35 Lab Results 09/27/23 09/27/23 09/27/23 Range/Units 09:35 09:35 09:35 WBC 5.6 (3.8-10.6) k/uL RBC 2.73 L (3.80-5.40) m/uL Hgb 7.5 L (11.4-16.0) gm/dL Hct 23.8 L (34.0-46.0) % MCV 87.3 (80.0-100.0) fL MCH 27.6 (25.0-35.0) pg MCHC 31.7 (31.0-37.0) g/dL RDW 15.9 H (11.5-15.5) % Plt Count 199 (150-450) k/uL MPV 8.4 Neutrophils % 57 % Lymphocytes % 26 % Monocytes % 9 % Eosinophils % 5 % Basophils % 1 % Neutrophils # 3.2 (1.3-7.7) k/uL Lymphocytes # 1.5 (1.0-4.8) k/uL Monocytes # 0.5 (0-1.0) k/uL Eosinophils # 0.3 (0-0.7) k/uL Basophils # 0.1 (0-0.2) k/uL Sodium 138 (137-145) mmol/L Potassium 3.8 (3.5-5.1) mmol/L Chloride 112 H (98-107) mmol/L Carbon Dioxide 17 L (22-30) mmol/L Anion Gap 9 mmol/L BUN 38 H (7-17) mg/dL Creatinine 3.08 H (0.52-1.04) mg/dL Est GFR (CKD-EPI)AfAm 15 (>60 ml/min/1.73 sqM) Est GFR (CKD-EPI)NonAf 13 (>60 ml/min/1.73 sqM) Glucose 85 (74-99) mg/dL Calcium 8.8 (8.4-10.2) mg/dL Total Bilirubin 0.5 (0.2-1.3) mg/dL AST 17 (14-36) U/L ALT 10 (4-34) U/L Alkaline Phosphatase 44 (38-126) U/L Total Protein 5.9 L (6.3-8.2) g/dL Albumin 3.3 L (3.5-5.0) g/dL Influenza Type A (PCR) Not Detected (Not Detectd) Influenza Type B (PCR) Not Detected (Not Detectd) RSV (PCR) Not Detected (Not Detectd) SARS-CoV-2 (PCR) Not Detected (Not Detectd) - EKG Data -: EKG Interpreted by Me EKG Comments: 12-lead Electrocardiogram Interpretation Note EKG was reviewed and interpreted by myself. 12-lead ECG performed at 0913 is interpreted by me as revealing normal sinus rhythm at a rate of 69 beats per minute. [place] is normal. Chronic left bundle branch block present. [place] interval is 196 ms, QRS durations 138 ms, QTc is 460 ms.. There were no ST or T wave abnormalities to suggest myocardial ischemia or injury. R wave progression across the precordium was satisfactory. By my interpretation this EKG is non- diagnostic for acute ischemia. Disposition Clinical Impression: COPD (chronic obstructive pulmonary disease), Pneumonia Disposition: ADMITTED IP TO THIS HOSP Condition: Stable Time of Disposition: 11:40
[2023-09-27] MEDS ORDERED: MAGNESIUM HYDROXIDE 2,400 MG/30 ML CUP PO PRN (12:39)
[2023-09-27] MEDS: AZITHROMYCIN 500 MG in SODIUM CHLORIDE 0.9% 250 ML IVPB STA (14:22)
[2023-09-27 14:59] LABS: Appearance,Urine Clear (Clear); Bacteria,Urine Rare /hpf; Bilirubin,Urine Negative (Negative); Blood,Urine Negative (Negative); Color,Urine Colorless; Glucose,Urine (UA) Negative (Negative); Hyaline Casts,Urine 1 /lpf (0-2); Ketones,Urine Negative (Negative); Leukocyte Esterase,Urine Negative (Negative); Nitrite,Urine Negative (Negative); Protein,Urine 1+ (Negative); RBC,Urine 1 /hpf (0-5); Specific Gravity,Urine 1.009 (1.001-1.035); Squamous Epithelial Cell,Urine 3 /hpf (0-4); Urobilinogen,Urine <2.0 mg/dL (<2.0); WBC,Urine <1 /hpf (0-5)
[2023-09-27] MEDS: IPRATROPIUM-ALBUTEROL 3 ML NEB INHALATION SCH ×2 (15:30→15:35)
--- NOTE | 2023-09-27 16:07 | P.CNPUL ---
History of Present Illness Consult date: 09/27/23 Requesting physician: Teo Madrid Reason for consult: dyspnea, abnormal CXR/CT Chief complaint: Shortness of breath, cough, congestion History of present illness: This is a pleasant 87-year-old female patient who resides at [facility]. She has a history of chronic kidney disease, former smoker, hypertension. She also had been having issues with dizziness and had sustained a fall yesterday and was seen here in the emergency room, CT scan revealed a large scalp hematoma over the left supraorbital forehead. No evidence of fracture. No intracranial hemorrhage. No evidence of acute cervical spine fracture, no sustained injuries and was discharged home. She had developed increasing shortness of breath, cough and congestion. X-ray reveals a left lower lobe consolidation and small bilateral pleural effusions superimposed on background COPD. White count 5.6. Hemoglobin 7.5. Platelets 199. Sodium 138. Potassium 3.8. Bicarb 17. BUN 38. Creatinine 3.08. Urinalysis clean. Viral screen negative. She is seen today in consultation in the emergency department. She is currently sitting up on the stretcher. Awake and alert in no acute distress. Maintaining O2 saturations in the 90s on room air. She does have significant ecchymosis on the bilateral face more so on the left. No fever or chills. She is afebrile. Hemodynamically stable. Review of Systems REVIEW OF SYSTEMS: CONSTITUTIONAL: Positive for dizziness and falls. Denies any recent significant weight loss or weight gain. EYES: Denies change in vision. EARS, NOSE, MOUTH, THROAT: Denies headaches, denies sore throat. CARDIOVASCULAR: Denies chest pain, palpitations or syncopal episodes. RESPIRATORY: Positive for shortness of breath, cough, congestion no hemoptysis. GASTROINTESTINAL: Denies change in appetite, denies abdominal pain GENITOURINARY: Denies hematuria, denies infections. MUSKULOSKELETAL: Denies pain, denies swelling. INTEGUMENTARY: Denies rash, denies eczema. NEUROLOGICAL: Denies recent memory loss, no recent seizure activity. PSYCHIATRIC: Denies anxiety, denies depression. HEMATOLOGIC/LYMPHATIC: Denies anemia, denies enlarged lymph nodes. Past Medical History Past Medical History: Hypertension Additional Past Medical History / Comment(s): kidney failure History of Any Multi-Drug Resistant Organisms: None Reported Past Surgical History: Joint Replacement Additional Past Surgical History / Comment(s): knees replaced Past Psychological History: No Psychological Hx Reported Smoking Status: Former smoker Past Alcohol Use History: Occasional Past Drug Use History: None Reported Medications and Allergies Home Medications Medication Instructions Recorded Confirmed Type Albuterol Sulfate [Albuterol 2 puff PO RT-Q4H PRN 06/23/23 09/27/23 History Sulfate Hfa] Acetaminophen Tab [Tylenol] 650 mg PO Q6HR PRN tab 06/29/23 09/27/23 Rx Folic Acid 1 mg PO DAILY #30 tab 06/29/23 09/27/23 Rx amLODIPine [Norvasc] 5 mg PO DAILY tab 06/29/23 09/27/23 Rx carvediloL [Coreg*] 12.5 mg PO BID-W/MEALS tab 06/29/23 09/27/23 Rx Cyanocobalamin (Vitamin B-12) 1,000 mcg PO DAILY 09/27/23 09/27/23 History [Vitamin B-12] Yolanda-Tussin Dm 10 ml PO Q6H PRN 09/27/23 09/27/23 History Magnesium Hydroxide [Milk of 2,400 mg PO DAILY PRN 09/27/23 09/27/23 History Magnesia] Megestrol [Megace] 400 mg PO DAILY 09/27/23 09/27/23 History Multivit-Min/Iron/Folic/Lutein 1 tab PO DAILY 09/27/23 09/27/23 History [Centrum Silver Women Tablet] Na Phos,M-B/Na Phos,Di-Ba [Fleet 133 ml RECTAL DAILY PRN 09/27/23 09/27/23 History Adult] Sennosides-Docusate Sodium 1 tab PO BID PRN 09/27/23 09/27/23 History [Senokot-S] Torsemide [Demadex] 10 mg PO DAILY 09/27/23 09/27/23 History hydrALAZINE HCL [Apresoline] 50 mg PO BID-W/MEALS 09/27/23 09/27/23 History Allergies Allergy/AdvReac Type Severity Reaction Status Date / Time No Known Allergies Allergy Verified 09/27/23 11:56 Physical Exam Vitals: Vital Signs Temp Pulse Resp BP Pulse Ox 09/27/23 15:42 72 09/27/23 15:31 75 09/27/23 15:29 76 16 148/70 96 09/27/23 14:30 75 16 152/73 96 09/27/23 12:28 71 14 177/79 95 09/27/23 11:25 66 09/27/23 11:16 68 09/27/23 09:13 98.4 F 71 18 149/69 97 Intake and Output 09/27/23 09/27/23 09/27/23 06:59 14:59 22:59 Other: Weight 48.081 kg GENERAL EXAM: Alert, very pleasant oriented 87-year-old female, on room air, comfortable in no apparent distress. HEAD: Normocephalic. Evidence of trauma to the bilateral face more so on the left. Status post fall EYES: Normal reaction of pupils, equal size. NOSE: Clear with pink turbinates. THROAT: No erythema or exudates. NECK: No masses, no JVD. CHEST: No chest wall deformity. LUNGS: Equal air entry with crackles in the left base. CVS: S1 and S2 normal with no audible murmur, regular rhythm. ABDOMEN: No hepatosplenomegaly, normal bowel sounds, no guarding or rigidity. SPINE: No scoliosis or deformity SKIN: No rashes CENTRAL NERVOUS SYSTEM: No focal deficits, tone is normal in all 4 extremities. EXTREMITIES: There is no peripheral edema. No clubbing, no cyanosis. Periphe ral pulses are intact. Results - Laboratory Findings CBC and BMP: 09/27/23 09:35 09/27/23 09:35 Abnormal lab findings: Abnormal Labs 09/27/23 09/27/23 09/27/23 09:35 09:35 14:06 RBC 2.73 L Hgb 7.5 L Hct 23.8 L RDW 15.9 H Chloride 112 H Carbon Dioxide 17 L BUN 38 H Creatinine 3.08 H Total Protein 5.9 L Albumin 3.3 L Urine Protein 1+ H Urine Bacteria Rare H - Diagnostic Findings Chest x-ray: image reviewed Assessment and Plan Assessment: Dyspnea with cough and congestion secondary to possible early pneumonia versus atelectasis of the left lung base Recently seen in the emergency room yesterday status post fall with injury and ecchymosis to the face. No intracranial bleed. No cervical fractures Recent episodes of dizziness of unclear etiology Chronic kidney disease, current creatinine 3.08 Chronic anemia, current hemoglobin 7.5 History of hypertension Former smoker Suspect mild chronic obstructive pulmonary disease Plan: The patient was seen and evaluated Chest x-ray, labs and medications reviewed Check a procalcitonin Check a pro BNP level Continue antibiotics for now Continue DuoNeb inhalations, Solu-Medrol Obtain an ultrasound of the left chest Currently stable and on room air We will continue to follow and make further recommendations based on her clinical status I have personally seen and examined the patient, performed the documentation and the assessment and plan as written. Number of minutes spent on the visit: 20.
[2023-09-27] MEDS: carvediloL 12.5 MG TAB PO SCH (16:26)
[2023-09-27] MEDS: hydrALAZINE HCL 50 MG TAB PO SCH (16:26)
[2023-09-27] MEDS ORDERED: SENNOSIDES-DOCUSATE SODIUM 1 EACH TAB PO PRN (18:32)
[2023-09-27] MEDS: methylPREDNISolone SOD SUCCI 40 MG/ML 1 ML VIAL IV SCH (20:02)
--- NOTE | 2023-09-27 22:55 | P.HPIM ---
History of Present Illness H&P Date: 09/27/23 HISTORY OF PRESENT ILLNESS: 87-year-old one of my office patient with longstanding history of hypertension, hyperlipidemia, advanced chronic kidney disease stage IV, who also has chronic degenerative disc disease, chronic arthritis, chronic anemia with chronic edema Leydi sustained a fall on 09/26/2023 was seen in the emergency department story apparently for that she fell at home and hit her head on a hard floor developed slight swelling in the left thigh with large bruises she did not lose any consciousness developed to have mild headache discomfort and contusion on the forehead under the left eye and the right eye as well. Ended up coming to the emergency department by EMS her blood pressure was 199/78 pulse ox 97 percentile temperature was normal. Ended up having head and cervical spine CT showed large scalp hematoma over the left supraorbital forehead with no evidence of calvarial fracture no acute intracranial hemorrhage or midline shift or mass effect. Atrophy and chronic microvascular ischemic change only. Cervical spine showed moderate cervical spondylosis there is a slight emphysematous change on the top part of the lung with mild pleural calcification as well similar to clear exposure to asbestos with no pneumothorax. CT showed periorbital soft tissue thickening on the left with continuation into the left supraorbital scalp and partially imaged hematoma. Otherwise intact CT with no orbital fracture or evidence of major injury. She was treated apparently and sent home at the time. The patient returned at noon time to the emergency department today via EMS because of significant shortness of breath with cough and slightly bit respiratory distress she will open blow out a large patient usually does albuterol inhaler with a worsening dyspnea and shortness of breath with mild hypoxia and presented to the emergency department almost 24 hours. To the previous visit this time with her dyspnea and shortness of breath chest x-ray showed left lower lobe consolidation with small bilateral pleural effusion superimposed on background of COPD correlate with pneumonia. Stable appearing thoracic aortic ectasia or aneurysm. Laboratory value shows drop in hemoglobin 7.5 with white blood cell of 5.6, creatinine is quite bit worse at 3.08 with GFR running at 13. BNP was 20,300 UA was negative COVID RSV and influenza were all negative. So patient was diagnosed with slight respiratory distress consistent with pneumonia and worsening fluid overload with most likely congestive heart failure exacerbation and worsening renal function with chronic and acute anemia. REVIEW OF SYSTEMS: CONSTITUTIONAL: Well-developed mild respiratory distress EYES: Slight swelling hematoma and major bruise over the left eye more than the right side with entire face and forehead covered with bruises from her injury yesterday with slight hematoma.. EARS, NOSE, MOUTH, THROAT, and FACE: No sore throat, lymphadenopathy, carotid bruits or deformity. RESPIRATORY: Positive shortness of breath cough or wheezes. CARDIOVASCULAR: Positive PND orthopnea palpitation. GASTROINTESTINAL: Slight abdominal discomfort with nausea no vomiting. GENITOURINARY: Decreased urine output with chronic kidney disease. INTEGUMENT/BREAST: Negative for any muscular injury with mild osteoarthritis.. HEMATOLOGIC/LYMPHATIC: Chronic anemia with hematoma and slight bruises on the facial area. MUSCULOSKELTAL: Negative for Myalgia or arthralgia. NEURLOGICAL: Slight confusion with worsening mentation. BEHAVIORAL/PSYCH: Negative. ENDOCRINE: Negative. PHYSICAL EXAMINATION: General Appearance: Alert, cooperative, slightly bit confused mild respiratory distress. Neck HEENT: Very large hematoma and bruise over the left eye forehead the right eye and to the cheek area on the facial area. Slight stiffness and discomfort in the neck area as well. Lungs: Decreased breath sound bilaterally with fine crackles bilaterally but worsening in the left base up to the middle of her lung with rhonchi and slight expiratory wheezes. Chest Wall: Decreased expansion with deep inspiration no tenderness and no deformity was found on exam, no costochondral pain or discomfort. Heart: Regular rate and rhythm, S1, S2 positive systolic murmur mild tachycardia. Back: Symmetric, slight curvature with mild scoliosis. Abdomen: Soft, non-tender, bowel sounds active positive midepigastric discomfort Extremities: Chronic edema with generalized vascular cellulitis of the lower extremity. Pulses: 2+ and symmetric. Skin: Skin color, texture, tugor normal, no rashes or lesions. Neurologic: Alert oriented with slight confusion cranial nerves II to XII intact positive generalized weakness with abnormal balance and gait. ASSESSMENT AND PLAN: _Severe dyspnea and shortness of breath: Combination of left lower lobe pneumonia, fluid overload and CHF, anemia, and mild COPD. _Left lower lobe pneumonia: Will start patient on Rocephin along with azithromycin Solu-Medrol and updraft treatment, patient be seen pulmonary. _Congestive heart failure with mild exacerbation most likely diastolic dysfunction no recent study or testing of the heart muscle echocardiogram was order BNP was over 20,000 continue patient on IV diuretics when kidney function improved some continue to watch for any fluid overload. _COPD with remote history of smoking: Can benefit from remain on DuoNeb along with Pulmicort, with a pneumonia patient will have worsening reactive airway being on Solu-Medrol be helpful as well. _Iron deficiency anemia with worsening anemia compared to before might benefit from iron infusion no blood transfusion required keep watching for GI bleed. _Stage IV chronic kidney disease with worsening kidney function patient is a predialysis at this point will consult nephrology continue to watch for any worsening signs and symptoms. _Closed head trauma with large hematoma of the left forehead, orbit and right side area, still having slight headache from the trauma with mild bruise neck continue Tylenol and muscle relaxer on as-needed basis. _Altered mental status with worsening confusion: She had slight underlying memory loss with a close head trauma become slightly bit worse, keep watching for any worsening component and at some point patient probably will benefit from smaller dose of donepezil or rivastigmine. _Hypertension: With urgent blood pressure lately, continue amlodipine 5 mg a day, Coreg 12.5 mg twice a day, hydralazine 50 mg twice a day and continue torsemide at 10 mg daily. _GI prophylaxis: The patient will be on pantoprazole 40 mg daily. DVT prophylaxis: Knee-high LANIE hose with early mobilization. CODE STATUS: DO NOT RESUSCITATE. Admit patient to the inpatient service for more than 2 night stay. Past Medical History Past Medical History: Hypertension Additional Past Medical History / Comment(s): kidney failure History of Any Multi-Drug Resistant Organisms: None Reported Past Surgical History: Joint Replacement Additional Past Surgical History / Comment(s): knees replaced Past Psychological History: No Psychological Hx Reported Smoking Status: Former smoker Past Alcohol Use History: Occasional Past Drug Use History: None Reported Medications and Allergies Home Medications Medication Instructions Recorded Confirmed Type Albuterol Sulfate [Albuterol 2 puff PO RT-Q4H PRN 06/23/23 09/27/23 History Sulfate Hfa] Acetaminophen Tab [Tylenol] 650 mg PO Q6HR PRN tab 06/29/23 09/27/23 Rx Folic Acid 1 mg PO DAILY #30 tab 06/29/23 09/27/23 Rx amLODIPine [Norvasc] 5 mg PO DAILY tab 06/29/23 09/27/23 Rx carvediloL [Coreg*] 12.5 mg PO BID-W/MEALS tab 06/29/23 09/27/23 Rx Cyanocobalamin (Vitamin B-12) 1,000 mcg PO DAILY 09/27/23 09/27/23 History [Vitamin B-12] Yolanda-Tussin Dm 10 ml PO Q6H PRN 09/27/23 09/27/23 History Magnesium Hydroxide [Milk of 2,400 mg PO DAILY PRN 09/27/23 09/27/23 History Magnesia] Megestrol [Megace] 400 mg PO DAILY 09/27/23 09/27/23 History Multivit-Min/Iron/Folic/Lutein 1 tab PO DAILY 09/27/23 09/27/23 History [Centrum Silver Women Tablet] Na Phos,M-B/Na Phos,Di-Ba [Fleet 133 ml RECTAL DAILY PRN 09/27/23 09/27/23 History Adult] Sennosides-Docusate Sodium 1 tab PO BID PRN 09/27/23 09/27/23 History [Senokot-S] Torsemide [Demadex] 10 mg PO DAILY 09/27/23 09/27/23 History hydrALAZINE HCL [Apresoline] 50 mg PO BID-W/MEALS 09/27/23 09/27/23 History Allergies Allergy/AdvReac Type Severity Reaction Status Date / Time No Known Allergies Allergy Verified 09/27/23 11:56 Physical Exam Vitals: Vital Signs Temp Pulse Pulse Resp BP BP Pulse Ox 09/27/23 16:30 98.5 F 76 16 148/68 96 09/27/23 15:42 72 09/27/23 15:31 75 09/27/23 15:29 76 16 148/70 96 09/27/23 14:30 75 16 152/73 96 09/27/23 12:28 71 14 177/79 95 09/27/23 11:25 66 09/27/23 11:16 68 09/27/23 09:13 98.4 F 71 18 149/69 97 Intake and Output 09/27/23 09/27/23 09/27/23 06:59 14:59 22:59 Other: Weight 48.081 kg 48.081 kg Results CBC & Chem 7: 09/27/23 09:35 09/27/23 09:35 Labs: Abnormal Lab Results - Last 24 Hours (Table) 09/27/23 09/27/23 09/27/23 Range/Units 09:35 09:35 14:06 RBC 2.73 L (3.80-5.40) m/uL Hgb 7.5 L (11.4-16.0) gm/dL Hct 23.8 L (34.0-46.0) % RDW 15.9 H (11.5-15.5) % Chloride 112 H (98-107) mmol/L Carbon Dioxide 17 L (22-30) mmol/L BUN 38 H (7-17) mg/dL Creatinine 3.08 H (0.52-1.04) mg/dL Total Protein 5.9 L (6.3-8.2) g/dL Albumin 3.3 L (3.5-5.0) g/dL Urine Protein 1+ H (Negative) Urine Bacteria Rare H (None) /hpf Thrombosis Risk Factor Assmnt - Choose All That Apply Each Risk Factor Represents 3 Points: Age 75 years or older Thrombosis Risk Factor Assessment Total Risk Factor Score: 3 Thrombosis Risk Factor Assessment Level: Moderate Risk
[2023-09-28] MEDS: PANTOPRAZOLE 40 MG TABLET PO SCH (06:17)
--- NOTE | 2023-09-28 06:27 | US ---
EXAMINATION TYPE: US chest DATE OF EXAM: 09/27/2023 COMPARISON: NONE CLINICAL INDICATION: Female, 87 years old with history of Markings for thoracentesis by pulmonary sta ff; markings TECHNIQUE: Targeted ultrasound of the posterior lower bilateral hemithoraces was performed by the dora stovall. Dictating radiologist was not present. EXAM MEASUREMENTS: Right Pleural Effusion pocket size: 0 cm Left Pleural Effusion pocket size: 7.3 cm Left skin surface to fluid distance: 1.9 cm Right side NOT marked for possible thoracentesis outside the dept. Left side marked for possible thoracentesis outside the dept. Pulmonologists are able to review the images in the patient?s EMR. IMPRESSION: Left pleural effusion, with the left side marked for possible thoracentesis outside the department.
--- NOTE | 2023-09-28 07:31 | P.PN ---
Subjective Progress Note Date: 09/28/23 HISTORY OF PRESENT ILLNESS: 87-year-old one of my office patient with longstanding history of hypertension, hyperlipidemia, advanced chronic kidney disease stage IV, who also has chronic degenerative disc disease, chronic arthritis, chronic anemia with chronic edema Leydi sustained a fall on 09/26/2023 was seen in the emergency department story apparently for that she fell at home and hit her head on a hard floor developed slight swelling in the left thigh with large bruises she did not lose any consciousness developed to have mild headache discomfort and contusion on the forehead under the left eye and the right eye as well. Ended up coming to the emergency department by EMS her blood pressure was 199/78 pulse ox 97 percentile temperature was normal. Ended up having head and cervical spine CT showed large scalp hematoma over the left supraorbital forehead with no evidence of calvarial fracture no acute intracranial hemorrhage or midline shift or mass effect. Atrophy and chronic microvascular ischemic change only. Cervical spine showed moderate cervical spondylosis there is a slight emphysematous change on the top part of the lung with mild pleural calcification as well similar to clear exposure to asbestos with no pneumothorax. CT showed periorbital soft tissue thickening on the left with continuation into the left supraorbital scalp and partially imaged hematoma. Otherwise intact CT with no orbital fracture or evidence of major injury. She was treated apparently and sent home at the time. The patient returned at noon time to the emergency department today via EMS because of significant shortness of breath with cough and slightly bit respiratory distress she will open blow out a large patient usually does albuterol inhaler with a worsening dyspnea and shortness of breath with mild hypoxia and presented to the emergency department almost 24 hours. To the previous visit this time with her dyspnea and shortness of breath chest x-ray showed left lower lobe consolidation with small bilateral pleural effusion superimposed on background of COPD correlate with pneumonia. Stable appearing thoracic aortic ectasia or aneurysm. Laboratory value shows drop in hemoglobin 7.5 with white blood cell of 5.6, creatinine is quite bit worse at 3.08 with GFR running at 13. BNP was 20,300 UA was negative COVID RSV and influenza were all negative. So patient was diagnosed with slight respiratory distress consistent with pneumonia and worsening fluid overload with most likely congestive heart failure exacerbation and worsening renal function with chronic and acute anemia. 09/28/2023: Patient slept the night doing well no complication, continued to have slight cough and mild shortness of breath, legionnaire testing from yesterday came back to be negative, blood test this morning still pending. Ultrasound of the lung shows slight pleural effusion on the left side pulmonary might do thoracentesis today to drain it. Will start physical therapy and allow social media campaign manager to take some time to talk to patient and family to see if she is interested to go to SNF or can go back to [facility] with help with physical therapy and home care. REVIEW OF SYSTEMS: CONSTITUTIONAL: Well-developed mild respiratory distress EYES: Slight swelling hematoma and major bruise over the left eye more than the right side with entire face and forehead covered with bruises from her injury yesterday with slight hematoma.. EARS, NOSE, MOUTH, THROAT, and FACE: No sore throat, lymphadenopathy, carotid bruits or deformity. RESPIRATORY: Positive shortness of breath cough or wheezes. CARDIOVASCULAR: Positive PND orthopnea palpitation. GASTROINTESTINAL: Slight abdominal discomfort with nausea no vomiting. GENITOURINARY: Decreased urine output with chronic kidney disease. INTEGUMENT/BREAST: Negative for any muscular injury with mild osteoarthritis.. HEMATOLOGIC/LYMPHATIC: Chronic anemia with hematoma and slight bruises on the facial area. MUSCULOSKELTAL: Negative for Myalgia or arthralgia. NEURLOGICAL: Slight confusion with worsening mentation. BEHAVIORAL/PSYCH: Negative. ENDOCRINE: Negative. PHYSICAL EXAMINATION: General Appearance: Alert, cooperative, slightly bit confused mild respiratory distress. Neck HEENT: Very large hematoma and bruise over the left eye forehead the right eye and to the cheek area on the facial area. Slight stiffness and discomfort in the neck area as well. Lungs: Decreased breath sound bilaterally with fine crackles bilaterally but worsening in the left base up to the middle of her lung with rhonchi and slight expiratory wheezes. Chest Wall: Decreased expansion with deep inspiration no tenderness and no deformity was found on exam, no costochondral pain or discomfort. Heart: Regular rate and rhythm, S1, S2 positive systolic murmur mild tachycardia. Back: Symmetric, slight curvature with mild scoliosis. Abdomen: Soft, non-tender, bowel sounds active positive midepigastric discomfort Extremities: Chronic edema with generalized vascular cellulitis of the lower extremity. Pulses: 2+ and symmetric. Skin: Skin color, texture, tugor normal, no rashes or lesions. Neurologic: Alert oriented with slight confusion cranial nerves II to XII intact positive generalized weakness with abnormal balance and gait. ASSESSMENT AND PLAN: _Severe dyspnea and shortness of breath: Combination of left lower lobe pneumonia, fluid overload and CHF, anemia, and mild COPD. And slight pleural effusion on the left side. _Left lower lobe pneumonia: Will start patient on Rocephin along with azithromycin Solu-Medrol and updraft treatment, patient be seen pulmonary. _Left-sided pleural effusion: Might require thoracentesis was marked with ultrasound up to pulmonary today if they want to do bedside thoracentesis. _Congestive heart failure with mild exacerbation most likely diastolic dysfunction no recent study or testing of the heart muscle echocardiogram was order BNP was over 20,000 continue patient on IV diuretics when kidney function improved some continue to watch for any fluid overload. Waiting for the final result with an echo with her kidney function options are limited with medication but is still can use diuretics along with ARB. _COPD with remote history of smoking: Can benefit from remain on DuoNeb along with Pulmicort, with a pneumonia patient will have worsening reactive airway being on Solu-Medrol be helpful as well. _Iron deficiency anemia with worsening anemia compared to before might benefit from iron infusion no blood transfusion required keep watching for GI bleed. _Stage IV chronic kidney disease with worsening kidney function patient is a predialysis at this point will consult nephrology continue to watch for any worsening signs and symptoms. _Closed head trauma with large hematoma of the left forehead, orbit and right side area, still having slight headache from the trauma with mild bruise neck continue Tylenol and muscle relaxer on as-needed basis. _Altered mental status with worsening confusion: She had slight underlying memory loss with a close head trauma become slightly bit worse, keep watching for any worsening component and at some point patient probably will benefit from smaller dose of donepezil or rivastigmine. _Hypertension: With urgent blood pressure lately, continue amlodipine 5 mg a day, Coreg 12.5 mg twice a day, hydralazine 50 mg twice a day and continue torsemide at 10 mg daily. Prognosis: Fair. Discussion: Patient lives in [facility], have some help and assisted around, after her last hospitalization 2 months ago she was in [facility] rehab for few weeks and has done well this time the patient is able to ambulate walk and do well with home therapy she should be able to probably go back to [email or web address] with some help with PT otherwise if social media campaign manager and PT feels better option for patient to go to SNF she might be able to go to rehab in one of the [facility]. Objective - Vital Signs Vital signs: Vital Signs Temp 97.9 F 09/28/23 01:58 Pulse 75 09/28/23 01:58 Resp 19 09/28/23 01:58 BP 174/85 09/28/23 01:58 Pulse Ox 98 09/28/23 01:58 FiO2 Intake & Output 09/27/23 09/27/23 09/28/23 06:59 18:59 06:59 Weight 48.081 kg Other: Voiding Method Toilet # Voids 1 - Labs CBC & Chem 7: 09/27/23 09:35 09/27/23 09:35 Labs: Abnormal Lab Results - Last 24 Hours (Table) 09/27/23 09/27/23 09/27/23 Range/Units 09:35 09:35 14:06 RBC 2.73 L (3.80-5.40) m/uL Hgb 7.5 L (11.4-16.0) gm/dL Hct 23.8 L (34.0-46.0) % RDW 15.9 H (11.5-15.5) % Chloride 112 H (98-107) mmol/L Carbon Dioxide 17 L (22-30) mmol/L BUN 38 H (7-17) mg/dL Creatinine 3.08 H (0.52-1.04) mg/dL Total Protein 5.9 L (6.3-8.2) g/dL Albumin 3.3 L (3.5-5.0) g/dL Urine Protein 1+ H (Negative) Urine Bacteria Rare H (None) /hpf
--- NOTE | 2023-09-28 09:26 | XR ---
EXAMINATION TYPE: XR chest 1V portable DATE OF EXAM: 09/28/2023 COMPARISON: 09/27/2023 HISTORY: Postthoracentesis TECHNIQUE: Single frontal view of the chest is obtained. FINDINGS: No sizable pneumothorax. Interval marked reduction in amount of pleural fluid with tiny am ount of residual consolidation and pleural fluid. Tiny right pleural effusion. Underlying COPD. Ather osclerotic change aorta. Diffuse osteopenia and arthropathy of the shoulders. Degenerative changes fi nding. IMPRESSION: 1. No pneumothorax. 2. COPD with bilateral small pleural effusion and left basilar consolidation.
[2023-09-28] MEDS: CYANOCOBALAMIN 500 MCG TAB PO SCH (09:42)
[2023-09-28] MEDS: AZITHROMYCIN 500 MG TAB PO SCH (09:42)
[2023-09-28] MEDS: MEGESTROL 400 MG/10 ML CUP PO SCH (09:43)
[2023-09-28] MEDS: amLODIPine 5 MG TAB PO SCH (09:43)
[2023-09-28] MEDS: FOLIC ACID 1 MG TAB PO SCH (09:43)
[2023-09-28] MEDS: TORSEMIDE 20 MG TAB PO SCH (09:43)
[2023-09-28] MEDS: MULTIVITAMINS, THERA 1 EACH TAB PO SCH (09:43)
[2023-09-28 11:54] LABS: ALT 13 U/L (8-44); AST 14 U/L (13-35); Albumin 3.8 g/dL (3.8-4.9); Albumin/Globulin Ratio 1.73 Ratio (1.60-3.17); Alkaline Phosphatase 43 U/L (41-126); BUN/Creat Ratio 14.17 Ratio (12.00-20.00); Blood Urea Nitrogen 42.5 mg/dL (9.0-27.0); Calcium 8.8 mg/dL (8.7-10.3); Carbon Dioxide 17.5 mmol/L (21.6-31.8); Chloride 105 mmol/L (96-109); Globulin 2.2 g/dL (1.6-3.3); Glucose 125 mg/dL (70-110); Potassium 4.2 mmol/L (3.5-5.5); Sodium 136 mmol/L (135-145); Total Bilirubin <0.2 mg/dL (0.3-1.2)
--- NOTE | 2023-09-28 12:06 | P.NPCON ---
History of Present Illness - Reason for Consult chronic renal failure - History of Present Illness Reason for consultation: Chronic kidney disease History of present illness: Patient is 87-year-old female seen in renal consultation for chronic kidney disease. Patient has chronic kidney disease stage V with baseline creatinine near 3. Etiology is nephrosclerosis. Patient came to the hospital due to sh ortness of breath. Patient states she fell about 2 days ago and was evaluated at the hospital. She did bruise her face. After being discharged she developed a dry cough and shortness of breath and came to the hospital. She tested negative for influenza, RSV as well as COVID-19. Chest x-ray showed left lower lobe consolidation and pleural effusions. She underwent left-sided thoracentesis this morning. She is currently on room air. No vomiting or diarrhea. Denies use of nonsteroidals. Has been voiding. Denies gross hematuria or dysuria. Denies use of nonsteroidals. Patient does have history of diabetes. Denies history of coronary artery disease. Vital signs are stable. General: No acute distress. HEENT: Facial bruising noted. LUNGS: No audible rhonchi or wheezes. HEART: Rate and Rhythm are regular. ABDOMEN: Nontender. EXTREMITITES: No edema. Past Medical History Past Medical History: Hypertension Additional Past Medical History / Comment(s): kidney failure History of Any Multi-Drug Resistant Organisms: None Reported Past Surgical History: Joint Replacement Additional Past Surgical History / Comment(s): knees replaced Past Psychological History: No Psychological Hx Reported Smoking Status: Former smoker Past Alcohol Use History: Occasional Past Drug Use History: None Reported Medications and Allergies Home Medications Medication Instructions Recorded Confirmed Type Albuterol Sulfate [Albuterol 2 puff PO RT-Q4H PRN 06/23/23 09/27/23 History Sulfate Hfa] Acetaminophen Tab [Tylenol] 650 mg PO Q6HR PRN tab 06/29/23 09/27/23 Rx Folic Acid 1 mg PO DAILY #30 tab 06/29/23 09/27/23 Rx amLODIPine [Norvasc] 5 mg PO DAILY tab 06/29/23 09/27/23 Rx carvediloL [Coreg*] 12.5 mg PO BID-W/MEALS tab 06/29/23 09/27/23 Rx Cyanocobalamin (Vitamin B-12) 1,000 mcg PO DAILY 09/27/23 09/27/23 History [Vitamin B-12] Yolanda-Tussin Dm 10 ml PO Q6H PRN 09/27/23 09/27/23 History Magnesium Hydroxide [Milk of 2,400 mg PO DAILY PRN 09/27/23 09/27/23 History Magnesia] Megestrol [Megace] 400 mg PO DAILY 09/27/23 09/27/23 History Multivit-Min/Iron/Folic/Lutein 1 tab PO DAILY 09/27/23 09/27/23 History [Centrum Silver Women Tablet] Na Phos,M-B/Na Phos,Di-Ba [Fleet 133 ml RECTAL DAILY PRN 09/27/23 09/27/23 History Adult] Sennosides-Docusate Sodium 1 tab PO BID PRN 09/27/23 09/27/23 History [Senokot-S] Torsemide [Demadex] 10 mg PO DAILY 09/27/23 09/27/23 History hydrALAZINE HCL [Apresoline] 50 mg PO BID-W/MEALS 09/27/23 09/27/23 History Allergies Allergy/AdvReac Type Severity Reaction Status Date / Time No Known Allergies Allergy Verified 09/27/23 11:56 Physical Exam Vitals: Vital Signs Temp Pulse Pulse Pulse Resp BP BP 09/28/23 11:22 80 09/28/23 11:11 76 09/28/23 07:51 72 09/28/23 07:39 75 09/28/23 07:00 97.9 F 77 16 165/61 09/28/23 01:58 97.9 F 75 19 09/27/23 20:49 68 09/27/23 20:38 68 09/27/23 20:00 98.0 F 73 20 09/27/23 16:30 98.5 F 76 16 148/68 09/27/23 15:42 72 09/27/23 15:31 75 09/27/23 15:29 76 16 148/70 09/27/23 14:30 75 16 152/73 09/27/23 12:28 71 14 177/79 BP Pulse Ox 09/28/23 11:22 09/28/23 11:11 09/28/23 07:51 09/28/23 07:39 09/28/23 07:00 95 09/28/23 01:58 174/85 98 09/27/23 20:49 09/27/23 20:38 09/27/23 20:00 150/71 94 L 09/27/23 16:30 96 09/27/23 15:42 09/27/23 15:31 09/27/23 15:29 96 09/27/23 14:30 96 09/27/23 12:28 95 Intake and Output 09/27/23 09/28/23 09/28/23 22:59 06:59 14:59 Other: Voiding Method Toilet # Voids 1 3 1 # Bowel Movements 2 1 Weight 48.081 kg Results - Lab Results Most recent lab results Calcium 8.8 mg/dL (8.7-10.3) 09/28/23 05:55 09/27/23 09:35 09/28/23 05:55 Assessment and Plan Plan: Assessment: 1. Chronic kidney disease stage V with baseline creatinine near 3 secondary to nephrosclerosis. GFR near baseline. 2. Status post recent fall with facial bruising. 3. Metabolic acidosis secondary to chronic kidney disease. 4. Anemia of chronic kidney disease. Rule out iron deficiency. 5. Hypertension with chronic kidney disease. 6. Fluid overload status post left-sided thoracentesis this morning. 7. COPD exacerbation. Also on antibiotics for possible pneumonia. 8. Diabetes mellitus. 9. Acute on chronic diastolic CHF with moderate aortic insufficiency and mild to moderate mitral regurgitation. Plan: Maintain torsemide. Increase dose to 20 mg once daily. Low-salt diet. Check iron studies. Add oral bicarb. Check orthostatic vital signs. Avoid nephrotoxins. Continue to monitor renal function and urine output. Patient has refused any form of renal replacement therapy if needed. Thank you for the consultation. I will continue to follow the patient with you during her hospital stay.
[2023-09-28 12:11] LABS: HCT 22.6 % (37.2-46.3); HGB 7.2 g/dL (12.0-15.0); MCH 27.6 pg (27.0-32.0); MCHC 31.9 g/dL (32.0-37.0); MCV 86.6 FL (80.0-97.0); Mean Platelet Volume 10.9 FL (9.5-12.2); NRBC Per 100 WBC 0 X 10*3/uL (0.00-0.01); Platelet Count 211 X 10*3/uL (140-440); RBC 2.61 X 10*6/uL (4.10-5.20); RDW 15.7 % (11.5-14.5); WBC 5.35 X 10*3/uL (4.50-10.00)
[2023-09-28] MEDS: SODIUM BICARBONATE TAB 650 MG TAB PO SCH (12:53)
--- NOTE | 2023-09-28 13:23 | OP ---
OPERATIVE REPORT DATE OF SERVICE : PROCEDURE PERFORMED: Left-sided thoracentesis. PREOPERATIVE DIAGNOSIS: Left pleural effusion. POSTOPERATIVE DIAGNOSIS: Left pleural effusion. ANESTHESIA USED: 2 mL of 1% lidocaine. DESCRIPTION OF PROCEDURE: The patient was placed in a sitting upright position, the area below the left scapula was prepared in a sterile fashion and drapes were applied. The area of the fluid was earlier localized by ultrasound, and the area correlated to the 8th intercostal space and tip of the scapula. The area was locally anesthetized, and it was prior prepared in a sterile fashion. Then, a 26-gauge needle was inserted at the same site into the pleural space, fluid was localized. 10 mL of the fluid was drained with a needle, then a small tiny incision was made at the same site, then a standard thoracentesis catheter and needle were used. Needle was inserted at the same site, and the catheter was advanced over the needle and the needle was pulled out of the pleural space. Freely flowing fluid removed, roughly 325 mL of slightly yellow and freely flowing fluid removed from the left pleural space. The procedure was well tolerated. No complications. No pneumothorax post procedure, and the fluid was sent for different diagnostic studies. MMODL / IJN: [id number] /
--- NOTE | 2023-09-28 14:10 | P.PN ---
Subjective Progress Note Date: 09/28/23 This is a pleasant 87-year-old female patient who resides at [facility]. She has a history of chronic kidney disease, former smoker, hypertension. She also had been having issues with dizziness and had sustained a fall yesterday and was seen here in the emergency room, CT scan revealed a large scalp hematoma over the left supraorbital forehead. No evidence of fracture. No intracranial hemorrhage. No evidence of acute cervical spine fracture, no sustained injuries and was discharged home. She had developed increasing shortness of breath, cough and congestion. X-ray reveals a left lower lobe consolidation and small bilateral pleural effusions superimposed on background COPD. White count 5.6. Hemoglobin 7.5. Platelets 199. Sodium 138. Potassium 3.8. Bicarb 17. BUN 38. Creatinine 3.08. Urinalysis clean. Viral screen negative. She is seen today in consultation in the emergency department. She is currently sitting up on the stretcher. Awake and alert in no acute distress. Maintaining O2 saturations in the 90s on room air. She does have significant ecchymosis on the bilateral face more so on the left. No fever or chills. She is afebrile. Hemodynamically stable. The patient is seen today September 28, 2023 in follow-up on the regular medical floor. She is currently sitting up at the bedside. Awake and alert in no acute distress. Breathing a bit easier today compared to yesterday. Maintaining good O2 saturations in the 90s on room air. Her proBNP was over 20,000. Her procalcitonin was 0.09. She is still on ceftriaxone and azithromycin. Ultrasound of the left chest did show a 7.2 cm pocket. She had undergone left- sided thoracentesis today with Dr. Poole and approximately 325 MLS of cloudy yellow fluid was returned. Fluid analysis and cytology pending. White count 5.3. Hemoglobin 7.2. Platelets 211. Sodium 136. Potassium 4.2. Bicarb 18. BUN 43. Creatinine 3.0. Glucose 125. Troponin was negative x 1. She remains on oral diuretics. Objective - Vital Signs Vital signs: Vital Signs Temp 97.9 F 09/28/23 07:00 Pulse 80 09/28/23 11:22 Resp 16 09/28/23 07:00 BP 165/61 09/28/23 07:00 Pulse Ox 95 03/28/24 07:00 FiO2 Intake & Output 09/27/23 09/28/23 09/28/23 18:59 06:59 18:59 Weight 48.081 kg Other: Voiding Method Toilet # Voids 3 1 # Bowel Movements 2 1 - Exam GENERAL EXAM: Alert, oriented 87-year-old female, on room air, in no apparent distress. HEAD: Normocephalic. Evidence of trauma to the bilateral face more so on the left. Status post fall EYES: Normal reaction of pupils, equal size. NOSE: Clear with pink turbinates. THROAT: No erythema or exudates. NECK: No masses, no JVD. CHEST: No chest wall deformity. LUNGS: Equal air entry with crackles in the left base. CVS: S1 and S2 normal with no audible murmur, regular rhythm. ABDOMEN: No hepatosplenomegaly, normal bowel sounds, no guarding or rigidity. SPINE: No scoliosis or deformity SKIN: No rashes CENTRAL NERVOUS SYSTEM: No focal deficits, tone is normal in all 4 extremities. EXTREMITIES: There is no peripheral edema. No clubbing, no cyanosis. Peripheral pulses are intact. - Labs CBC & Chem 7: 09/28/23 05:55 09/28/23 05:55 Labs: Abnormal Lab Results - Last 24 Hours (Table) 09/27/23 09/28/23 09/28/23 Range/Units 14:06 05:55 05:55 RBC 2.61 L (4.10-5.20) X 10*6/uL Hgb 7.2 L (12.0-15.0) g/dL Hct 22.6 L (37.2-46.3) % MCHC 31.9 L (32.0-37.0) g/dL RDW 15.7 H (11.5-14.5) % Carbon Dioxide 17.5 L (21.6-31.8) mmol/L Anion Gap 13.50 H (4.00-12.00) mmol/L BUN 42.5 H (9.0-27.0) mg/dL Creatinine 3.0 H (0.6-1.5) mg/dL Est GFR (CKD-EPI) 14 L (>=60) Glucose 125 H (70-110) mg/dL Total Bilirubin <0.2 L (0.3-1.2) mg/dL Total Protein 6.0 L (6.2-8.2) g/dL Urine Protein 1+ H (Negative) Urine Bacteria Rare H (None) /hpf Assessment and Plan Assessment: Dyspnea secondary to left sided pleural effusion. proBNP 20,300. Status post left-sided thoracentesis with 350 mL of fluid removed, follow-up chest x-ray shows improvement Recently seen in the emergency room yesterday status post fall with injury and ecchymosis to the face. No intracranial bleed. No cervical fractures Recent episodes of dizziness of unclear etiology Chronic kidney disease, current creatinine 3.0 Chronic anemia, current hemoglobin 7.2 History of hypertension Former smoker Suspect mild chronic obstructive pulmonary disease Plan: The patient was seen and evaluated Ultrasound of the chest, chest x-ray, labs and medications reviewed Left-sided thoracentesis with 350 mL of fluid removed Fluid analysis and cytology pending Follow-up chest x-ray shows improvement, no pneumothorax Continue bronchodilators Continue oral diuretics Discontinue antibiotics Currently stable and on room air We will continue to follow I have personally seen and examined the patient, performed the documentation and the assessment and plan as written. Number of minutes spent on the visit: 10.
[2023-09-28 16:33] LABS: Appearance,BF Clear (Clear)
[2023-09-28 16:37] LABS: % Iron Saturation 12.99 (12.00-45.00)
[2023-09-28 20:11] LABS: LDH, Body Fluid Source Pleural Fluid; T. Protein, Body Fluid Source Pleural Fluid; Total Protein, Body Fluid 2680 mg/dL
[2023-09-29] MEDS: FUROSEMIDE 10 MG/ML 4 ML VIAL IV STA (01:17)
[2023-09-29] MEDS: DEXAMETHASONE SOD PHOSPHATE 4 MG/ML 1 ML VIAL IVP STA (01:17)
--- NOTE | 2023-09-29 07:44 | P.PN ---
Subjective Progress Note Date: 09/29/23 HISTORY OF PRESENT ILLNESS: 87-year-old one of my office patient with longstanding history of hypertension, hyperlipidemia, advanced chronic kidney disease stage IV, who also has chronic degenerative disc disease, chronic arthritis, chronic anemia with chronic edema Leydi sustained a fall on 09/26/2023 was seen in the emergency department story apparently for that she fell at home and hit her head on a hard floor developed slight swelling in the left thigh with large bruises she did not lose any consciousness developed to have mild headache discomfort and contusion on the forehead under the left eye and the right eye as well. Ended up coming to the emergency department by EMS her blood pressure was 199/78 pulse ox 97 percentile temperature was normal. Ended up having head and cervical spine CT showed large scalp hematoma over the left supraorbital forehead with no evidence of calvarial fracture no acute intracranial hemorrhage or midline shift or mass effect. Atrophy and chronic microvascular ischemic change only. Cervical spine showed moderate cervical spondylosis there is a slight emphysematous change on the top part of the lung with mild pleural calcification as well similar to clear exposure to asbestos with no pneumothorax. CT showed periorbital soft tissue thickening on the left with continuation into the left supraorbital scalp and partially imaged hematoma. Otherwise intact CT with no orbital fracture or evidence of major injury. She was treated apparently and sent home at the time. The patient returned at noon time to the emergency department today via EMS because of significant shortness of breath with cough and slightly bit respiratory distress she will open blow out a large patient usually does albuterol inhaler with a worsening dyspnea and shortness of breath with mild hypoxia and presented to the emergency department almost 24 hours. To the previous visit this time with her dyspnea and shortness of breath chest x-ray showed left lower lobe consolidation with small bilateral pleural effusion superimposed on background of COPD correlate with pneumonia. Stable appearing thoracic aortic ectasia or aneurysm. Laboratory value shows drop in hemoglobin 7.5 with white blood cell of 5.6, creatinine is quite bit worse at 3.08 with GFR running at 13. BNP was 20,300 UA was negative COVID RSV and influenza were all negative. So patient was diagnosed with slight respiratory distress consistent with pneumonia and worsening fluid overload with most likely congestive heart failure exacerbation and worsening renal function with chronic and acute anemia. 09/28/2023: Patient slept the night doing well no complication, continued to have slight cough and mild shortness of breath, legionnaire testing from yesterday came back to be negative, blood test this morning still pending. Ultrasound of the lung shows slight pleural effusion on the left side pulmonary might do thoracentesis today to drain it. Will start physical therapy and allow social work associate to take some time to talk to patient and family to see if she is interested to go to SNF or can go back to [facility] with help with physical therapy and home care. 09/29/2023: The patient is slightly bit confused today, but perhaps slight tightness ambulating, with more and worsening shortness of breath, she was seen pulmonary early apparently had some more nebulizer management. Also was started on steroid this morning 1 more time. 1 dose of IV furosemide was prescribed. Will arrange for brain CAT scan to exclude any possibility since her closed head trauma with severe bruise. Patient still bedbound at this point not doing any physical therapy with slightly with worsening reactive airway and tight and wheezy patient will pr obably remain in the hospital on the weekend with try to do more physical therapy talk to the social work associate about possibility of going to rehab on Monday. REVIEW OF SYSTEMS: CONSTITUTIONAL: Well-developed mild respiratory distress EYES: Slight swelling hematoma and major bruise over the left eye more than the right side with entire face and forehead covered with bruises from her injury yesterday with slight hematoma.. EARS, NOSE, MOUTH, THROAT, and FACE: No sore throat, lymphadenopathy, carotid bruits or deformity. RESPIRATORY: Positive shortness of breath cough or wheezes. CARDIOVASCULAR: Positive PND orthopnea palpitation. GASTROINTESTINAL: Slight abdominal discomfort with nausea no vomiting. GENITOURINARY: Decreased urine output with chronic kidney disease. INTEGUMENT/BREAST: Negative for any muscular injury with mild osteoarthritis.. HEMATOLOGIC/LYMPHATIC: Chronic anemia with hematoma and slight bruises on the facial area. MUSCULOSKELTAL: Negative for Myalgia or arthralgia. NEURLOGICAL: Slight confusion with worsening mentation. BEHAVIORAL/PSYCH: Negative. ENDOCRINE: Negative. PHYSICAL EXAMINATION: General Appearance: Alert, cooperative, slightly bit confused mild respiratory distress. Neck HEENT: Very large hematoma and bruise over the left eye forehead the right eye and to the cheek area on the facial area. Slight stiffness and discomfort in the neck area as well. Lungs: Decreased breath sound bilaterally with fine crackles bilaterally but worsening in the left base up to the middle of her lung with rhonchi and slight expiratory wheezes. Chest Wall: Decreased expansion with deep inspiration no tenderness and no deformity was found on exam, no costochondral pain or discomfort. Heart: Regular rate and rhythm, S1, S2 positive systolic murmur mild tachycardia. Back: Symmetric, slight curvature with mild scoliosis. Abdomen: Soft, non-tender, bowel sounds active positive midepigastric discomfort Extremities: Chronic edema with generalized vascular cellulitis of the lower extremity. Pulses: 2+ and symmetric. Skin: Skin color, texture, tugor normal, no rashes or lesions. Neurologic: Alert oriented with slight confusion cranial nerves II to XII intact positive generalized weakness with abnormal balance and gait. ASSESSMENT AND PLAN: _Severe dyspnea and shortness of breath: Combination of left lower lobe pneumonia, fluid overload and CHF, anemia, and mild COPD. And slight pleural effusion on the left side. Symptoms are slightly bit worse today increased nebulizer management along with O2 continue steroid and diuretics. _Left lower lobe pneumonia: Will start patient on Rocephin along with azithromycin still seen pulmonary still on aggressive management for left lower lobe pneumonia. _Left-sided pleural effusion: Might require thoracentesis was marked with ultrasound she might have to go for thoracentesis. _Congestive heart failure with mild exacerbation most likely diastolic dysfunction no recent study or testing of the heart muscle echocardiogram was order BNP was over 20,000 continue patient on IV diuretics when kidney function improved some continue to watch for any fluid overload. Waiting for the final result with an echo with her kidney function options are limited with medication but is still can use diuretics along with ARB. _COPD with remote history of smoking: Not clear with the patient cardiac to much to steroids systemic or not but she still on steroid nebulizer decide next updraft treatment. _Iron deficiency anemia with worsening anemia compared to before might benefit from iron infusion no blood transfusion required keep watching for GI bleed. _Stage 5 chronic kidney disease with worsening kidney function patient is a predialysis at this point will consult nephrology continue to watch for any worsening signs and symptoms. Patient is absolutely refused dialysis. _Closed head trauma with large hematoma of the left forehead, orbit and right side area, still having slight headache from the trauma with mild bruise neck continue Tylenol and muscle relaxer on as-needed basis. With the worsening mental status sent patient from her CAT scan today. _Altered mental status with worsening confusion: She had slight underlying memor y loss with a close head trauma become slightly bit worse, keep watching for any worsening component and at some point patient probably will benefit from smaller dose of donepezil or rivastigmine. _Hypertension: With urgent blood pressure lately, continue amlodipine 5 mg a day, Coreg 12.5 mg twice a day, hydralazine 50 mg twice a day and continue torsemide at 10 mg daily. Prognosis: Fair. Discharge planning: Patient has slightly but worsening condition compared to yesterday will be going for another CAT scan, continue updraft treatment and little bit tight management for COPD and bronchitis today patient will be in the hospital through the weekend the potential probably for going to rehab sometimes early next week. Objective - Vital Signs Vital signs: Vital Signs Temp 97.6 F 09/29/23 00:43 Pulse 82 09/29/23 04:56 Resp 20 09/29/23 00:43 BP 176/84 09/29/23 00:43 Pulse Ox 98 09/29/23 00:43 FiO2 Intake & Output 09/28/23 09/28/23 09/29/23 06:59 18:59 06:59 Intake Total 240 Balance 240 Intake: Oral 240 Other: Voiding Method Toilet Toilet # Voids 3 1 2 # Bowel Movements 2 1 1 - Labs CBC & Chem 7: 09/28/23 05:55 09/28/23 05:55 Labs: Abnormal Lab Results - Last 24 Hours (Table) 09/28/23 09/28/23 09/28/23 Range/Units 05:55 05:55 05:55 RBC 2.61 L (4.10-5.20) X 10*6/uL Hgb 7.2 L (12.0-15.0) g/dL Hct 22.6 L (37.2-46.3) % MCHC 31.9 L (32.0-37.0) g/dL RDW 15.7 H (11.5-14.5) % Carbon Dioxide 17.5 L (21.6-31.8) mmol/L Anion Gap 13.50 H (4.00-12.00) mmol/L BUN 42.5 H (9.0-27.0) mg/dL Creatinine 3.0 H (0.6-1.5) mg/dL Est GFR (CKD-EPI) 14 L (>=60) Glucose 125 H (70-110) mg/dL Iron 30 L (50-170) UG/DL Transferrin 165.0 L (204.0-354.0) mg/dL Ferritin 548.0 H (10.0-291.0) ng/mL Total Bilirubin <0.2 L (0.3-1.2) mg/dL Total Protein 6.0 L (6.2-8.2) g/dL Microbiology - Last 24 Hours (Table) 09/28/23 08:30 Gram Stain - Preliminary Pleural Fluid 09/27/23 12:05 Blood Culture - Preliminary Blood 09/27/23 12:20 Blood Culture - Preliminary Blood
--- NOTE | 2023-09-29 08:13 | XR ---
EXAMINATION TYPE: XR chest 1V portable DATE OF EXAM: 09/29/2023 8:04 AM CLINICAL INDICATION:Female, 87 years old with history of sob; [facility] COMPARISON: Chest radiographs from yesterday. TECHNIQUE: XR chest 1V portable Frontal view of the chest. FINDINGS: Lungs/Pleura: Small residual left pleural effusion remains post thoracentesis. No pneumothorax. No fo sheron consolidation appreciated. Pulmonary vascularity: Unremarkable. Heart/mediastinum: Cardiomediastinal silhouette is unremarkable. Musculoskeletal: No acute osseous pathology. Other findings: None Lines/Tubes: None. IMPRESSION: Small residual left pleural effusion post thoracentesis. No pneumothorax.
[2023-09-29] MEDS: SYMBICORT 160-4.5 MCG INHALER INHALATION SCH (08:57)
--- NOTE | 2023-09-29 09:10 | CT ---
EXAMINATION TYPE: CT brain wo con CT DLP: 1171 mGycm, Automated exposure control for dose reduction was used. DATE OF EXAM: 09/29/2023 8:47 AM COMPARISON: 09/26/2023. CLINICAL INDICATION:Female, 87 years old with history of change in MS, AMS, fall TECHNIQUE: Brain: Axial CT images of the brain were obtained with coronal and sagittal reformats created and rev iewed. Contrast used: None. Oral contrast used: None. FINDINGS: Brain: Extra-axial spaces: No abnormal extra-axial fluid collections. Extra-axial spaces: No abnormal extra-axial fluid collections. Ventricular system: Appear dilated in proportion to the degree of cerebral atrophy. Cerebral parenchyma: No increased attenuation to suggest acute intraparenchymal hemorrhage. The mckinnon-white matter interface appears maintained. Moderate to severe generalized brain atrophy. Sca ttered hypoattenuating areas are seen within the cerebral white matter, nonspecific but most often se en with chronic microvascular ischemic changes; mild/moderate in degree. Cerebellum: No acute abnormality. Mass effect: No evidence of mass effect or midline shift. Intracranial vasculature: Atherosclerotic calcifications of the larger arteries near the skull base. Soft tissues: There is some left periorbital preseptal soft tissue swelling, and cranial to the left orbit there is what appears to be a combination of subgaleal and subcutaneous hematoma in the scalp, the thickest portion of which is approximately 2.2 cm. IMPRESSION: No acute intracranial process. Left frontal scalp hematoma. Left periorbital soft tissue hematoma
[2023-09-29] MEDS: TORSEMIDE 20 MG TAB PO SCH (10:36)
[2023-09-29] MEDS: amLODIPine 5 MG TAB PO SCH (10:36)
[2023-09-29] MEDS: hydrALAZINE HCL 25 MG TAB PO SCH (10:36)
[2023-09-29 11:27] LABS: BUN/Creat Ratio 14.43 Ratio (12.00-20.00); Blood Urea Nitrogen 50.5 mg/dL (9.0-27.0); Calcium 8.6 mg/dL (8.7-10.3); Carbon Dioxide 17.3 mmol/L (21.6-31.8); Chloride 102 mmol/L (96-109); Glucose 116 mg/dL (70-110); Magnesium 2.2 mg/dL (1.5-2.4); Potassium 4.5 mmol/L (3.5-5.5); Sodium 135 mmol/L (135-145)
--- NOTE | 2023-09-29 12:20 | CA ---
Transthoracic Echo Report Name: Esha Watson Age: 87 Gender: F : 1935 Exam Date: 09/29/2023 09:44 Exam Location: [facility] Ht (in): 62 Wt (lb): 106 Ordering Physician: Nati Menezes Attending/Referring Phys: Aquatics Specialist Minoo Marks RDCS Procedure CPT: Indications: chf Cardiac Hx: Technical Quality: Fair Contrast 1: Total Dose (mL): Contrast 2: Total Dose (mL): MEASUREMENTS (Male / Female) Normal Values 2D ECHO LV Diastolic Diameter PLAX 4.3 cm 4.2 - 5.9 / 3.9 - 5.3 cm LV Systolic Diameter PLAX 2.8 cm IVS Diastolic Thickness 1.2 cm 0.6 - 1.0 / 0.6 - 0.9 cm LVPW Diastolic Thickness 1.2 cm 0.6 - 1.0 / 0.6 - 0.9 cm LV Relative Wall Thickness 0.6 RV Internal Dim ED PLAX 3.2 cm LV Diastolic Volume MOD BP 111.4 cm??? 67 - 155 / 56 - 104 cm??? LV Systolic Volume MOD BP 55.2 cm??? 22 - 58 / 19 - 49 cm??? LV Ejection Fraction MOD BP 50.4 % >= 55 % LV Cardiac Index MOD BP 3337.2 cm???/min???m??? LV Diastolic Volume MOD 4C 97.4 cm??? LV Systolic Volume MOD 4C 49.3 cm??? LV Ejection Fraction MOD 4C 49.4 % LV Cardiac Index MOD 4C 2857.8 cm???/min???m??? LV Diastolic Length 4C 8.1 cm LV Systolic Length 4C 6.1 cm LV Diastolic Volume MOD 2C 115.8 cm??? LV Systolic Volume MOD 2C 56.4 cm??? LV Ejection Fraction MOD 2C 51.3 % LV Cardiac Index MOD 2C 3530.7 cm???/min???m??? LV Diastolic Length 2C 7.3 cm LV Systolic Length 2C 6.8 cm LA Volume 61.3 cm??? 18 - 58 / 22 - 52 cm??? LA Volume Index 42.3 cm???/m??? 16 - 28 cm???/m??? M-MODE Aortic Root Diameter MM 3.2 cm LA Systolic Diameter MM 4.9 cm LA Ao Ratio MM 1.6 AV Cusp Separation MM 1.4 cm DOPPLER AV Peak Velocity 186.8 cm/s AV Peak Gradient 14.0 mmHg AV Mean Velocity 110.5 cm/s AV Mean Gradient 5.9 mmHg AV Velocity Time Integral 37.0 cm LVOT Peak Velocity 94.3 cm/s LVOT Peak Gradient 3.6 mmHg LVOT Velocity Time Integral 22.4 cm MV Area PHT 4.5 cm??? Mitral E Point Velocity 115.5 cm/s Mitral A Point Velocity 148.2 cm/s Mitral E to A Ratio 0.8 MV Deceleration Time 168.8 ms MV E' Velocity 3.3 cm/s Mitral E to MV E' Ratio 34.9 TR Peak Velocity 275.7 cm/s TR Peak Gradient 30.4 mmHg Right Atrial Pressure 15.0 mmHg Pulmonary Artery Systolic Pressu 45.4 mmHg Right Ventricular Systolic Press 45.4 mmHg FINDINGS Left Ventricle Mildly increased septal wall thickness. Mildly increased posterior wall thickness. Mildly increased left ventricular diastolic volume. Mildly increased left ventricular systolic volume. Mildly decreased left ventricular ejection fraction. Left ventricular ejection fraction is estimated at 50-55 %. Abnormal left ventricular diastolic filling pattern. Grade I diastolic dysfunction. Right Ventricle Normal right ventricular size and function. Mild pulmonary hypertension. Right Atrium Normal right atrial size. Left Atrium Moderatly increased left atrial volume. Mildly increased left atrial area. Mitral Valve Structurally normal mitral valve. Mitral valve thickened. Moderate mitral annular calcification. Moderate mitral regurgitation. Aortic Valve Trileaflet aortic valve. Thickened aortic valve without stenosis. No aortic regurgitation. Tricuspid Valve Structurally normal tricuspid valve. Mild tricuspid regurgitation. Pulmonic Valve Structurally normal pulmonic valve. Trace pulmonic regurgitation. Pericardium Small pericardial effusion. Pleural effusion. Aorta Normal size aortic root and proximal ascending aorta. CONCLUSIONS Left ventricular ejection fraction is estimated at 50-55 %. Grade I diastolic dysfunction. No obvious regional wall motion abnormality Mild concentric LVH Normal RV, RA size. Mild LA dilatation Moderate mitral regurgitation Mild pericardial effusion. No signs of tamponade Previewed by: Dr Bertrand Ulloa (Electronically Signed) Final Date: 29 September 2023 12:19
--- NOTE | 2023-09-29 13:08 | P.PN ---
Subjective Patient is seen in follow-up for chronic kidney disease. Renal function little worse. Creatinine 3.5 today. On torsemide. Has been voiding. Blood pressure has been high. Amlodipine increased today. Oral intake fair. Vital signs are stable. General: No acute distress. HEENT: Head exam is unremarkable. LUNGS: No audible rhonchi or wheezes. HEART: Rate and Rhythm are regular. ABDOMEN: Nontender. EXTREMITITES: Trace edema. Chronic changes noted. Objective - Vital Signs Vital signs: Vital Signs Temp 97.6 F 09/29/23 07:00 Pulse 92 09/29/23 12:06 Resp 20 09/29/23 07:00 BP 183/83 09/29/23 07:00 Pulse Ox 99 09/29/23 07:00 FiO2 Intake & Output 09/28/23 09/29/23 09/29/23 18:59 06:59 18:59 Intake Total 240 240 Balance 240 240 Intake: Oral 240 240 Other: Voiding Method Toilet # Voids 1 3 1 # Bowel Movements 1 1 1 - Labs CBC & Chem 7: 09/28/23 05:55 09/29/23 05:31 Labs: Abnormal Lab Results - Last 24 Hours (Table) 09/28/23 09/29/23 Range/Units 05:55 05:31 Carbon Dioxide 17.3 L (21.6-31.8) mmol/L Anion Gap 15.70 H (4.00-12.00) mmol/L BUN 50.5 H (9.0-27.0) mg/dL Creatinine 3.5 H (0.6-1.5) mg/dL Est GFR (CKD-EPI) 12 L (>=60) Glucose 116 H (70-110) mg/dL Calcium 8.6 L (8.7-10.3) mg/dL Iron 30 L (50-170) UG/DL Transferrin 165.0 L (204.0-354.0) mg/dL Ferritin 548.0 H (10.0-291.0) ng/mL Microbiology - Last 24 Hours (Table) 09/28/23 08:30 Gram Stain - Preliminary Pleural Fluid Body Fluid Culture - Preliminary 09/27/23 12:05 Blood Culture - Preliminary Blood 09/27/23 12:20 Blood Culture - Preliminary Blood Assessment and Plan Plan: Assessment: 1. Chronic kidney disease stage V with baseline creatinine near 3 secondary to nephrosclerosis. Renal function little worse from increasing diuretics. Also received IV Lasix last night. Creatinine 3.5. 2. Status post recent fall with facial bruising. 3. Metabolic acidosis secondary to chronic kidney disease. On oral bicarb. 4. Anemia of chronic kidney disease. Iron deficiency noted. 5. Hypertension with chronic kidney disease. 6. Fluid overload status post left-sided thoracentesis with 350 cc drained September 28, 2023. 7. COPD exacerbation. Also on antibiotics for possible pneumonia - pff abx n ow. 8. Diabetes mellitus. 9. Acute on chronic diastolic CHF with moderate mitral regurgitation. Plan: Maintain torsemide. Low-salt diet. Add IV iron. Increase frequency of bicarb to 3 times daily. Dose of amlodipine and hydralazine increased today. Avoid nephrotoxins. Continue to monitor renal function and urine output. Patient has refused any form of renal replacement therapy if needed.
--- NOTE | 2023-09-29 14:03 | P.PN ---
Subjective Progress Note Date: 09/29/23 This is a pleasant 87-year-old female patient who resides at [facility]. She has a history of chronic kidney disease, former smoker, hypertension. She also had been having issues with dizziness and had sustained a fall yesterday and was seen here in the emergency room, CT scan revealed a large scalp hematoma over the left supraorbital forehead. No evidence of fracture. No intracranial hemorrhage. No evidence of acute cervical spine fracture, no sustained injuries and was discharged home. She had developed increasing shortness of breath, cough and congestion. X-ray reveals a left lower lobe consolidation and small bilateral pleural effusions superimposed on background COPD. White count 5.6. Hemoglobin 7.5. Platelets 199. Sodium 138. Potassium 3.8. Bicarb 17. BUN 38. Creatinine 3.08. Urinalysis clean. Viral screen negative. She is seen today in consultation in the emergency department. She is currently sitting up on the stretcher. Awake and alert in no acute distress. Maintaining O2 saturations in the 90s on room air. She does have significant ecchymosis on the bilateral face more so on the left. No fever or chills. She is afebrile. Hemodynamically stable. The patient is seen today September 28, 2023 in follow-up on the regular medical floor. She is currently sitting up at the bedside. Awake and alert in no acute distress. Breathing a bit easier today compared to yesterday. Maintaining good O2 saturations in the 90s on room air. Her proBNP was over 20,000. Her procalcitonin was 0.09. She is still on ceftriaxone and azithromycin. Ultrasound of the left chest did show a 7.2 cm pocket. She had undergone left- sided thoracentesis today with Dr. Poole and approximately 325 MLS of cloudy yellow fluid was returned. Fluid analysis and cytology pending. White count 5.3. Hemoglobin 7.2. Platelets 211. Sodium 136. Potassium 4.2. Bicarb 18. BUN 43. Creatinine 3.0. Glucose 125. Troponin was negative x 1. She remains on oral diuretics. The patient is seen today September 29, 2023 in follow-up on the regular medical floor. She is awake and alert in no acute distress. Denies any worsening shortness of breath, cough or congestion. Follow-up chest x-ray reveals just a small amount of residual left pleural effusion. Fluid was transudate in nature with a protein of 2.6 and LDH of 81. Echocardiogram reveals a preserved left ventricular systolic function with ejection fraction 50 to 55%. Grade 1 diastolic dysfunction. Mitral regurgitation. Blood cultures revealed no growth. Pleural fluid cultures pending. Sodium 135. Potassium 4.5. Bicarb 17. BUN 51. Creatinine 3.5. Glucose 116. She continues on DuoNeb ventilations, Symbicort. Remains on oral diuretics. Iron replacement therapy. CT scan of the brain reveals no acute intracranial process. Left frontal scalp hematoma. Left periorbital soft tissue hematoma. Objective - Vital Signs Vital signs: Vital Signs Temp 97.6 F 09/29/23 07:00 Pulse 92 09/29/23 12:06 Resp 20 09/29/23 07:00 BP 183/83 09/29/23 07:00 Pulse Ox 99 09/29/23 07:00 FiO2 Intake & Output 09/28/23 09/29/23 09/29/23 18:59 06:59 18:59 Intake Total 240 240 Balance 240 240 Intake: Oral 240 240 Other: Voiding Method Toilet # Voids 1 3 1 # Bowel Movements 1 1 1 - Exam GENERAL EXAM: Alert, very pleasant 87-year-old female, sitting up in bed, on room air, in no apparent distress. HEAD: Normocephalic. Evidence of trauma to the bilateral face more so on the left. Status post fall EYES: Normal reaction of pupils, equal size. NOSE: Clear with pink turbinates. THROAT: No erythema or exudates. NECK: No masses, no JVD. CHEST: No chest wall deformity. LUNGS: Equal air entry with crackles in the left base. CVS: S1 and S2 normal with no audible murmur, regular rhythm. ABDOMEN: No hepatosplenomegaly, normal bowel sounds, no guarding or rigidity. SPINE: No scoliosis or deformity SKIN: No rashes CENTRAL NERVOUS SYSTEM: No focal deficits, tone is normal in all 4 extremities. EXTREMITIES: There is no peripheral edema. No clubbing, no cyanosis. Peripheral pulses are intact. - Labs CBC & Chem 7: 09/28/23 05:55 09/29/23 05:31 Labs: Abnormal Lab Results - Last 24 Hours (Table) 09/28/23 09/29/23 Range/Units 05:55 05:31 Carbon Dioxide 17.3 L (21.6-31.8) mmol/L Anion Gap 15.70 H (4.00-12.00) mmol/L BUN 50.5 H (9.0-27.0) mg/dL Creatinine 3.5 H (0.6-1.5) mg/dL Est GFR (CKD-EPI) 12 L (>=60) Glucose 116 H (70-110) mg/dL Calcium 8.6 L (8.7-10.3) mg/dL Iron 30 L (50-170) UG/DL Transferrin 165.0 L (204.0-354.0) mg/dL Ferritin 548.0 H (10.0-291.0) ng/mL Microbiology - Last 24 Hours (Table) 09/28/23 08:30 Gram Stain - Preliminary Pleural Fluid Body Fluid Culture - Preliminary 09/27/23 12:05 Blood Culture - Preliminary Blood 09/27/23 12:20 Blood Culture - Preliminary Blood Assessment and Plan Assessment: Dyspnea secondary to left sided pleural effusion. proBNP 20,300. Status post left-sided thoracentesis with 350 mL of fluid removed, follow-up chest x-ray shows improvement. Fluid transudate Recently seen in the emergency room status post fall with injury and ecchymosis to the face. No intracranial bleed. No cervical fractures Recent episodes of dizziness of unclear etiology Chronic kidney disease, current creatinine 3.0 Chronic anemia, current hemoglobin 7.2 History of hypertension Former smoker Suspect mild chronic obstructive pulmonary disease Plan: The patient was seen and evaluated CT brain, chest x-ray, labs and medications reviewed Fluid analysis transudate and cytology pending Continue bronchodilators Continue oral diuretics We will continue to follow I have personally seen and examined the patient, performed the documentation and the assessment and plan as written. Number of minutes spent on the visit: 10.
[2023-09-29] MEDS: SODIUM FERRIC GLUCONAT-SUCROSE 125 MG in SODIUM CHLORIDE 0.9% 100 ML IVPB SCH (17:40)
[2023-09-29] MEDS: SODIUM BICARBONATE TAB 650 MG TAB PO SCH (18:00)
[2023-09-30 09:24] LABS: HCT 26.1 % (37.2-46.3); HGB 8.1 g/dL (12.0-15.0); MCH 26.9 pg (27.0-32.0); MCV 86.7 FL (80.0-97.0); Mean Platelet Volume 10.4 FL (9.5-12.2); NRBC Per 100 WBC 0 X 10*3/uL (0.00-0.01); Platelet Count 274 X 10*3/uL (140-440); RBC 3.01 X 10*6/uL (4.10-5.20); RDW 16.1 % (11.5-14.5); WBC 7.99 X 10*3/uL (4.50-10.00)
[2023-09-30 09:47] LABS: ALT 10 U/L (8-44); AST 12 U/L (13-35); Albumin 3.6 g/dL (3.8-4.9); Albumin/Globulin Ratio 1.71 Ratio (1.60-3.17); Alkaline Phosphatase 40 U/L (41-126); BUN/Creat Ratio 17.43 Ratio (12.00-20.00); Calcium 8.5 mg/dL (8.7-10.3); Carbon Dioxide 17.8 mmol/L (21.6-31.8); Chloride 100 mmol/L (96-109); Globulin 2.1 g/dL (1.6-3.3); Glucose 102 mg/dL (70-110); Magnesium 2.1 mg/dL (1.5-2.4); Potassium 4.3 mmol/L (3.5-5.5); Sodium 133 mmol/L (135-145); Total Bilirubin <0.2 mg/dL (0.3-1.2); Total Protein 5.7 g/dL (6.2-8.2)
--- NOTE | 2023-09-30 10:55 | P.PN ---
Subjective Progress Note Date: 09/30/23 HISTORY OF PRESENT ILLNESS: 87-year-old one of my office patient with longstanding history of hypertension, hyperlipidemia, advanced chronic kidney disease stage IV, who also has chronic degenerative disc disease, chronic arthritis, chronic anemia with chronic edema Leydi sustained a fall on 09/26/2023 was seen in the emergency department story apparently for that she fell at home and hit her head on a hard floor developed slight swelling in the left thigh with large bruises she did not lose any consciousness developed to have mild headache discomfort and contusion on the forehead under the left eye and the right eye as well. Ended up coming to the emergency department by EMS her blood pressure was 199/78 pulse ox 97 percentile temperature was normal. Ended up having head and cervical spine CT showed large scalp hematoma over the left supraorbital forehead with no evidence of calvarial fracture no acute intracranial hemorrhage or midline shift or mass effect. Atrophy and chronic microvascular ischemic change only. Cervical spine showed moderate cervical spondylosis there is a slight emphysematous change on the top part of the lung with mild pleural calcification as well similar to clear exposure to asbestos with no pneumothorax. CT showed periorbital soft tissue thickening on the left with continuation into the left supraorbital scalp and partially imaged hematoma. Otherwise intact CT with no orbital fracture or evidence of major injury. She was treated apparently and sent home at the time. The patient returned at noon time to the emergency department today via EMS because of significant shortness of breath with cough and slightly bit respiratory distress she will open blow out a large patient usually does albuterol inhaler with a worsening dyspnea and shortness of breath with mild hypoxia and presented to the emergency department almost 24 hours. To the previous visit this time with her dyspnea and shortness of breath chest x-ray showed left lower lobe consolidation with small bilateral pleural effusion superimposed on background of COPD correlate with pneumonia. Stable appearing thoracic aortic ectasia or aneurysm. Laboratory value shows drop in hemoglobin 7.5 with white blood cell of 5.6, creatinine is quite bit worse at 3.08 with GFR running at 13. BNP was 20,300 UA was negative COVID RSV and influenza were all negative. So patient was diagnosed with slight respiratory distress consistent with pneumonia and worsening fluid overload with most likely congestive heart failure exacerbation and worsening renal function with chronic and acute anemia. 09/28/2023: Patient slept the night doing well no complication, continued to have slight cough and mild shortness of breath, legionnaire testing from yesterday came back to be negative, blood test this morning still pending. Ultrasound of the lung shows slight pleural effusion on the left side pulmonary might do thoracentesis today to drain it. Will start physical therapy and allow social media strategist to take some time to talk to patient and family to see if she is interested to go to SNF or can go back to [facility] with help with physical therapy and home care. 09/29/2023: The patient is slightly bit confused today, but perhaps slight tightness ambulating, with more and worsening shortness of breath, she was seen pulmonary early apparently had some more nebulizer management. Also was started on steroid this morning 1 more time. 1 dose of IV furosemide was prescribed. Will arrange for brain CAT scan to exclude any possibility since her closed head trauma with severe bruise. Patient still bedbound at this point not doing well with current IV antibiotics any physical therapy with slightly with worsening reactive airway and tight and wheezy patient will probably remain in the hospital on the weekend with try to do more physical therapy talk to the social media strategist about possibility of going to rehab on Monday. 09/30/2023: She is feeling slightly better since her paracentesis, had 300 cc of fluid drained mostly transudate no sign of infection and negative for blood, will continue current IV antibiotics the fluid probably happened because of fluid overload, heart failure and because of the kidney failure. Kidney failure is much worse today her GFR is down to 12, continue current management patient absolutely refused to go on dialysis continue iron infusion her hemoglobin is slightly bit better does not need any blood transfusion at this point. Patient still slightly bit confused at some point family believes still trying to get her to blow out her large with extra help she has. REVIEW OF SYSTEMS: CONSTITUTIONAL: Well-developed mild respiratory distress EYES: Slight swelling hematoma and major bruise over the left eye more than the right side with entire face and forehead covered with bruises from her injury yesterday with slight hematoma.. EARS, NOSE, MOUTH, THROAT, and FACE: No sore throat, lymphadenopathy, carotid bruits or deformity. RESPIRATORY: Positive shortness of breath cough or wheezes. CARDIOVASCULAR: Positive PND orthopnea palpitation. GASTROINTESTINAL: Slight abdominal discomfort with nausea no vomiting. GENITOURINARY: Decreased urine output with chronic kidney disease. INTEGUMENT/BREAST: Negative for any muscular injury with mild osteoarthritis.. HEMATOLOGIC/LYMPHATIC: Chronic anemia with hematoma and slight bruises on the facial area. MUSCULOSKELTAL: Negative for Myalgia or arthralgia. NEURLOGICAL: Slight confusion with worsening mentation. BEHAVIORAL/PSYCH: Negative. ENDOCRINE: Negative. PHYSICAL EXAMINATION: General Appearance: Alert, cooperative, slightly bit confused mild respiratory distress. Neck HEENT: Very large hematoma and bruise over the left eye forehead the right eye and to the cheek area on the facial area. Slight stiffness and discomfort in the neck area as well. Lungs: Decreased breath sound bilaterally with fine crackles bilaterally but worsening in the left base up to the middle of her lung with rhonchi and slight expiratory wheezes. Chest Wall: Decreased expansion with deep inspiration no tenderness and no deformity was found on exam, no costochondral pain or discomfort. Heart: Regular rate and rhythm, S1, S2 positive systolic murmur mild tachycardia. Back: Symmetric, slight curvature with mild scoliosis. Abdomen: Soft, non-tender, bowel sounds active positive midepigastric discomfort Extremities: Chronic edema with generalized vascular cellulitis of the lower extremity. Pulses: 2+ and symmetric. Skin: Skin color, texture, tugor normal, no rashes or lesions. Neurologic: Alert oriented with slight confusion cranial nerves II to XII intact positive generalized weakness with abnormal balance and gait. ASSESSMENT AND PLAN: _Severe dyspnea and shortness of breath: Combination of left lower lobe pneumonia, fluid overload and CHF, anemia, and mild COPD. And slight pleural effusion on the left side. Symptoms are slightly bit worse today increased nebulizer management along with O2 continue steroid and diuretics. _Left lower lobe pneumonia: Will start patient on Rocephin along with azithromycin still seen pulmonary still on aggressive management for left lower lobe pneumonia. _Left-sided pleural effusion: Post 300 cc of thoracentesis mostly transudate feeling better. _Congestive heart failure with mild exacerbation most likely diastolic dysfunct ion no recent study or testing of the heart muscle continue management with diuretics along with ARB continue to watch her eyes and nose as well. _COPD with remote history of smoking: Not clear with the patient cardiac to much to steroids systemic or not but she still on steroid nebulizer decide next updraft treatment. _Iron deficiency anemia with worsening anemia compared to before might benefit from iron infusion no blood transfusion required keep watching for GI bleed. _Stage 5 chronic kidney disease with worsening kidney function patient is a predialysis at this point will consult nephrology continue to watch for any worsening signs and symptoms. Patient is absolutely refused dialysis. _Closed head trauma with large hematoma of the left forehead, orbit and right side area, still having slight headache from the trauma with mild bruise neck continue Tylenol and muscle relaxer on as-needed basis. With the worsening mental status sent patient from her CAT scan today. _Altered mental status with worsening confusion: She had slight underlying memory loss with a close head trauma become slightly bit worse, keep watching for any worsening component and at some point patient probably will benefit from smaller dose of donepezil or rivastigmine. _Hypertension: With urgent blood pressure lately, continue amlodipine 5 mg a day, Coreg 12.5 mg twice a day, hydralazine 50 mg twice a day and continue torsemide at 10 mg daily. Prognosis: Fair. Discharge planning: Postthoracentesis continue physical therapy continue diuretics her kidney function is slightly bit worse patient will remain in the hospital till Monday try to address with the family and patient again whether she should go to rehab or going to blow out a lot with help. Objective - Vital Signs Vital signs: Vital Signs Temp 97.5 F L 09/30/23 04:24 Pulse 80 09/30/23 04:24 Resp 19 09/30/23 04:24 BP 174/83 09/30/23 04:24 Pulse Ox 100 09/30/23 04:24 FiO2 Intake & Output 09/29/23 09/30/23 09/30/23 18:59 06:59 18:59 Intake Total 780 Balance 780 Intake: Oral 780 Other: Voiding Method Toilet # Voids 1 2 # Bowel Movements 1 1 - Labs CBC & Chem 7: 09/30/23 04:17 09/30/23 04:17 Labs: Abnormal Lab Results - Last 24 Hours (Table) 09/29/23 Range/Units 05:31 Carbon Dioxide 17.3 L (21.6-31.8) mmol/L Anion Gap 15.70 H (4.00-12.00) mmol/L BUN 50.5 H (9.0-27.0) mg/dL Creatinine 3.5 H (0.6-1.5) mg/dL Est GFR (CKD-EPI) 12 L (>=60) Glucose 116 H (70-110) mg/dL Calcium 8.6 L (8.7-10.3) mg/dL Microbiology - Last 24 Hours (Table) 09/28/23 08:30 Acid Fast Bacilli Smear - Preliminary Pleural Fluid 09/27/23 12:05 Blood Culture - Preliminary Blood 09/27/23 12:20 Blood Culture - Preliminary Blood 09/28/23 08:30 Gram Stain - Preliminary Pleural Fluid Body Fluid Culture - Preliminary
--- NOTE | 2023-09-30 12:24 | P.PN ---
Subjective Progress Note Date: 09/30/23 This is a pleasant 87-year-old female patient who resides at [facility]. She has a history of chronic kidney disease, former smoker, hypertension. She also had been having issues with dizziness and had sustained a fall yesterday and was seen here in the emergency room, CT scan revealed a large scalp hematoma over the left supraorbital forehead. No evidence of fracture. No intracranial hemorrhage. No evidence of acute cervical spine fracture, no sustained injuries and was discharged home. She had developed increasing shortness of breath, cough and congestion. X-ray reveals a left lower lobe consolidation and small bilateral pleural effusions superimposed on background COPD. White count 5.6. Hemoglobin 7.5. Platelets 199. Sodium 138. Potassium 3.8. Bicarb 17. BUN 38. Creatinine 3.08. Urinalysis clean. Viral screen negative. She is seen today in consultation in the emergency department. She is currently sitting up on the stretcher. Awake and alert in no acute distress. Maintaining O2 saturations in the 90s on room air. She does have significant ecchymosis on the bilateral face more so on the left. No fever or chills. She is afebrile. Hemodynamically stable. The patient is seen today September 28, 2023 in follow-up on the regular medical floor. She is currently sitting up at the bedside. Awake and alert in no acute distress. Breathing a bit easier today compared to yesterday. Maintaining good O2 saturations in the 90s on room air. Her proBNP was over 20,000. Her procalcitonin was 0.09. She is still on ceftriaxone and azithromycin. Ultrasound of the left chest did show a 7.2 cm pocket. She had undergone left- sided thoracentesis today with Dr. Poole and approximately 325 MLS of cloudy yellow fluid was returned. Fluid analysis and cytology pending. White count 5.3. Hemoglobin 7.2. Platelets 211. Sodium 136. Potassium 4.2. Bicarb 18. BUN 43. Creatinine 3.0. Glucose 125. Troponin was negative x 1. She remains on oral diuretics. The patient is seen today September 29, 2023 in follow-up on the regular medical floor. She is awake and alert in no acute distress. Denies any worsening shortness of breath, cough or congestion. Follow-up chest x-ray reveals just a small amount of residual left pleural effusion. Fluid was transudate in nature with a protein of 2.6 and LDH of 81. Echocardiogram reveals a preserved left ventricular systolic function with ejection fraction 50 to 55%. Grade 1 diastolic dysfunction. Mitral regurgitation. Blood cultures revealed no growth. Pleural fluid cultures pending. Sodium 135. Potassium 4.5. Bicarb 17. BUN 51. Creatinine 3.5. Glucose 116. She continues on DuoNeb ventilations, Symbicort. Remains on oral diuretics. Iron replacement therapy. CT scan of the brain reveals no acute intracranial process. Left frontal scalp hematoma. Left periorbital soft tissue hematoma. The patient is seen today September 30, 2019 for follow-up on the regular medical floor. She is awake and alert in no acute distress. Currently sitting up in a chair at the bedside. Maintaining good O2 saturations in the 90s on room air. No worsening shortness of breath, cough or congestion. Blood and pleural fluid cultures are revealing no growth. White count 7.9. Hemoglobin 8.1. Platelets 274. Sodium 133. Potassium 4.3. Bicarb 15. BUN 61. Creatinine 3.5. She remains on bronchodilators, diuretics. Objective - Vital Signs Vital signs: Vital Signs Temp 97.5 F L 09/30/23 08:00 Pulse 91 09/30/23 09:19 Resp 19 09/30/23 08:00 BP 145/68 09/30/23 08:00 Pulse Ox 97 09/30/23 08:00 FiO2 Intake & Output 09/29/23 09/30/23 09/30/23 18:59 06:59 18:59 Intake Total 780 380 Balance 780 380 Intake: Oral 780 380 Other: Voiding Method Toilet # Voids 1 2 # Bowel Movements 1 1 - Exam GENERAL EXAM: Alert, 87-year-old female, sitting up in a chair, on room air, in no apparent distress. HEAD: Normocephalic. Evidence of trauma to the bilateral face more so on the left. Status post fall EYES: Normal reaction of pupils, equal size. NOSE: Clear with pink turbinates. THROAT: No erythema or exudates. NECK: No masses, no JVD. CHEST: No chest wall deformity. LUNGS: Equal air entry with crackles in the left base. CVS: S1 and S2 normal with no audible murmur, regular rhythm. ABDOMEN: No hepatosplenomegaly, normal bowel sounds, no guarding or rigidity. SPINE: No scoliosis or deformity SKIN: No rashes CENTRAL NERVOUS SYSTEM: No focal deficits, tone is normal in all 4 extremities. EXTREMITIES: There is no peripheral edema. No clubbing, no cyanosis. Peripheral pulses are intact. - Labs CBC & Chem 7: 09/30/23 04:17 09/30/23 04:17 Labs: Abnormal Lab Results - Last 24 Hours (Table) 09/30/23 09/30/23 Range/Units 04:17 04:17 RBC 3.01 L (4.10-5.20) X 10*6/uL Hgb 8.1 L (12.0-15.0) g/dL Hct 26.1 L (37.2-46.3) % MCH 26.9 L (27.0-32.0) pg MCHC 31.0 L (32.0-37.0) g/dL RDW 16.1 H (11.5-14.5) % Sodium 133 L (135-145) mmol/L Carbon Dioxide 17.8 L (21.6-31.8) mmol/L Anion Gap 15.20 H (4.00-12.00) mmol/L BUN 61.0 H (9.0-27.0) mg/dL Creatinine 3.5 H (0.6-1.5) mg/dL Est GFR (CKD-EPI) 12 L (>=60) Calcium 8.5 L (8.7-10.3) mg/dL Total Bilirubin <0.2 L (0.3-1.2) mg/dL AST 12 L (13-35) U/L Alkaline Phosphatase 40 L (41-126) U/L Total Protein 5.7 L (6.2-8.2) g/dL Albumin 3.6 L (3.8-4.9) g/dL Microbiology - Last 24 Hours (Table) 09/28/23 08:30 Gram Stain - Preliminary Pleural Fluid Body Fluid Culture - Preliminary 09/28/23 08:30 Acid Fast Bacilli Smear - Preliminary Pleural Fluid 09/27/23 12:05 Blood Culture - Preliminary Blood 09/27/23 12:20 Blood Culture - Preliminary Blood Assessment and Plan Assessment: Dyspnea secondary to left sided pleural effusion. Suspect acute exacerbation of diastolic congestive heart failure. proBNP 20,300. Status post left-sided thoracentesis with 350 mL of fluid removed, follow-up chest x-ray shows improvement. Fluid transudate, negative for malignancy Recently seen in the emergency room status post fall with injury and ecchymosis to the face. No intracranial bleed. No cervical fractures Recent episodes of dizziness of unclear etiology Chronic kidney disease, current creatinine 3.5 Chronic anemia, current hemoglobin 8.1 History of hypertension Former smoker Suspect mild chronic obstructive pulmonary disease Plan: The patient was seen and evaluated Labs and medications reviewed Fluid cytology negative for malignancy Continue bronchodilators Continue oral diuretics Nephrology is following We will continue to follow I have personally seen and examined the patient, performed the documentation and the assessment and plan as written. Number of minutes spent on the visit: 10.
--- NOTE | 2023-09-30 13:26 | P.PN ---
Subjective patient is seen for follow-up for chronic kidney disease and acute kidney injury. serum creatinine stable at 3.5 mg/dL. Patient states she is feeling better today. No significant complaints. Objective - Vital Signs Vital signs: Vital Signs Temp 97.5 F L 09/30/23 08:00 Pulse 91 09/30/23 09:19 Resp 19 09/30/23 08:00 BP 145/68 09/30/23 08:00 Pulse Ox 97 09/30/23 08:00 FiO2 Intake & Output 09/29/23 09/30/23 09/30/23 18:59 06:59 18:59 Intake Total 780 380 Balance 780 380 Intake: Oral 780 380 Other: Voiding Method Toilet # Voids 1 2 # Bowel Movements 1 1 - Exam patient is awake, comfortable, no acute distress Examination of the heart S1 and S2 Examination of the lungs bilateral breath sounds are heard Abdomen is soft nontender examination of lower extremities shows no significant edema 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 - Labs CBC & Chem 7: 09/30/23 04:17 09/30/23 04:17 Labs: Abnormal Lab Results - Last 24 Hours (Table) 09/30/23 09/30/23 Range/Units 04:17 04:17 RBC 3.01 L (4.10-5.20) X 10*6/uL Hgb 8.1 L (12.0-15.0) g/dL Hct 26.1 L (37.2-46.3) % MCH 26.9 L (27.0-32.0) pg MCHC 31.0 L (32.0-37.0) g/dL RDW 16.1 H (11.5-14.5) % Sodium 133 L (135-145) mmol/L Carbon Dioxide 17.8 L (21.6-31.8) mmol/L Anion Gap 15.20 H (4.00-12.00) mmol/L BUN 61.0 H (9.0-27.0) mg/dL Creatinine 3.5 H (0.6-1.5) mg/dL Est GFR (CKD-EPI) 12 L (>=60) Calcium 8.5 L (8.7-10.3) mg/dL Total Bilirubin <0.2 L (0.3-1.2) mg/dL AST 12 L (13-35) U/L Alkaline Phosphatase 40 L (41-126) U/L Total Protein 5.7 L (6.2-8.2) g/dL Albumin 3.6 L (3.8-4.9) g/dL Microbiology - Last 24 Hours (Table) 09/28/23 08:30 Gram Stain - Preliminary Pleural Fluid Body Fluid Culture - Preliminary 09/28/23 08:30 Acid Fast Bacilli Smear - Preliminary Pleural Fluid 09/27/23 12:05 Blood Culture - Preliminary Blood 09/27/23 12:20 Blood Culture - Preliminary Blood Assessment and Plan Assessment: 1. Chronic kidney disease stage V with baseline creatinine near 3 secondary to nephrosclerosis. Renal function little worse from diuresis. Creatinine 3.5. 2. Status post recent fall with facial bruising. 3. Metabolic acidosis secondary to chronic kidney disease. On oral bicarb. 4. Anemia of chronic kidney disease. Iron deficiency noted. 5. Hypertension with chronic kidney disease. 6. Fluid overload status post left-sided thoracentesis with 350 cc drained September 28, 2023. 7. COPD exacerbation. Also on antibiotics for possible pneumonia - pff abx now. 8. Diabetes mellitus. 9. Acute on chronic diastolic CHF with moderate mitral regurgitation. Plan: continue current dose of Demadex Continue with sodium bicarb add Aranesp
[2023-09-30] MEDS: DARBEPOETIN ALFA 60 MCG/0.3 ML SYRINGE SQ SCH (17:16)
[2023-10-01] MEDS: TORSEMIDE 20 MG TAB PO SCH (08:45)
[2023-10-01] MEDS: LOSARTAN 25 MG TAB PO SCH (08:45)
[2023-10-01 09:21] LABS: HCT 25.5 % (37.2-46.3); HGB 8.3 g/dL (12.0-15.0); MCH 27.6 pg (27.0-32.0); MCHC 32.5 g/dL (32.0-37.0); MCV 84.7 FL (80.0-97.0); Mean Platelet Volume 10.2 FL (9.5-12.2); NRBC Per 100 WBC 0 X 10*3/uL (0.00-0.01); Platelet Count 292 X 10*3/uL (140-440); RBC 3.01 X 10*6/uL (4.10-5.20); RDW 16.1 % (11.5-14.5); WBC 7.63 X 10*3/uL (4.50-10.00)
[2023-10-01 09:45] LABS: ALT 12 U/L (8-44); AST 14 U/L (13-35); Albumin 3.7 g/dL (3.8-4.9); Albumin/Globulin Ratio 1.76 Ratio (1.60-3.17); Alkaline Phosphatase 42 U/L (41-126); BUN/Creat Ratio 17.42 Ratio (12.00-20.00); Blood Urea Nitrogen 66.2 mg/dL (9.0-27.0); Calcium 8.3 mg/dL (8.7-10.3); Carbon Dioxide 19.5 mmol/L (21.6-31.8); Chloride 98 mmol/L (96-109); Globulin 2.1 g/dL (1.6-3.3); Glucose 84 mg/dL (70-110); Sodium 133 mmol/L (135-145); Total Bilirubin 0.2 mg/dL (0.3-1.2); Total Protein 5.8 g/dL (6.2-8.2)
--- NOTE | 2023-10-01 11:57 | P.PN ---
Subjective patient is seen for follow-up for chronic kidney disease and acute kidney injury. serum creatinine stable at 3.5 mg/dL. increased to 3.8 today just finished shower and complaining of back pain and feeling tired. no complaints of shortness of breath or chest pain. 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 - Labs CBC & Chem 7: 10/01/23 06:23 10/01/23 06:23 Labs: Abnormal Lab Results - Last 24 Hours (Table) 10/01/23 10/01/23 Range/Units 06:23 06:23 RBC 3.01 L (4.10-5.20) X 10*6/uL Hgb 8.3 L (12.0-15.0) g/dL Hct 25.5 L (37.2-46.3) % RDW 16.1 H (11.5-14.5) % Sodium 133 L (135-145) mmol/L Carbon Dioxide 19.5 L (21.6-31.8) mmol/L Anion Gap 15.50 H (4.00-12.00) mmol/L BUN 66.2 H (9.0-27.0) mg/dL Creatinine 3.8 H (0.6-1.5) mg/dL Est GFR (CKD-EPI) 11 L (>=60) Calcium 8.3 L (8.7-10.3) mg/dL Total Bilirubin 0.2 L (0.3-1.2) mg/dL Total Protein 5.8 L (6.2-8.2) g/dL Albumin 3.7 L (3.8-4.9) g/dL Microbiology - Last 24 Hours (Table) 09/28/23 08:30 Gram Stain - Preliminary Pleural Fluid Body Fluid Culture - Preliminary 09/27/23 12:05 Blood Culture - Preliminary Blood 09/27/23 12:20 Blood Culture - Preliminary Blood Assessment and Plan Assessment: 1. Chronic kidney disease stage V with baseline creatinine near 3 secondary to nephrosclerosis. Renal function little worse from diuresis. Creatinine 3.5 for couple of days and increased to 3.8 today. Cozaar was restarted today. 2. Status post recent fall with facial bruising. 3. Metabolic acidosis secondary to chronic kidney disease. On oral bicarb. 4. Anemia of chronic kidney disease. Iron deficiency noted. 5. Hypertension with chronic kidney disease. 6. Fluid overload status post left-sided thoracentesis with 350 cc drained September 28, 2023. 7. COPD exacerbation. Also on antibiotics for possible pneumonia - pff abx now. 8. Diabetes mellitus. 9. Acute on chronic diastolic CHF with moderate mitral regurgitation. Plan: hold Cozaar as renal function has worsened. continue current dose of Demadex Continue with sodium bicarb no plans for renal replacement therapy.
--- NOTE | 2023-10-01 12:13 | P.PN ---
Subjective Progress Note Date: 10/01/23 This is a pleasant 87-year-old female patient who resides at [facility]. She has a history of chronic kidney disease, former smoker, hypertension. She also had been having issues with dizziness and had sustained a fall yesterday and was seen here in the emergency room, CT scan revealed a large scalp hematoma over the left supraorbital forehead. No evidence of fracture. No intracranial hemorrhage. No evidence of acute cervical spine fracture, no sustained injuries and was discharged home. She had developed increasing shortness of breath, cough and congestion. X-ray reveals a left lower lobe consolidation and small bilateral pleural effusions superimposed on background COPD. White count 5.6. Hemoglobin 7.5. Platelets 199. Sodium 138. Potassium 3.8. Bicarb 17. BUN 38. Creatinine 3.08. Urinalysis clean. Viral screen negative. She is seen today in consultation in the emergency department. She is currently sitting up on the stretcher. Awake and alert in no acute distress. Maintaining O2 saturations in the 90s on room air. She does have significant ecchymosis on the bilateral face more so on the left. No fever or chills. She is afebrile. Hemodynamically stable. The patient is seen today September 28, 2023 in follow-up on the regular medical floor. She is currently sitting up at the bedside. Awake and alert in no acute distress. Breathing a bit easier today compared to yesterday. Maintaining good O2 saturations in the 90s on room air. Her proBNP was over 20,000. Her procalcitonin was 0.09. She is still on ceftriaxone and azithromycin. Ultrasound of the left chest did show a 7.2 cm pocket. She had undergone left- sided thoracentesis today with Dr. Poole and approximately 325 MLS of cloudy yellow fluid was returned. Fluid analysis and cytology pending. White count 5.3. Hemoglobin 7.2. Platelets 211. Sodium 136. Potassium 4.2. Bicarb 18. BUN 43. Creatinine 3.0. Glucose 125. Troponin was negative x 1. She remains on oral diuretics. The patient is seen today September 29, 2023 in follow-up on the regular medical floor. She is awake and alert in no acute distress. Denies any worsening shortness of breath, cough or congestion. Follow-up chest x-ray reveals just a small amount of residual left pleural effusion. Fluid was transudate in nature with a protein of 2.6 and LDH of 81. Echocardiogram reveals a preserved left ventricular systolic function with ejection fraction 50 to 55%. Grade 1 diastolic dysfunction. Mitral regurgitation. Blood cultures revealed no growth. Pleural fluid cultures pending. Sodium 135. Potassium 4.5. Bicarb 17. BUN 51. Creatinine 3.5. Glucose 116. She continues on DuoNeb ventilations, Symbicort. Remains on oral diuretics. Iron replacement therapy. CT scan of the brain reveals no acute intracranial process. Left frontal scalp hematoma. Left periorbital soft tissue hematoma. The patient is seen today September 30, 2019 for follow-up on the regular medical floor. She is awake and alert in no acute distress. Currently sitting up in a chair at the bedside. Maintaining good O2 saturations in the 90s on room air. No worsening shortness of breath, cough or congestion. Blood and pleural fluid cultures are revealing no growth. White count 7.9. Hemoglobin 8.1. Platelets 274. Sodium 133. Potassium 4.3. Bicarb 15. BUN 61. Creatinine 3.5. She remains on bronchodilators, diuretics. The patient is seen today October 01, 2023 in follow-up on the regular medical floor. She is sitting up in a chair. Awake and alert in no acute distress. Denies any worsening shortness of breath, cough or congestion. Maintaining O2 saturations in the 90s on room air. Thoracentesis from September 28, 2023 was transudate with a protein of 2.6 and LDH of 81. Cytology negative for malignancy. Cultures revealed no growth. Blood cultures revealed no growth. White count 7.6. Hemoglobin 8.3. Platelets 292. Sodium 133. Potassium 4.0. Bicarb 20. BUN 66. Creatinine 3.8. Glucose 84. Continued on sodium bicarbonate tablets. Cozaar to be held. She remains on oral diuretics. Continued on bronchodilators. Objective - Vital Signs Vital signs: Vital Signs Temp 97.6 F 10/01/23 08:00 Pulse 86 10/01/23 11:22 Resp 16 10/01/23 08:00 BP 157/77 10/01/23 08:00 Pulse Ox 100 10/01/23 08:00 FiO2 Intake & Output 09/30/23 10/01/23 10/01/23 18:59 06:59 18:59 Intake Total 580 240 Balance 580 240 Intake: Oral 580 240 Other: Voiding Method Toilet Toilet # Voids 3 2 1 # Bowel Movements 1 - Exam GENERAL EXAM: Alert, very pleasant 87-year-old female, up in a chair, on room air, in no apparent distress. HEAD: Normocephalic. Evidence of trauma to the bilateral face more so on the left. Status post fall EYES: Normal reaction of pupils, equal size. NOSE: Clear with pink turbinates. THROAT: No erythema or exudates. NECK: No masses, no JVD. CHEST: No chest wall deformity. LUNGS: Equal air entry with crackles in the left base. CVS: S1 and S2 normal with no audible murmur, regular rhythm. ABDOMEN: No hepatosplenomegaly, normal bowel sounds, no guarding or rigidity. SPINE: No scoliosis or deformity SKIN: No rashes CENTRAL NERVOUS SYSTEM: No focal deficits, tone is normal in all 4 extremities. EXTREMITIES: There is no peripheral edema. No clubbing, no cyanosis. Peripheral pulses are intact. - Labs CBC & Chem 7: 10/01/23 06:23 10/01/23 06:23 Labs: Abnormal Lab Results - Last 24 Hours (Table) 10/01/23 10/01/23 Range/Units 06:23 06:23 RBC 3.01 L (4.10-5.20) X 10*6/uL Hgb 8.3 L (12.0-15.0) g/dL Hct 25.5 L (37.2-46.3) % RDW 16.1 H (11.5-14.5) % Sodium 133 L (135-145) mmol/L Carbon Dioxide 19.5 L (21.6-31.8) mmol/L Anion Gap 15.50 H (4.00-12.00) mmol/L BUN 66.2 H (9.0-27.0) mg/dL Creatinine 3.8 H (0.6-1.5) mg/dL Est GFR (CKD-EPI) 11 L (>=60) Calcium 8.3 L (8.7-10.3) mg/dL Total Bilirubin 0.2 L (0.3-1.2) mg/dL Total Protein 5.8 L (6.2-8.2) g/dL Albumin 3.7 L (3.8-4.9) g/dL Microbiology - Last 24 Hours (Table) 09/28/23 08:30 Gram Stain - Preliminary Pleural Fluid Body Fluid Culture - Preliminary 09/27/23 12:05 Blood Culture - Preliminary Blood 09/27/23 12:20 Blood Culture - Preliminary Blood Assessment and Plan Assessment: Dyspnea secondary to left sided pleural effusion. Suspect acute exacerbation of diastolic congestive heart failure. proBNP 20,300. Status post left-sided thoracentesis with 350 mL of fluid removed, follow-up chest x-ray shows improvement. Fluid transudate, negative for malignancy Recently seen in the emergency room status post fall with injury and ecchymosis to the face. No intracranial bleed. No cervical fractures Recent episodes of dizziness of unclear etiology Chronic kidney disease, current creatinine 3.8 Chronic anemia, current hemoglobin 8.3 History of hypertension Former smoker Suspect mild chronic obstructive pulmonary disease Plan: The patient was seen and evaluated Labs and medications reviewed Continue the current treatment plan Stable and on room air Home once cleared by nephrology I have personally seen and examined the patient, performed the documentation and the assessment and plan as written. Number of minutes spent on the visit: 10.
--- NOTE | 2023-10-01 13:22 | P.PN ---
Subjective Progress Note Date: 10/01/23 HISTORY OF PRESENT ILLNESS: 87-year-old one of my office patient with longstanding history of hypertension, hyperlipidemia, advanced chronic kidney disease stage IV, who also has chronic degenerative disc disease, chronic arthritis, chronic anemia with chronic edema Leydi sustained a fall on 09/26/2023 was seen in the emergency department story apparently for that she fell at home and hit her head on a hard floor developed slight swelling in the left thigh with large bruises she did not lose any consciousness developed to have mild headache discomfort and contusion on the forehead under the left eye and the right eye as well. Ended up coming to the emergency department by EMS her blood pressure was 199/78 pulse ox 97 percentile temperature was normal. Ended up having head and cervical spine CT showed large scalp hematoma over the left supraorbital forehead with no evidence of calvarial fracture no acute intracranial hemorrhage or midline shift or mass effect. Atrophy and chronic microvascular ischemic change only. Cervical spine showed moderate cervical spondylosis there is a slight emphysematous change on the top part of the lung with mild pleural calcification as well similar to clear exposure to asbestos with no pneumothorax. CT showed periorbital soft tissue thickening on the left with continuation into the left supraorbital scalp and partially imaged hematoma. Otherwise intact CT with no orbital fracture or evidence of major injury. She was treated apparently and sent home at the time. The patient returned at noon time to the emergency department today via EMS because of significant shortness of breath with cough and slightly bit respiratory distress she will open blow out a large patient usually does albuterol inhaler with a worsening dyspnea and shortness of breath with mild hypoxia and presented to the emergency department almost 24 hours. To the previous visit this time with her dyspnea and shortness of breath chest x-ray showed left lower lobe consolidation with small bilateral pleural effusion superimposed on background of COPD correlate with pneumonia. Stable appearing thoracic aortic ectasia or aneurysm. Laboratory value shows drop in hemoglobin 7.5 with white blood cell of 5.6, creatinine is quite bit worse at 3.08 with GFR running at 13. BNP was 20,300 UA was negative COVID RSV and influenza were all negative. So patient was diagnosed with slight respiratory distress consistent with pneumonia and worsening fluid overload with most likely congestive heart failure exacerbation and worsening renal function with chronic and acute anemia. 09/28/2023: Patient slept the night doing well no complication, continued to have slight cough and mild shortness of breath, legionnaire testing from yesterday came back to be negative, blood test this morning still pending. Ultrasound of the lung shows slight pleural effusion on the left side pulmonary might do thoracentesis today to drain it. Will start physical therapy and allow social worker aide to take some time to talk to patient and family to see if she is interested to go to SNF or can go back to [facility] with help with physical therapy and home care. 09/29/2023: The patient is slightly bit confused today, but perhaps slight tightness ambulating, with more and worsening shortness of breath, she was seen pulmonary early apparently had some more nebulizer management. Also was started on steroid this morning 1 more time. 1 dose of IV furosemide was prescribed. Will arrange for brain CAT scan to exclude any possibility since her closed head trauma with severe bruise. Patient still bedbound at this point not doing well with current IV antibiotics any physical therapy with slightly with worsening reactive airway and tight and wheezy patient will probably remain in the hospital on the weekend with try to do more physical therapy talk to the social worker aide about possibility of going to rehab on Monday. 09/30/2023: She is feeling slightly better since her paracentesis, had 300 cc of fluid drained mostly transudate no sign of infection and negative for blood, will continue current IV antibiotics the fluid probably happened because of fluid overload, heart failure and because of the kidney failure. Kidney failure is much worse today her GFR is down to 12, continue current management patient absolutely refused to go on dialysis continue iron infusion her hemoglobin is slightly bit better does not need any blood transfusion at this point. Patient still slightly bit confused at some point family believes still trying to get her to blow out her large with extra help she has. 10/01/2023: She is doing slightly better, still slightly bit confused, hemoglobin is up to 8.1, creatinine is declining GFR is down to 12 but CKD is up to 5 patient still refused dialysis at this point. proBNP still [address]14, the final pleural fluid shows no positive culture. Which is mostly transudate. Her facial bruise from her trauma is improving. Her mobility still significantly decreased and need help she is walking with a walker we will continue doing physical therapy. Again her potential probably for discharge either to go to SNF for her to go home with home care she lives in [facility] and having to arrange for extra help can be possible family are agreeable to and can make the arrangement. REVIEW OF SYSTEMS: CONSTITUTIONAL: Well-developed mild respiratory distress EYES: Slight swelling hematoma and major bruise over the left eye more than the right side with entire face and forehead covered with bruises from her injury yesterday with slight hematoma.. EARS, NOSE, MOUTH, THROAT, and FACE: No sore throat, lymphadenopathy, carotid bruits or deformity. RESPIRATORY: Positive shortness of breath cough or wheezes. CARDIOVASCULAR: Positive PND orthopnea palpitation. GASTROINTESTINAL: Slight abdominal discomfort with nausea no vomiting. GENITOURINARY: Decreased urine output with chronic kidney disease. INTEGUMENT/BREAST: Negative for any muscular injury with mild osteoarthritis.. HEMATOLOGIC/LYMPHATIC: Chronic anemia with hematoma and slight bruises on the facial area. MUSCULOSKELTAL: Negative for Myalgia or arthralgia. NEURLOGICAL: Slight confusion with worsening mentation. BEHAVIORAL/PSYCH: Negative. ENDOCRINE: Negative. PHYSICAL EXAMINATION: General Appearance: Alert, cooperative, slightly bit confused mild respiratory distress. Neck HEENT: Very large hematoma and bruise over the left eye forehead the right eye and to the cheek area on the facial area. Slight stiffness and discomfort in the neck area as well. Lungs: Decreased breath sound bilaterally with fine crackles bilaterally but worsening in the left base up to the middle of her lung with rhonchi and slight expiratory wheezes. Chest Wall: Decreased expansion with deep inspiration no tenderness and no deformity was found on exam, no costochondral pain or discomfort. Heart: Regular rate and rhythm, S1, S2 positive systolic murmur mild tachycardia. Back: Symmetric, slight curvature with mild scoliosis. Abdomen: Soft, non-tender, bowel sounds active positive midepigastric discomfort Extremities: Chronic edema with generalized vascular cellulitis of the lower extremity. Pulses: 2+ and symmetric. Skin: Skin color, texture, tugor normal, no rashes or lesions. Neurologic: Alert oriented with slight confusion cranial nerves II to XII intact positive generalized weakness with abnormal balance and gait. ASSESSMENT AND PLAN: _Severe dyspnea and shortness of breath: Combination of left lower lobe pneumonia, fluid overload and CHF, anemia, and mild COPD, along with pleural effusion. With the management for her pneumonia along with heart failure along with taking few 100 cc of pleural effusion had helped. _Left lower lobe pneumonia: Will start patient on Rocephin along with azithromycin still seen pulmonary still on aggressive management for left lower lobe pneumonia. _Left-sided pleural effusion: Post 300 cc of thoracentesis mostly transudate feeling better. _Congestive heart failure with mild exacerbation: Her echocardiogram came back with mildly increased septal wall thickening left ventricular ejection fraction is 50-55 percentile with abnormal left ventricular diastolic filling pattern, she had mild to moderate mitral annular calcification with moderate mitral regurgitation, small pericardial effusion with normal RV size. Despite the BNP is high this is probably the fluid overload related to her kidney failure with not able to clear the fluid with expected, despite having to do diuretics and pr obably small dose of ARB not quite sure that this can help her main management probably is dialysis to get rid of this extra fluid which is patient is refusing at this point. _COPD with remote history of smoking: Not clear with the patient cardiac to much to steroids systemic or not but she still on steroid nebulizer decide next updraft treatment. _Iron deficiency anemia with worsening anemia compared to before might benefit from iron infusion and hemoglobin still above 7.0, no transfusions required but this is expected to cause little bit more shortness of breath as well. _Stage 5 chronic kidney disease going into end-stage renal disease: Patient continues to refuse dialysis at this point we will continue conservative management for it and continue to see nephrology regular basis. _Closed head trauma with large hematoma of the left forehead, orbit and right side area, still having slight headache from the trauma with mild bruise neck continue Tylenol and muscle relaxer on as-needed basis. With the worsening mental status sent patient from her CAT scan today. _Altered mental status with worsening confusion: She had slight underlying memory loss with a close head trauma become slightly bit worse, keep watching for any worsening component and at some point patient probably will benefit from smaller dose of donepezil or rivastigmine. _Hypertension: With urgent blood pressure lately, continue amlodipine 5 mg a day, Coreg 12.5 mg twice a day, hydralazine 50 mg twice a day and continue torsemide at 10 mg daily. Prognosis: Fair. Discharge planning: Post thoracentesis with fluid down patient shortness of breath has improved some, continue to treat her pneumonia at this point management for her heart failure is different story her congestive heart failure is more diastolic dysfunction not been able to clear fluid status that well make it harder to get rid of her symptoms such thing will be explained to the family just to be aware of what they are going to expect in the next few months. Family conference: I had long discussion with patient's family after talking to her she is absolutely does not want to do any hemodialysis her creatinine has increased significantly and up to 3.8 today with GFR hardly at 10 patient without dialysis will continue having significant fluid overload and shortness of breath along with pleural effusion will happen repeatedly. I spoke with the son Chris trying to do transitional of care into hospice or palliative care he is going to talk to his siblings mostly his sister and will get back with me but as of today the plan is still probably to have his mom be discharged below at the [facility] with help will consult with hospice either in house or shortly after her discharge. Expectation again her potential return to hospital will be extremely high without dialysis because there is no management can clear her fluid overload and can keep her from having significant shortness of breath and pleural effusion without dialysis. Even losartan was started today as an initial step to see if it helps improve blood pressure and heart function nephrology had requested to stop it and Demadex was increased to 20 mg twice a day agreed to keep her on it for now. Objective - Vital Signs Vital signs: Vital Signs Temp 97.5 F L 10/01/23 02:00 Pulse 80 10/01/23 02:00 Resp 16 10/01/23 02:00 BP 155/79 10/01/23 02:00 Pulse Ox 96 10/01/23 02:00 FiO2 Intake & Output 09/30/23 10/01/23 10/01/23 18:59 06:59 18:59 Intake Total 580 Balance 580 Intake: Oral 580 Other: Voiding Method Toilet # Voids 3 2 - Labs CBC & Chem 7: 10/01/23 06:23 10/01/23 06:23 Labs: Abnormal Lab Results - Last 24 Hours (Table) 09/30/23 09/30/23 Range/Units 04:17 04:17 RBC 3.01 L (4.10-5.20) X 10*6/uL Hgb 8.1 L (12.0-15.0) g/dL Hct 26.1 L (37.2-46.3) % MCH 26.9 L (27.0-32.0) pg MCHC 31.0 L (32.0-37.0) g/dL RDW 16.1 H (11.5-14.5) % Sodium 133 L (135-145) mmol/L Carbon Dioxide 17.8 L (21.6-31.8) mmol/L Anion Gap 15.20 H (4.00-12.00) mmol/L BUN 61.0 H (9.0-27.0) mg/dL Creatinine 3.5 H (0.6-1.5) mg/dL Est GFR (CKD-EPI) 12 L (>=60) Calcium 8.5 L (8.7-10.3) mg/dL Total Bilirubin <0.2 L (0.3-1.2) mg/dL AST 12 L (13-35) U/L Alkaline Phosphatase 40 L (41-126) U/L Total Protein 5.7 L (6.2-8.2) g/dL Albumin 3.6 L (3.8-4.9) g/dL Microbiology - Last 24 Hours (Table) 09/27/23 12:05 Blood Culture - Preliminary Blood 09/27/23 12:20 Blood Culture - Preliminary Blood 09/28/23 08:30 Gram Stain - Preliminary Pleural Fluid Body Fluid Culture - Preliminary
[2023-10-02] MEDS: IPRATROPIUM-ALBUTEROL 3 ML NEB INHALATION PRN (00:49)
[2023-10-02] MEDS: ACETAMINOPHEN TAB 325 MG TAB PO PRN (04:15)
--- NOTE | 2023-10-02 08:42 | P.PN ---
Subjective Progress Note Date: 10/02/23 HISTORY OF PRESENT ILLNESS: 87-year-old one of my office patient with longstanding history of hypertension, hyperlipidemia, advanced chronic kidney disease stage IV, who also has chronic degenerative disc disease, chronic arthritis, chronic anemia with chronic edema Leydi sustained a fall on 09/26/2023 was seen in the emergency department story apparently for that she fell at home and hit her head on a hard floor developed slight swelling in the left thigh with large bruises she did not lose any consciousness developed to have mild headache discomfort and contusion on the forehead under the left eye and the right eye as well. Ended up coming to the emergency department by EMS her blood pressure was 199/78 pulse ox 97 percentile temperature was normal. Ended up having head and cervical spine CT showed large scalp hematoma over the left supraorbital forehead with no evidence of calvarial fracture no acute intracranial hemorrhage or midline shift or mass effect. Atrophy and chronic microvascular ischemic change only. Cervical spine showed moderate cervical spondylosis there is a slight emphysematous change on the top part of the lung with mild pleural calcification as well similar to clear exposure to asbestos with no pneumothorax. CT showed periorbital soft tissue thickening on the left with continuation into the left supraorbital scalp and partially imaged hematoma. Otherwise intact CT with no orbital fracture or evidence of major injury. She was treated apparently and sent home at the time. The patient returned at noon time to the emergency department today via EMS because of significant shortness of breath with cough and slightly bit respiratory distress she will open blow out a large patient usually does albuterol inhaler with a worsening dyspnea and shortness of breath with mild hypoxia and presented to the emergency department almost 24 hours. To the previous visit this time with her dyspnea and shortness of breath chest x-ray showed left lower lobe consolidation with small bilateral pleural effusion superimposed on background of COPD correlate with pneumonia. Stable appearing thoracic aortic ectasia or aneurysm. Laboratory value shows drop in hemoglobin 7.5 with white blood cell of 5.6, creatinine is quite bit worse at 3.08 with GFR running at 13. BNP was 20,300 UA was negative COVID RSV and influenza were all negative. So patient was diagnosed with slight respiratory distress consistent with pneumonia and worsening fluid overload with most likely congestive heart failure exacerbation and worsening renal function with chronic and acute anemia. 09/28/2023: Patient slept the night doing well no complication, continued to have slight cough and mild shortness of breath, legionnaire testing from yesterday came back to be negative, blood test this morning still pending. Ultrasound of the lung shows slight pleural effusion on the left side pulmonary might do thoracentesis today to drain it. Will start physical therapy and allow community mental health social worker to take some time to talk to patient and family to see if she is interested to go to SNF or can go back to [facility] with help with physical therapy and home care. 09/29/2023: The patient is slightly bit confused today, but perhaps slight tightness ambulating, with more and worsening shortness of breath, she was seen pulmonary early apparently had some more nebulizer management. Also was started on steroid this morning 1 more time. 1 dose of IV furosemide was prescribed. Will arrange for brain CAT scan to exclude any possibility since her closed head trauma with severe bruise. Patient still bedbound at this point not doing well with current IV antibiotics any physical therapy with slightly with worsening reactive airway and tight and wheezy patient will probably remain in the hospital on the weekend with try to do more physical therapy talk to the community mental health social worker about possibility of going to rehab on Monday. 09/30/2023: She is feeling slightly better since her thoracentesis, had 300 cc of fluid drained mostly transudate no sign of infection and negative for blood, will continue current IV antibiotics the fluid probably happened because of fluid overload, heart failure and because of the kidney failure. Kidney failure is much worse today her GFR is down to 12, continue current management patient absolutely refused to go on dialysis continue iron infusion her hemoglobin is slightly bit better does not need any blood transfusion at this point. Patient still slightly bit confused at some point family believes still trying to get her to blow out her large with extra help she has. 10/01/2023: She is doing slightly better, still slightly bit confused, hemoglobin is up to 8.1, creatinine is declining GFR is down to 12 but CKD is up to 5 patient still refused dialysis at this point. proBNP still [id number], the final pleural fluid shows no positive culture. Which is mostly transudate. Her facial bruise from her trauma is improving. Her mobility still significantly decreased and need help she is walking with a walker we will continue doing physical therapy. Again her potential probably for discharge either to go to SNF for her to go home with home care she lives in [facility] and having to arrange for extra help can be possible family are agreeable to and can make the arrangement. 10/02/2023: She is doing slightly better, continue to be confused, hemoglobin still running in the 8.0s, discussion with the family yesterday about their wishes and they are talking to each other about with the patient will be signing up for hospice at some point we will just continue assisted and blew out a large, expect some answer today hopefully will be meeting with the community mental health social worker to make the final conclusion. As of my concern patient be stable to be discharged home with extra help unless he wants to go to SNF with more help. Patient is absolutely against doing hemodialysis and family are supportive of her decision. Her worsening shortness of breath with the pleural effusion and recurrent sy mptoms are much better at this point which I expect again with pleural effusion to recur in the next 2 weeks. REVIEW OF SYSTEMS: CONSTITUTIONAL: Well-developed mild respiratory distress EYES: Slight swelling hematoma and major bruise over the left eye more than the right side with entire face and forehead covered with bruises from her injury yesterday with slight hematoma.. EARS, NOSE, MOUTH, THROAT, and FACE: No sore throat, lymphadenopathy, carotid bruits or deformity. RESPIRATORY: Positive shortness of breath cough or wheezes. CARDIOVASCULAR: Positive PND orthopnea palpitation. GASTROINTESTINAL: Slight abdominal discomfort with nausea no vomiting. GENITOURINARY: Decreased urine output with chronic kidney disease. INTEGUMENT/BREAST: Negative for any muscular injury with mild osteoarthritis.. HEMATOLOGIC/LYMPHATIC: Chronic anemia with hematoma and slight bruises on the facial area. MUSCULOSKELTAL: Negative for Myalgia or arthralgia. NEURLOGICAL: Slight confusion with worsening mentation. BEHAVIORAL/PSYCH: Negative. ENDOCRINE: Negative. PHYSICAL EXAMINATION: General Appearance: Alert, cooperative, slightly bit confused mild respiratory distress. Neck HEENT: Very large hematoma and bruise over the left eye forehead the right eye and to the cheek area on the facial area. Slight stiffness and discomfort in the neck area as well. Lungs: Decreased breath sound bilaterally with fine crackles bilaterally but worsening in the left base up to the middle of her lung with rhonchi and slight expiratory wheezes. Chest Wall: Decreased expansion with deep inspiration no tenderness and no deformity was found on exam, no costochondral pain or discomfort. Heart: Regular rate and rhythm, S1, S2 positive systolic murmur mild tachycard ia. Back: Symmetric, slight curvature with mild scoliosis. Abdomen: Soft, non-tender, bowel sounds active positive midepigastric discomfort Extremities: Chronic edema with generalized vascular cellulitis of the lower extremity. Pulses: 2+ and symmetric. Skin: Skin color, texture, tugor normal, no rashes or lesions. Neurologic: Alert oriented with slight confusion cranial nerves II to XII intact positive generalized weakness with abnormal balance and gait. ASSESSMENT AND PLAN: _Severe dyspnea and shortness of breath: Combination of left lower lobe pneumonia, fluid overload and CHF, anemia, and mild COPD, along with pleural effusion. With the management for her pneumonia along with heart failure along with taking 300 cc of pleural effusion had helped. _Left lower lobe pneumonia: Will start patient on Rocephin along with azithromycin still seen pulmonary still on aggressive management for left lower lobe pneumonia. _Left-sided pleural effusion: Post 300 cc of thoracentesis mostly transudate feeling better. _Congestive heart failure with mild exacerbation: Her echocardiogram came back with mildly increased septal wall thickening left ventricular ejection fraction is 50-55 percentile with abnormal left ventricular diastolic filling pattern, she had mild to moderate mitral annular calcification with moderate mitral regurgitation, small pericardial effusion with normal RV size. Despite the BNP is high this is probably the fluid overload related to her kidney failure with not able to clear the fluid with expected, despite having to do diuretics and probably small dose of ARB not quite sure that this can help her main management probably is dialysis to get rid of this extra fluid which is patient is refusing at this point. _COPD with remote history of smoking: Not clear with the patient cardiac to much to steroids systemic or not but she still on steroid nebulizer decide next updraft treatment. _Iron deficiency anemia with worsening anemia compared to before might benefit from iron infusion and hemoglobin still above 7.0, no transfusions required but this is expected to cause little bit more shortness of breath as well. _Stage 5 chronic kidney disease going into end-stage renal disease: Patient continues to refuse dialysis at this point we will continue conservative management for it and continue to see nephrology regular basis. _Closed head trauma with large hematoma of the left forehead, orbit and right side area, still having slight headache from the trauma with mild bruise neck continue Tylenol and muscle relaxer on as-needed basis. With the worsening mental status sent patient from her CAT scan today. _Altered mental status with worsening confusion: She had slight underlying memory loss with a close head trauma become slightly bit worse, keep watching for any worsening component and at some point patient probably will benefit from smaller dose of donepezil or rivastigmine. _Hypertension: With urgent blood pressure lately, continue amlodipine 5 mg a day, Coreg 12.5 mg twice a day, hydralazine 50 mg twice a day and continue torsemide at 10 mg daily. Prognosis: Guarded Discharge planning: She is doing slightly better today, after spoke with the family yesterday waiting for the decision whether she has been able to go out of large with visiting nurse or hospice care hours under opinion going to SNF with more help for now will be beneficial. They will let us know and hopefully will be able to discharge today. Hospital course: Patient was hospitalized with severe dyspnea and shortness of breath on the 26 September found to have pneumonia along with pleural effusion and worsening kidney function with anemia. Shortness of breath is multifactorial. She was started on antibiotics, seen pulmonary and ended up going for thoracentesis with 300 cc of fluid was mostly transudate. Also patient has been seen nephrology regular basis with significant decline in kidney function she is on stage V chronic kidney disease with GFR around 10 patient required dialysis to keep her alive otherwise without dialysis she is clinically declining gradually till then. She is DO NOT RESUSCITATE at this point and she does not want to go on dialysis and family are supportive. Discussion with the family about their wishes standard support and idea how to care for her one of them is to sign her up for hospice with bed early. Still waiting for them to get back with me whether she is going to go back to [facility] hospice or visiting nurse or she can benefit from going to SNF with extra help. Objective - Vital Signs Vital signs: Vital Signs Temp 97.9 F 10/02/23 02:00 Pulse 78 10/02/23 02:00 Resp 16 10/02/23 02:00 BP 141/59 10/02/23 02:00 Pulse Ox 98 10/02/23 02:00 FiO2 Intake & Output 10/01/23 10/01/23 10/02/23 06:59 18:59 06:59 Intake Total 660 Balance 660 Intake: Oral 660 Other: Voiding Method Toilet Toilet # Voids 2 1 1 # Bowel Movements 1 - Labs CBC & Chem 7: 10/01/23 06:23 10/01/23 06:23 Labs: Abnormal Lab Results - Last 24 Hours (Table) 10/01/23 10/01/23 Range/Units 06:23 06:23 RBC 3.01 L (4.10-5.20) X 10*6/uL Hgb 8.3 L (12.0-15.0) g/dL Hct 25.5 L (37.2-46.3) % RDW 16.1 H (11.5-14.5) % Sodium 133 L (135-145) mmol/L Carbon Dioxide 19.5 L (21.6-31.8) mmol/L Anion Gap 15.50 H (4.00-12.00) mmol/L BUN 66.2 H (9.0-27.0) mg/dL Creatinine 3.8 H (0.6-1.5) mg/dL Est GFR (CKD-EPI) 11 L (>=60) Calcium 8.3 L (8.7-10.3) mg/dL Total Bilirubin 0.2 L (0.3-1.2) mg/dL Total Protein 5.8 L (6.2-8.2) g/dL Albumin 3.7 L (3.8-4.9) g/dL Microbiology - Last 24 Hours (Table) 09/28/23 08:30 Gram Stain - Preliminary Pleural Fluid Body Fluid Culture - Preliminary
[2023-10-02 08:55] LABS: HCT 23.3 % (37.2-46.3); HGB 7.3 g/dL (12.0-15.0); MCH 27.1 pg (27.0-32.0); MCHC 31.3 g/dL (32.0-37.0); MCV 86.6 FL (80.0-97.0); Mean Platelet Volume 10.5 FL (9.5-12.2); NRBC Per 100 WBC 0 X 10*3/uL (0.00-0.01); Platelet Count 239 X 10*3/uL (140-440); RBC 2.69 X 10*6/uL (4.10-5.20); RDW 16.1 % (11.5-14.5); WBC 7.87 X 10*3/uL (4.50-10.00)
[2023-10-02 09:01] LABS: ALT 9 U/L (8-44); AST 10 U/L (13-35); Albumin 3.1 g/dL (3.8-4.9); Albumin/Globulin Ratio 1.72 Ratio (1.60-3.17); Alkaline Phosphatase 35 U/L (41-126); BUN/Creat Ratio 17.03 Ratio (12.00-20.00); Blood Urea Nitrogen 66.4 mg/dL (9.0-27.0); Calcium 7.7 mg/dL (8.7-10.3); Carbon Dioxide 20.2 mmol/L (21.6-31.8); Chloride 102 mmol/L (96-109); Globulin 1.8 g/dL (1.6-3.3); Glucose 91 mg/dL (70-110); Potassium 3.8 mmol/L (3.5-5.5); Sodium 135 mmol/L (135-145); Total Bilirubin <0.2 mg/dL (0.3-1.2); Total Protein 4.9 g/dL (6.2-8.2)
--- NOTE | 2023-10-02 11:46 | P.PN ---
Subjective patient is seen for follow-up for chronic kidney disease and acute kidney injury. serum creatinine stable at 3.5 mg/dL. increased to 3.8 yesterday. Cozaar was discontinued. Creatinine at 3.9 today. Overall patient states she is feeling better and has an improved appetite. Pain is controlled as well No complaints of chest pain or shortness of breath. Objective - Vital Signs Vital signs: Vital Signs Temp 98.1 F 10/02/23 08:00 Pulse 84 10/02/23 08:58 Resp 16 10/02/23 08:00 BP 132/68 10/02/23 08:00 Pulse Ox 100 10/02/23 08:00 FiO2 Intake & Output 10/01/23 10/02/23 10/02/23 18:59 06:59 18:59 Intake Total 660 120 Balance 660 120 Intake: Oral 660 120 Other: Voiding Method Toilet # Voids 1 2 # Bowel Movements 1 - Exam patient is awake, comfortable, no acute distress Examination of the heart S1 and S2 Examination of the lungs bilateral breath sounds are heard examination of lower extremities shows 1+ edema [employer] exam grossly intact - Labs CBC & Chem 7: 10/02/23 06:01 10/02/23 06:01 Labs: Abnormal Lab Results - Last 24 Hours (Table) 10/02/23 10/02/23 Range/Units 06:01 06:01 RBC 2.69 L (4.10-5.20) X 10*6/uL Hgb 7.3 L (12.0-15.0) g/dL Hct 23.3 L (37.2-46.3) % MCHC 31.3 L (32.0-37.0) g/dL RDW 16.1 H (11.5-14.5) % Carbon Dioxide 20.2 L (21.6-31.8) mmol/L Anion Gap 12.80 H (4.00-12.00) mmol/L BUN 66.4 H (9.0-27.0) mg/dL Creatinine 3.9 H (0.6-1.5) mg/dL Est GFR (CKD-EPI) 11 L (>=60) Calcium 7.7 L (8.7-10.3) mg/dL Total Bilirubin <0.2 L (0.3-1.2) mg/dL AST 10 L (13-35) U/L Alkaline Phosphatase 35 L (41-126) U/L Total Protein 4.9 L (6.2-8.2) g/dL Albumin 3.1 L (3.8-4.9) g/dL Microbiology - Last 24 Hours (Table) 09/28/23 08:30 Gram Stain - Final Pleural Fluid Body Fluid Culture - Final Assessment and Plan Assessment: 1. Chronic kidney disease stage V with baseline creatinine near 3 secondary to nephrosclerosis. Renal function little worse from diuresis. Creatinine 3.5 for couple of days and increased to 3.8 . received a dose of Cozaar but discontinued yesterday. 2. Status post recent fall with facial bruising. 3. Metabolic acidosis secondary to chronic kidney disease. On oral bicarb. 4. Anemia of chronic kidney disease. Iron deficiency noted. 5. Hypertension with chronic kidney disease. 6. Fluid overload status post left-sided thoracentesis with 350 cc drained September 28, 2023. 7. COPD exacerbation. Also on antibiotics for possible pneumonia - pff abx now. 8. Diabetes mellitus. 9. Acute on chronic diastolic CHF with moderate mitral regurgitation. Plan: continue off of angiotensin receptor blockers and Saw inhibitors continue current dose of Demadex Continue with sodium bicarb no plans for renal replacement therapy. Continue Aranesp
[2023-10-03 04:18] VITALS: TEMP 98.5
--- NOTE | 2023-10-03 07:33 | P.DS ---
Providers Date of admission: 09/29/23 07:47 Attending physician: Teo Madrid Consults: 09/27/23 11:54 Consult Physician Routine Consulting Provider: Stephen Poole Consult Reason/Comments: copd, pneumonia Do you want consulting provider notified?: Yes 09/27/23 18:33 Consult Physician Routine Consulting Provider: Caitlin Phipps Consult Reason/Comments: CKD 5 Do you want consulting provider notified?: Yes Primary care physician: [facility] Course: HISTORY OF PRESENT ILLNESS: 87-year-old one of my office patient with longstanding history of hypertension, hyperlipidemia, advanced chronic kidney disease stage IV, who also has chronic degenerative disc disease, chronic arthritis, chronic anemia with chronic edema Leydi sustained a fall on 09/26/2023 was seen in the emergency department story apparently for that she fell at home and hit her head on a hard floor developed slight swelling in the left thigh with large bruises she did not lose any consciousness developed to have mild headache discomfort and contusion on the forehead under the left eye and the right eye as well. Ended up coming to the emergency department by EMS her blood pressure was 199/78 pulse ox 97 percentile temperature was normal. Ended up having head and cervical spine CT showed large scalp hematoma over the left supraorbital forehead with no evidence of calvarial fracture no acute intracranial hemorrhage or midline shift or mass effect. Atrophy and chronic microvascular ischemic change only. Cervical spine showed moderate cervical spondylosis there is a slight emphysematous change on the top part of the lung with mild pleural calcification as well similar to clear exposure to asbestos with no pneumothorax. CT showed periorbital soft tissue thickening on the left with continuation into the left supraorbital scalp and partially imaged hematoma. Otherwise intact CT with no orbital fracture or evidence of major injury. She was treated apparently and sent home at the time. The patient returned at noon time to the emergency department today via EMS because of significant shortness of breath with cough and slightly bit respiratory distress she will open blow out a large patient usually does albuterol inhaler with a worsening dyspnea and shortness of breath with mild hypoxia and presented to the emergency department almost 24 hours. To the previous visit this time with her dyspnea and shortness of breath chest x-ray showed left lower lobe consolidation with small bilateral pleural effusion superimposed on background of COPD correlate with pneumonia. Stable appearing thoracic aortic ectasia or aneurysm. Laboratory value shows drop in hemoglobin 7.5 with white blood cell of 5.6, creatinine is quite bit worse at 3.08 with GFR running at 13. BNP was 20,300 UA was negative COVID RSV and influenza were all negative. So patient was diagnosed with slight respiratory distress consistent with pneumonia and worsening fluid overload with most likely congestive heart failure exacerbation and worsening renal function with chronic and acute anemia. 09/28/2023: Patient slept the night doing well no complication, continued to have slight cough and mild shortness of breath, legionnaire testing from yesterday came back to be negative, blood test this morning still pending. Ultrasound of the lung shows slight pleural effusion on the left side pulmonary might do thoracentesis today to drain it. Will start physical therapy and allow director social to take some time to talk to patient and family to see if she is interested to go to SNF or can go back to [facility] with help with physical therapy and home care. 09/29/2023: The patient is slightly bit confused today, but perhaps slight tightness ambulating, with more and worsening shortness of breath, she was seen pulmonary early apparently had some more nebulizer management. Also was started on steroid this morning 1 more time. 1 dose of IV furosemide was prescribed. Will arrange for brain CAT scan to exclude any possibility since her closed head trauma with severe bruise. Patient still bedbound at this point not doing well with current IV antibiotics any physical therapy with slightly with worsening reactive airway and tight and wheezy patient will probably remain in the hospital on the weekend with try to do more physical therapy talk to the director social about possibility of going to rehab on Monday. 09/30/2023: She is feeling slightly better since her thoracentesis, had 300 cc of fluid drained mostly transudate no sign of infection and negative for blood, will continue current IV antibiotics the fluid probably happened because of fluid overload, heart failure and because of the kidney failure. Kidney failure is much worse today her GFR is down to 12, continue current management patient absolutely refused to go on dialysis continue iron infusion her hemoglobin is slightly bit better does not need any blood transfusion at this point. Patient still slightly bit confused at some point family believes still trying to get her to blow out her large with extra help she has. 10/01/2023: She is doing slightly better, still slightly bit confused, hemoglobin is up to 8.1, creatinine is declining GFR is down to 12 but CKD is up to 5 patient still refused dialysis at this point. proBNP still [id number], the final pleural fluid shows no positive culture. Which is mostly transudate. Her facial bruise from her trauma is improving. Her mobility still significantly decreased and need help she is walking with a walker we will continue doing physical therapy. Again her potential probably for discharge either to go to SNF for her to go home with home care she lives in [facility] and having to arrange for extra help can be possible family are agreeable to and can make the arrangement. 10/02/2023: She is doing slightly better, continue to be confused, hemoglobin still running in the 8.0s, discussion with the family yesterday about their wishes and they are talking to each other about with the patient will be signing up for hospice at some point we will just continue assisted and blew out a large, expect some answer today hopefully will be meeting with the director social to make the final conclusion. As of my concern patient be stable to be discharged home with extra help unless he wants to go to SNF with more help. Patient is absolutely against doing hemodialysis and family are supportive of her decision. Her worsening shortness of breath with the pleural effusion and recurrent symptoms are much better at this point which I expect again with pleural effusion to recur in the next 2 weeks. REVIEW OF SYSTEMS: CONSTITUTIONAL: Well-developed mild respiratory distress EYES: Slight swelling hematoma and major bruise over the left eye more than the right side with entire face and forehead covered with bruises from her injury yesterday with slight hematoma.. EARS, NOSE, MOUTH, THROAT, and FACE: No sore throat, lymphadenopathy, carotid bruits or deformity. RESPIRATORY: Positive shortness of breath cough or wheezes. CARDIOVASCULAR: Positive PND orthopnea palpitation. GASTROINTESTINAL: Slight abdominal discomfort with nausea no vomiting. GENITOURINARY: Decreased urine output with chronic kidney disease. INTEGUMENT/BREAST: Negative for any muscular injury with mild osteoarthritis.. HEMATOLOGIC/LYMPHATIC: Chronic anemia with hematoma and slight bruises on the facial area. MUSCULOSKELTAL: Negative for Myalgia or arthralgia. NEURLOGICAL: Slight confusion with worsening mentation. BEHAVIORAL/PSYCH: Negative. ENDOCRINE: Negative. PHYSICAL EXAMINATION: General Appearance: Alert, cooperative, slightly bit confused mild respiratory distress. Neck HEENT: Very large hematoma and bruise over the left eye forehead the right eye and to the cheek area on the facial area. Slight stiffness and discomfort in the neck area as well. Lungs: Decreased breath sound bilaterally with fine crackles bilaterally but worsening in the left base up to the middle of her lung with rhonchi and slight expiratory wheezes. Chest Wall: Decreased expansion with deep inspiration no tenderness and no deformity was found on exam, no costochondral pain or discomfort. Heart: Regular rate and rhythm, S1, S2 positive systolic murmur mild tachycardia. Back: Symmetric, slight curvature with mild scoliosis. Abdomen: Soft, non-tender, bowel sounds active positive midepigastric discomfort Extremities: Chronic edema with generalized vascular cellulitis of the lower extremity. Pulses: 2+ and symmetric. Skin: Skin color, texture, tugor normal, no rashes or lesions. Neurologic: Alert oriented with slight confusion cranial nerves II to XII intact positive generalized weakness with abnormal balance and gait. ASSESSMENT AND PLAN: _Severe dyspnea and shortness of breath: Combination of left lower lobe pneumonia, fluid overload and CHF, anemia, and mild COPD, along with pleural effusion. With the management for her pneumonia along with heart failure along with taking 300 cc of pleural effusion had helped. _Left lower lobe pneumonia: Will start patient on Rocephin along with azithromycin still seen pulmonary still on aggressive management for left lower lobe pneumonia. _Left-sided pleural effusion: Post 300 cc of thoracentesis mostly transudate feeling better. _Congestive heart failure with mild exacerbation: Her echocardiogram came back with mildly increased septal wall thickening left ventricular ejection fraction is 50-55 percentile with abnormal left ventricular diastolic filling pattern, she had mild to moderate mitral annular calcification with moderate mitral regurgitation, small pericardial effusion with normal RV size. Despite the BNP is high this is probably the fluid overload related to her kidney failure with not able to clear the fluid with expected, despite having to do diuretics and probably small dose of ARB not quite sure that this can help her main management probably is dialysis to get rid of this extra fluid which is patient is refusing at this point. _COPD with remote history of smoking: Not clear with the patient cardiac to much to steroids systemic or not but she still on steroid nebulizer decide next updraft treatment. _Iron deficiency anemia with worsening anemia compared to before might benefit from iron infusion and hemoglobin still above 7.0, no transfusions required but this is expected to cause little bit more shortness of breath as well. _Stage 5 chronic kidney disease going into end-stage renal disease: Patient continues to refuse dialysis at this point we will continue conservative management for it and continue to see nephrology regular basis. _Closed head trauma with large hematoma of the left forehead, orbit and right side area, still having slight headache from the trauma with mild bruise neck continue Tylenol and muscle relaxer on as-needed basis. With the worsening mental status sent patient from her CAT scan today. _Altered mental status with worsening confusion: She had slight underlying memory loss with a close head trauma become slightly bit worse, keep watching for any worsening component and at some point patient probably will benefit from smaller dose of donepezil or rivastigmine. _Hypertension: With urgent blood pressure lately, continue amlodipine 5 mg a day, Coreg 12.5 mg twice a day, hydralazine 50 mg twice a day and continue torsemide at 10 mg daily. Prognosis: Guarded Discharge planning: She is doing slightly better today, after spoke with the family yesterday waiting for the decision whether she has been able to go out of large with visiting nurse or hospice care hours under opinion going to SNF with more help for now will be beneficial. They will let us know and hopefully will be able to discharge today. Hospital course: Patient was hospitalized with severe dyspnea and shortness of breath on the 26 September found to have pneumonia along with pleural effusion and worsening kidney function with anemia. Shortness of breath is multifactorial. She was started on antibiotics, seen pulmonary and ended up going for thoracentesis with 300 cc of fluid was mostly transudate. Also patient has been seen nephrology regular basis with significant decline in kidney function she is on stage V chronic kidney disease with GFR around 10 patient required dialysis to keep her alive otherwise without dialysis she is clinically declining gradually till then. She is DO NOT RESUSCITATE at this point and she does not want to go on dialysis and family are supportive. Discussion with the family about their wishes standard support and idea how to care for her one of them is to sign her up for hospice with bed early. Still waiting for them to get back with me whether she is going to go back to [facility] hospice or visiting nurse or she can benefit from going to SNF with extra help. Time spent on discharge the patient was over 35 minutes. Patient Condition at Discharge: Stable Plan - Discharge Summary New Discharge Prescriptions: New hydrALAZINE HCL [Apresoline] 75 mg PO TID #90 tab Fluticasone/Vilanterol [Breo Ellipta 100-25 Mcg Inhalr] 1 each IH AC-BID #1 each Torsemide [Demadex] 20 mg PO BID #60 tab Epoetin Duncan [Procrit] 1 unit SQ WEEKLY #4 each Pantoprazole [Protonix] 40 mg PO AC-BRKFST #30 tab Sodium Bicarbonate Tab 650 mg PO TID #90 tab Continue amLODIPine [Norvasc] 5 mg PO DAILY tab Acetaminophen Tab [Tylenol] 650 mg PO Q6HR PRN tab PRN Reason: Mild Pain Or Fever > 100.5 Magnesium Hydroxide [Milk of Magnesia] 2,400 mg PO DAILY PRN PRN Reason: no BM for 2 days Megestrol [Megace] 400 mg PO DAILY Cyanocobalamin (Vitamin B-12) [Vitamin B-12] 1,000 mcg PO DAILY Multivit-Min/Iron/Folic/Lutein [Centrum Silver Women Tablet] 1 tab PO DAILY Yloanda-Tussin Dm 10 ml PO Q6H PRN PRN Reason: Cough Albuterol Sulfate [Albuterol Sulfate Hfa] 2 puff PO RT-Q4H PRN PRN Reason: Shortness Of Breath carvediloL [Coreg*] 12.5 mg PO BID-W/MEALS tab Folic Acid 1 mg PO DAILY #30 tab Sennosides-Docusate Sodium [Senokot-S] 1 tab PO BID PRN PRN Reason: Constipation Discontinued hydrALAZINE HCL [Apresoline] 50 mg PO BID-W/MEALS Na Phos,M-B/Na Phos,Di-Ba [Fleet Adult] 133 ml RECTAL DAILY PRN PRN Reason: Constipation Torsemide [Demadex] 10 mg PO DAILY Discharge Medication List Albuterol Sulfate [Albuterol Sulfate Hfa] 2 puff PO RT-Q4H PRN 06/23/23 [History] Acetaminophen Tab [Tylenol] 650 mg PO Q6HR PRN tab 06/29/23 [Rx] Folic Acid 1 mg PO DAILY #30 tab 06/29/23 [Rx] amLODIPine [Norvasc] 5 mg PO DAILY tab 06/29/23 [Rx] carvediloL [Coreg*] 12.5 mg PO BID-W/MEALS tab 06/29/23 [Rx] Cyanocobalamin (Vitamin B-12) [Vitamin B-12] 1,000 mcg PO DAILY 09/27/23 [History] Yolanda-Tussin Dm 10 ml PO Q6H PRN 09/27/23 [History] Magnesium Hydroxide [Milk of Magnesia] 2,400 mg PO DAILY PRN 09/27/23 [History] Megestrol [Megace] 400 mg PO DAILY 09/27/23 [History] Multivit-Min/Iron/Folic/Lutein [Centrum Silver Women Tablet] 1 tab PO DAILY 09/27/23 [History] Sennosides-Docusate Sodium [Senokot-S] 1 tab PO BID PRN 09/27/23 [History] Epoetin Duncan [Procrit] 1 unit SQ WEEKLY #4 each 10/02/23 [Rx] Fluticasone/Vilanterol [Breo Ellipta 100-25 Mcg Inhalr] 1 each IH AC-BID #1 each 10/02/23 [Rx] Pantoprazole [Protonix] 40 mg PO AC-BRKFST #30 tab 10/02/23 [Rx] Sodium Bicarbonate Tab 650 mg PO TID #90 tab 10/02/23 [Rx] Torsemide [Demadex] 20 mg PO BID #60 tab 10/02/23 [Rx] hydrALAZINE HCL [Apresoline] 75 mg PO TID #90 tab 10/02/23 [Rx] Follow up Appointment(s)/Referral(s): Stephen Poole MD [STAFF PHYSICIAN] - 10/10/23 9:15 am Caitlin Phipps MD [STAFF PHYSICIAN] - 1 Week Teo Madrid MD [Primary Care Provider] - 1-2 days Discharge Disposition: TRANSFER TO SNF/ECF
[2023-10-03 08:02] VITALS: BP 149/51; RESP 17
[2023-10-03 09:26] VITALS: PULSE 88
--- NOTE | 2023-10-11 08:29 | CDI ---
Documentation Clarification Form Date: 10/11/2023 From: Cary Murphy Admit Date: 09/29/2023 07:47:00 AM Patient Name: Esha Watson Visit Number: [id number] Discharge Date: 10/03/2023 11:00:00 AM ATTENTION: The Clinical Documentation Specialists (CDI) and [facility] Coding Staff appreciate your assistance in clarifying documentation. Please respond to the clarification below the line at the bottom and electronically sign. The CDI & [facility] Coding staff will review the response and follow-up if needed. Please note: Queries are made part of the Legal Health Record. If you have any questions, please contact the author of this message via ITS. Dr. Teo Madrid, Cellulitis of the lower extremity is documented in the H&P. Additional clarification regarding the type of cellulitis is requested. History/risk factors: HTN w acute & chronic diastolic CHF & ESRD, LEIA, pneumonia, COPD, anemia in CKD, T2DM Clinical Indicators: Chronicedemawith generalized vascularcellulitis of the lower extremity. Treatment: IV antibiotics Please clarify the laterality of cellulitis of the lower extremity, if known: [ ] Left [ ] Right [ xx ] Bilatera; [ ] Other, please specify: [ ] Unable to determine MTDD
== END 2023-10-03 11:00 | DRG 291 ==
LOC: EC 09:05 → 6NMEDSUR 11:54 → INTOOBSV 11:54 → 6NMEDSUR 12:20 → OBSVTOIN 09-29 07:47
PROVIDERS: ADMIT Internal Medicine Geriatric Medicine; ATTEND Internal Medicine Geriatric Medicine
PROC: 0W9B3ZX Drainage of Left Pleural Cavity, Percutaneous Approach, Diagnostic (ICD-10-PCS; principal; 2023-09-28)
DX: I13.2 Hypertensive heart and chronic kidney disease with heart failure and with stage 5 chronic kidney disease, or end stage renal disease (principal); I50.33 Acute on chronic diastolic (congestive) heart failure; J18.9 Pneumonia, unspecified organism; N18.6 End stage renal disease; I31.39 Other pericardial effusion (noninflammatory); N17.9 Acute kidney failure, unspecified; E87.20 Acidosis, unspecified; J44.0 Chronic obstructive pulmonary disease with (acute) lower respiratory infection; J44.1 Chronic obstructive pulmonary disease with (acute) exacerbation; L03.116 Cellulitis of left lower limb; L03.115 Cellulitis of right lower limb; D63.1 Anemia in chronic kidney disease; E11.22 Type 2 diabetes mellitus with diabetic chronic kidney disease; D50.9 Iron deficiency anemia, unspecified; I08.0 Rheumatic disorders of both mitral and aortic valves; E78.5 Hyperlipidemia, unspecified; I77.810 Thoracic aortic ectasia; Z91.158 Patient's noncompliance with renal dialysis for other reason; Z66 Do not resuscitate; M47.812 Spondylosis without myelopathy or radiculopathy, cervical region; R06.03 Acute respiratory distress; S00.83XA Contusion of other part of head, initial encounter; S00.03XA Contusion of scalp, initial encounter; S70.12XA Contusion of left thigh, initial encounter; M19.90 Unspecified osteoarthritis, unspecified site; M54.9 Dorsalgia, unspecified; Z79.818 Long term (current) use of other agents affecting estrogen receptors and estrogen levels; Z79.899 Other long term (current) drug therapy; Z74.01 Bed confinement status; Z87.891 Personal history of nicotine dependence; Z96.659 Presence of unspecified artificial knee joint; W19.XXXA Unspecified fall, initial encounter; Y92.009 Unspecified place in unspecified non-institutional (private) residence as the place of occurrence of the external cause
CPT/HCPCS: 36415; 70450; 71045; 71046; 76604; 80048; 80053; 81001; 82728; 83540; 83550; 83615; 83735; 83880; 84145; 84157; 84484; 85025; 85027; 87040; 87070; 87102; 87116; 87205; 87206; 87449; 87496; 87498; 87502; 87529; 87634; 87635; 87636; 87798; 88108; 88305; 89050; 93005; 93306; 94640; 96361; 96365; 96367; 96375; 99285

== ENCOUNTER 2023-10-13 09:28 | Emergency (ER) | payer MEDICARE, BC ==
--- NOTE | 2023-10-13 09:42 | ED ---
General Adult HPI - General Stated complaint: ROSI Time Seen by Provider: 10/13/23 09:30 Source: patient, RN notes reviewed, old records reviewed - History of Present Illness Initial comments: This is an 87-year-old female who presents to the emergency department complaining of weakness and difficulty breathing. According to EMS and the catheter she was quite wheezy and satting 90 to 93% on room air they gave her breathing treatment she came up to 95%. Patient states she still feels short of breath. Patient also has quite a bit of edema in her arms and her legs and she states it is worse than baseline. Patient denies any fever chills or cough. Patient denies any chest pain or palpitations. Patient has abdominal pain patient has nausea vomiting diarrhea - Related Data Home Medications Medication Instructions Recorded Confirmed Albuterol Sulfate [Albuterol 2 puff PO RT-Q4H PRN 06/23/23 10/13/23 Sulfate Hfa] Cyanocobalamin (Vitamin B-12) 1,000 mcg PO DAILY 09/27/23 10/13/23 [Vitamin B-12] Yolanda-Tussin Dm 10 ml PO Q6H PRN 09/27/23 10/13/23 Magnesium Hydroxide [Milk of 2,400 mg PO DAILY PRN 09/27/23 10/13/23 Magnesia] Megestrol [Megace] 400 mg PO DAILY 09/27/23 10/13/23 Multivit-Min/Iron/Folic/Lutein 1 tab PO DAILY 09/27/23 10/13/23 [Centrum Silver Women Tablet] Sennosides-Docusate Sodium 1 tab PO BID PRN 09/27/23 10/13/23 [Senokot-S] Epoetin Duncan [Procrit] 1 unit SQ MO 10/13/23 10/13/23 Fluticasone/Vilanterol [Breo 1 puff INHALATION AC-BID 10/13/23 10/13/23 Ellipta 100-25 Mcg Inhalr] Ipratropium-Albuterol Nebulize 3 ml INHALATION RT-Q6H PRN 10/13/23 10/13/23 [Duoneb 0.5 mg-3 mg/3 ml Soln] Ipratropium-Albuterol Nebulize 3 ml INHALATION RT-QID 10/13/23 10/13/23 [Duoneb 0.5 mg-3 mg/3 ml Soln] Na Phos,M-B/Na Phos,Di-Ba [Fleet 133 ml RECTAL DAILY PRN 10/13/23 10/13/23 Adult] Previous Rx's Medication Instructions Recorded Acetaminophen Tab [Tylenol] 650 mg PO Q6HR PRN tab 06/29/23 Folic Acid 1 mg PO DAILY #30 tab 06/29/23 amLODIPine [Norvasc] 5 mg PO DAILY tab 06/29/23 carvediloL [Coreg*] 12.5 mg PO BID-W/MEALS tab 06/29/23 Pantoprazole [Protonix] 40 mg PO AC-BRKFST #30 tab 10/02/23 Sodium Bicarbonate Tab 650 mg PO TID #90 tab 10/02/23 Torsemide [Demadex] 20 mg PO BID #60 tab 10/02/23 hydrALAZINE HCL [Apresoline] 75 mg PO TID #90 tab 10/02/23 Allergies Allergy/AdvReac Type Severity Reaction Status Date / Time No Known Allergies Allergy Verified 10/13/23 10:15 Review of Systems ROS Statement: Those systems with pertinent positive or pertinent negative responses have been documented in the HPI. ROS Other: All systems not noted in ROS Statement are negative. Past Medical History Past Medical History: Hypertension Additional Past Medical History / Comment(s): kidney failure History of Any Multi-Drug Resistant Organisms: None Reported Past Surgical History: Joint Replacement Additional Past Surgical History / Comment(s): knees replaced Past Psychological History: No Psychological Hx Reported Smoking Status: Former smoker Past Alcohol Use History: Occasional Past Drug Use History: None Reported General Exam - General Exam Comments Initial Comments: GENERAL: Patient is well-developed and well-nourished. Patient is nontoxic and well- hydrated and is in mild distress. ENT: Neck is soft and supple. No significant lymphadenopathy is noted. Oropharynx is clear. Moist mucous membranes. EYES: The sclera were anicteric and conjunctiva were pink and moist. Extraocular movements were intact and pupils were equal round and reactive to light. Eyelids were unremarkable. PULMONARY: Diffuse wheezing CARDIOVASCULAR: There is a regular rate and rhythm without any murmurs gallops or rubs. ABDOMEN: Soft and nontender with normal bowel sounds. SKIN: Skin is clear with no lesions or rashes and otherwise unremarkable. NEUROLOGIC: Patient is alert and oriented x3. Cranial nerves II through XII are grossly intact. Motor and sensory are also intact. Normal speech, volume and content. Symmetrical smile. MUSCULOSKELETAL: Normal extremities with adequate strength and full range of motion. 4+ edema all 4 extremities LYMPHATICS: No significant lymphadenopathy is noted PSYCHIATRIC: Normal psychiatric evaluation. Course Vital Signs 10/13/23 10/13/23 10/13/23 09:31 09:41 10:23 Temperature 97.6 F Pulse Rate 82 74 Respiratory 18 18 18 Rate Blood Pressure 174/85 O2 Sat by Pulse 95 Oximetry 10/13/23 10/13/23 10/13/23 10:32 10:35 11:45 Temperature Pulse Rate 70 78 75 Respiratory 18 18 18 Rate Blood Pressure 169/78 172/81 O2 Sat by Pulse 99 95 Oximetry 10/13/23 12:47 Temperature Pulse Rate 87 Respiratory 18 Rate Blood Pressure 170/95 O2 Sat by Pulse 96 Oximetry Medical Decision Making - Medical Decision Making EKG is interpreted by myself read EKG shows sinus rhythm at 78 bpm [place] interval 177 QRS is 144 QT interval is 441 QTc is 474. Patient has a left bundle branch block. Was pt. sent in by a medical professional or institution (, PA, HEALTH ECONOMIST, urgent care, hospital, or senior living...) When possible be specific @ -No Did you speak to anyone other than the patient for history (EMS, parent, family, police, friend...)? What history was obtained from this source @ -No Did you review nursing and triage notes (agree or disagree)? Why? @ -I reviewed and agree with nursing and triage notes Were old charts reviewed (outside hosp., previous admission, EMS record, old EKG, old radiological studies, urgent care reports/EKG's, senior living records)? Report findings @ -I reviewed prior BNP and the lab work against today's lab work and it was the same. I also looked at the chest x-ray and compared to today send today showed a little bit more fluid on the lungs. Differential Diagnosis (chest pain, altered mental status, abdominal pain women, abdominal pain men, vaginal bleeding, weakness, fever, dyspnea, syncope, headache, dizziness, GI bleed, back pain, seizure, CVA, palpatations, mental health, musculoskeletal)? @ -Not applicable EKG interpreted by me (3pts min.). @ -As above X-rays interpreted by me (1pt min.). @ -Mild pulmonary edema CT interpreted by me (1pt min.). @ -None done U/S interpreted by me (1pt. min.). @ -None done What testing was considered but not performed or refused? (CT, X-rays, U/S, labs)? Why? @ -None What meds were considered but not given or refused? Why? @ -None Did you discuss the management of the patient with other professionals (professionals i.e. DrAlejandrina, PA, HEALTH ECONOMIST, lab, RT, psych nurse, delinquency prevention social worker, river tester, teacher, chief environmental commitment officer, case operator)? Give summary @ -I spoke with Dr. Madrid he was in agreement with admitting the patient Was smoking cessation discussed for >3mins.? @ -No Was critical care preformed (if so, how long)? @ -No Were there social determinants of health that impacted care today? How? (Homelessness, low income, unemployed, alcoholism, drug addiction, transportation, low edu. Level, literacy, decrease access to med. care, half-way, rehab)? @ -No Was there de-escalation of care discussed even if they declined (Discuss DNR or withdrawal of care, Hospice)? DNR status @ -No What co-morbidities impacted this encounter? (DM, HTN, Smoking, COPD, CAD, Cancer, CVA, ARF, Chemo, Hep., AIDS, mental health diagnosis, sleep apnea, morbid obesity)? @ -None Was patient admitted / discharged? Hospital course, mention meds given and route, prescriptions, significant lab abnormalities, going to OR and other pertinent info. @ -Patient was given Lasix in the emergency department I spoke with the patient and the want to talk to hospice. Hospice did come down and speak with him and patient decided to go home on hospice. Dr. Madrid was contacted and informed that the patient was going home on hospice Undiagnosed new problem with uncertain prognosis? @ -No Drug Therapy requiring intensive monitoring for toxicity (Heparin, Nitro, Insulin, Cardizem)? @ -No Were any procedures done? @ -No Diagnosis/symptom? @ -Pulmonary edema Acute, or Chronic, or Acute on Chronic? @ -Acute Uncomplicated (without systemic symptoms) or Complicated (systemic symptoms)? @ -Complicated Side effects of treatment? @ -No Exacerbation, Progression, or Severe Exacerbation? @ -No Poses a threat to life or bodily function? How? (Chest pain, [place], [place], pneumonia, PE, COPD, DKA, ARF, appy, cholecystitis, CVA, Diverticulitis, Homicidal, Suicidal, threat to staff... and all critical care pts) @ -Yes this could lead to hypoxia and endorgan dysfunction and possible Diagnosis/symptom? @ -Hospice Acute, or Chronic, or Acute on Chronic? @ -Acute Uncomplicated (without systemic symptoms) or Complicated (systemic symptoms)? @ -Uncomplicated Side effects of treatment? @ -None Exacerbation, Progression, or Severe Exacerbation] @ -No Poses a threat to life or bodily function? @ -No - Lab Data Result diagrams: 10/13/23 09:49 10/13/23 09:49 Lab Results 10/13/23 10/13/23 10/13/23 Range/Units 09:49 09:49 09:49 WBC 7.2 (3.8-10.6) k/uL RBC 2.95 L (3.80-5.40) m/uL Hgb 8.3 L (11.4-16.0) gm/dL Hct 25.5 L (34.0-46.0) % MCV 86.5 (80.0-100.0) fL MCH 28.1 (25.0-35.0) pg MCHC 32.4 (31.0-37.0) g/dL RDW 17.2 H (11.5-15.5) % Plt Count 373 (150-450) k/uL MPV 7.5 Neutrophils % 72 % Lymphocytes % 16 % Monocytes % 5 % Eosinophils % 4 % Basophils % 1 % Neutrophils # 5.2 (1.3-7.7) k/uL Lymphocytes # 1.1 (1.0-4.8) k/uL Monocytes # 0.4 (0-1.0) k/uL Eosinophils # 0.3 (0-0.7) k/uL Basophils # 0.1 (0-0.2) k/uL Anisocytosis Slight PT 11.0 (10.0-12.5) sec INR 1.0 (<1.2) APTT 22.4 (22.0-30.0) sec Sodium 136 L (137-145) mmol/L Potassium 3.9 (3.5-5.1) mmol/L Chloride 104 (98-107) mmol/L Carbon Dioxide 23 (22-30) mmol/L Anion Gap 9 mmol/L BUN 62 H (7-17) mg/dL Creatinine 3.30 H (0.52-1.04) mg/dL Est GFR (CKD-EPI)AfAm 14 (>60 ml/min/1.73 sqM) Est GFR (CKD-EPI)NonAf 12 (>60 ml/min/1.73 sqM) Glucose 91 (74-99) mg/dL Plasma Lactic Acid Ben (0.7-2.0) mmol/L Calcium 8.9 (8.4-10.2) mg/dL Magnesium 2.1 (1.6-2.3) mg/dL Total Bilirubin 0.4 (0.2-1.3) mg/dL AST 17 (14-36) U/L ALT 13 (4-34) U/L Alkaline Phosphatase 49 (38-126) U/L Troponin I (0.000-0.034) ng/mL NT-Pro-B Natriuret Pep 82145 pg/mL Total Protein 5.8 L (6.3-8.2) g/dL Albumin 3.3 L (3.5-5.0) g/dL Influenza Type A (PCR) (Not Detectd) Influenza Type B (PCR) (Not Detectd) RSV (PCR) (Not Detectd) SARS-CoV-2 (PCR) (Not Detectd) 10/13/23 10/13/23 10/13/23 Range/Units 09:49 09:49 10:34 WBC (3.8-10.6) k/uL RBC (3.80-5.40) m/uL Hgb (11.4-16.0) gm/dL Hct (34.0-46.0) % MCV (80.0-100.0) fL MCH (25.0-35.0) pg MCHC (31.0-37.0) g/dL RDW (11.5-15.5) % Plt Count (150-450) k/uL MPV Neutrophils % % Lymphocytes % % Monocytes % % Eosinophils % % Basophils % % Neutrophils # (1.3-7.7) k/uL Lymphocytes # (1.0-4.8) k/uL Monocytes # (0-1.0) k/uL Eosinophils # (0-0.7) k/uL Basophils # (0-0.2) k/uL Anisocytosis PT (10.0-12.5) sec INR (<1.2) APTT (22.0-30.0) sec Sodium (137-145) mmol/L Potassium (3.5-5.1) mmol/L Chloride (98-107) mmol/L Carbon Dioxide (22-30) mmol/L Anion Gap mmol/L BUN (7-17) mg/dL Creatinine (0.52-1.04) mg/dL Est GFR (CKD-EPI)AfAm (>60 ml/min/1.73 sqM) Est GFR (CKD-EPI)NonAf (>60 ml/min/1.73 sqM) Glucose (74-99) mg/dL Plasma Lactic Acid Ben 0.8 (0.7-2.0) mmol/L Calcium (8.4-10.2) mg/dL Magnesium (1.6-2.3) mg/dL Total Bilirubin (0.2-1.3) mg/dL AST (14-36) U/L ALT (4-34) U/L Alkaline Phosphatase (38-126) U/L Troponin I 0.015 (0.000-0.034) ng/mL NT-Pro-B Natriuret Pep pg/mL Total Protein (6.3-8.2) g/dL Albumin (3.5-5.0) g/dL Influenza Type A (PCR) Not Detected (Not Detectd) Influenza Type B (PCR) Not Detected (Not Detectd) RSV (PCR) Not Detected (Not Detectd) SARS-CoV-2 (PCR) Not Detected (Not Detectd) Disposition Clinical Impression: Acute pulmonary edema, Hospice care Disposition: HOME SELF-CARE Condition: Good Instructions (If sedation given, give patient instructions): Pulmonary Edema (ED) Is patient prescribed a controlled substance at d/c from ED?: No Referrals: Teo Madrid MD [Primary Care Provider] - 1-2 days Time of Disposition: 13:46
[2023-10-13] MEDS: methylPREDNISolone SOD SUCCI 125 MG/2 ML VIAL IV STA (09:54)
[2023-10-13 10:12] LABS: Anisocytosis Slight; Basophils # (A) 0.1 k/uL (0-0.2); Basophils % (A) 1 %; Eosinophils # (A) 0.3 k/uL (0-0.7); Eosinophils % (A) 4 %; HCT 25.5 % (34.0-46.0); HGB 8.3 gm/dL (11.4-16.0); Lymphocytes # (A) 1.1 k/uL (1.0-4.8); Lymphocytes % (A) 16 %; MCH 28.1 pg (25.0-35.0); MCHC 32.4 g/dL (31.0-37.0); MCV 86.5 fL (80.0-100.0); Mean Platelet Volume 7.5; Monocytes # (A) 0.4 k/uL (0-1.0); Monocytes % (A) 5 %; Neutrophils # (A) 5.2 k/uL (1.3-7.7); Neutrophils % (A) 72 %; Platelet Count 373 k/uL (150-450); RBC 2.95 m/uL (3.80-5.40); RDW 17.2 % (11.5-15.5); WBC 7.2 k/uL (3.8-10.6)
[2023-10-13 10:20] LABS: Partial Thromboplastin Time 22.4 sec (22.0-30.0)
[2023-10-13 10:22] LABS: ALT 13 U/L (4-34); AST 17 U/L (14-36); African American GFR (CKD) 14 (>60 ml/min/1.73 sqM); Albumin 3.3 g/dL (3.5-5.0); Alkaline Phosphatase 49 U/L (38-126); Anion Gap 9 mmol/L; Blood Urea Nitrogen 62 mg/dL (7-17); Calcium 8.9 mg/dL (8.4-10.2); Carbon Dioxide 23 mmol/L (22-30); Chloride 104 mmol/L (98-107); Glucose 91 mg/dL (74-99); Magnesium 2.1 mg/dL (1.6-2.3); Non-African American GFR(CKD) 12 (>60 ml/min/1.73 sqM); Potassium 3.9 mmol/L (3.5-5.1); Sodium 136 mmol/L (137-145); Total Bilirubin 0.4 mg/dL (0.2-1.3); Total Protein 5.8 g/dL (6.3-8.2)
[2023-10-13] MEDS: ALBUTEROL NEBULIZED 2.5 MG/3 ML INHALATION STA (10:23)
[2023-10-13] MEDS: IPRATROPIUM 0.5 MG/2.5 ML NEBU INHALATION STA (10:23)
[2023-10-13 10:30] LABS: NT-Pro-B-Type Natriuretic Pept 26600 pg/mL
[2023-10-13] MEDS: NITROGLYCERIN OINT 1 INCH/GM PACKET TOPICAL STA (10:35)
[2023-10-13] MEDS: FUROSEMIDE 10 MG/ML 4 ML VIAL IV STA (10:35)
[2023-10-13 10:50] VITALS: RESP 18
--- NOTE | 2023-10-13 11:24 | XR ---
EXAMINATION TYPE: XR chest 2V DATE OF EXAM: 10/13/2023 COMPARISON: 09/29/2023 TECHNIQUE: PA and lateral views submitted. 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 Underlying COPD with stable left lo wer lobe consolidation and small effusion. Diffuse osteopenia and arthropathy of the shoulders. IMPRESSION: 1. Diffuse emphysematous changes with stable left lower lobe consolidation and small effusion. Correl ate for mild venous congestion. 2. Ectasia or aneurysmal dilation thoracic aorta.
[2023-10-13 14:22] VITALS: BP 159/80; PULSE 84; TEMP 97.4
== END 2023-10-13 15:20 | disposition home or self-care (01) ==
LOC: EC 09:28
DX: Z51.5 Encounter for palliative care (principal); J81.0 Acute pulmonary edema; Z87.891 Personal history of nicotine dependence
CPT/HCPCS: 36415; 94640; 93005; 83880; 80053; 83605; 83735; 84484; 85025; 85610; 85730; 87636; 71046; 99285; 96374; J1940

== ENCOUNTER 2023-10-18 21:33 | Emergency (ER) | payer MEDICARE, BC ==
[2023-10-18 21:54] VITALS: TEMP 98.2
[2023-10-18] MEDS: SODIUM CHLORIDE 0.9% 1,000 ML IV STA (21:57)
--- NOTE | 2023-10-18 22:09 | ED ---
SOB HPI - General Chief Complaint: Shortness of Breath Stated Complaint: ROSI Time Seen by Provider: 10/18/23 21:35 Source: patient, EMS, RN notes reviewed, old records reviewed Mode of arrival: EMS Limitations: no limitations - History of Present Illness Initial Comments: This is a 87-year-old female to the ER for evaluation today. Presents today for evaluation of dyspnea. Patient is a hospice patient states she could not catch her breath tonight and became severely anxious but feels improved on arrival to the ER. MD Complaint: shortness of breath, cough, "asthma attack", anxiety -: hour(s) Severity: moderate Severity scale (1-10): 6 Consistency: constant, now resolved Improves With: bronchodilators Worsens With: exertion Known History Of: COPD, asthma Context: recent URI, anxiety Associated Symptoms: denies other symptoms Treatments Prior to Arrival: none - Related Data Home Medications Medication Instructions Recorded Confirmed Albuterol Sulfate [Albuterol 2 puff PO RT-Q4H PRN 06/23/23 10/13/23 Sulfate Hfa] Cyanocobalamin (Vitamin B-12) 1,000 mcg PO DAILY 09/27/23 10/13/23 [Vitamin B-12] Yolanda-Tussin Dm 10 ml PO Q6H PRN 09/27/23 10/13/23 Magnesium Hydroxide [Milk of 2,400 mg PO DAILY PRN 09/27/23 10/13/23 Magnesia] Megestrol [Megace] 400 mg PO DAILY 09/27/23 10/13/23 Multivit-Min/Iron/Folic/Lutein 1 tab PO DAILY 09/27/23 10/13/23 [Centrum Silver Women Tablet] Sennosides-Docusate Sodium 1 tab PO BID PRN 09/27/23 10/13/23 [Senokot-S] Epoetin Duncan [Procrit] 1 unit SQ MO 10/13/23 10/13/23 Fluticasone/Vilanterol [Breo 1 puff INHALATION AC-BID 10/13/23 10/13/23 Ellipta 100-25 Mcg Inhalr] Ipratropium-Albuterol Nebulize 3 ml INHALATION RT-Q6H PRN 10/13/23 10/13/23 [Duoneb 0.5 mg-3 mg/3 ml Soln] Ipratropium-Albuterol Nebulize 3 ml INHALATION RT-QID 10/13/23 10/13/23 [Duoneb 0.5 mg-3 mg/3 ml Soln] Na Phos,M-B/Na Phos,Di-Ba [Fleet 133 ml RECTAL DAILY PRN 10/13/23 10/13/23 Adult] Previous Rx's Medication Instructions Recorded Acetaminophen Tab [Tylenol] 650 mg PO Q6HR PRN tab 06/29/23 Folic Acid 1 mg PO DAILY #30 tab 06/29/23 amLODIPine [Norvasc] 5 mg PO DAILY tab 06/29/23 carvediloL [Coreg*] 12.5 mg PO BID-W/MEALS tab 06/29/23 Pantoprazole [Protonix] 40 mg PO AC-BRKFST #30 tab 10/02/23 Sodium Bicarbonate Tab 650 mg PO TID #90 tab 10/02/23 Torsemide [Demadex] 20 mg PO BID #60 tab 10/02/23 hydrALAZINE HCL [Apresoline] 75 mg PO TID #90 tab 10/02/23 Allergies Allergy/AdvReac Type Severity Reaction Status Date / Time No Known Allergies Allergy Verified 10/13/23 10:15 Review of Systems ROS Statement: Those systems with pertinent positive or pertinent negative responses have been documented in the HPI. ROS Other: All systems not noted in ROS Statement are negative. Past Medical History Past Medical History: Hypertension Additional Past Medical History / Comment(s): kidney failure History of Any Multi-Drug Resistant Organisms: None Reported Past Surgical History: Joint Replacement Additional Past Surgical History / Comment(s): knees replaced Past Psychological History: No Psychological Hx Reported Smoking Status: Former smoker Past Alcohol Use History: Occasional Past Drug Use History: None Reported General Exam Limitations: no limitations General appearance: alert, in no apparent distress Head exam: Present: atraumatic, normocephalic, normal inspection Eye exam: Present: normal appearance, PERRL, EOMI. Absent: scleral icterus, conjunctival injection, periorbital swelling ENT exam: Present: normal exam, mucous membranes moist Neck exam: Present: normal inspection. Absent: tenderness, meningismus, lymphadenopathy Respiratory exam: Present: wheezes. Absent: respiratory distress, rales, rhonchi, stridor Cardiovascular Exam: Present: regular rate, normal rhythm, normal heart sounds. Absent: systolic murmur, diastolic murmur, rubs, gallop, clicks GI/Abdominal exam: Present: soft, normal bowel sounds. Absent: distended, tenderness, guarding, rebound, rigid Extremities exam: Present: normal inspection, full ROM, normal capillary refill. Absent: tenderness, pedal edema, joint swelling, calf tenderness Back exam: Present: normal inspection Neurological exam: Present: alert, oriented X3, CN II-XII intact Psychiatric exam: Present: normal affect, normal mood Skin exam: Present: warm, dry, intact, normal color. Absent: rash Course Vital Signs 10/18/23 10/18/23 10/18/23 21:35 21:41 22:13 Temperature 98.2 F Pulse Rate 76 70 Respiratory 22 22 Rate Blood Pressure 180/85 O2 Sat by Pulse 95 Oximetry 10/18/23 10/18/23 10/18/23 22:21 23:08 23:31 Temperature Pulse Rate 73 74 71 Respiratory 16 Rate Blood Pressure 185/90 O2 Sat by Pulse 95 Oximetry 10/18/23 23:45 Temperature Pulse Rate 72 Respiratory Rate Blood Pressure O2 Sat by Pulse Oximetry - Reevaluation(s) Reevaluation #1: 10/19/23 01:14 Medical records reviewed Reevaluation #2: 10/19/23 01:14 Patient's symptoms improved Reevaluation #3: 10/19/23 01:14 Patient informed of results questions answered Reevaluation #4: Was pt. sent in by a medical professional or institution (, PA, SWITCH[employer]ARD WIRE WORKER HELPER, urgent care, hospital, or residential...) When possible be specific @ -no Did you speak to anyone other than the patient for history (EMS, parent, family, police, friend...)? What history was obtained from this source @ -no Did you review nursing and triage notes (agree or disagree)? Why? @ -agree Are old charts reviewed (outside hosp., previous admission, EMS record, old EKG, old radiological studies, urgent care reports/EKG's, residential records)? Report findings @ -yes Differential Diagnosis (chest pain, altered mental status, abdominal pain women, abdominal pain men, vaginal bleeding, weakness, fever, dyspnea, syncope, headache, dizziness, GI bleed, back pain, seizure, CVA, palpatations, mental health, musculoskeletal)? @ -prior EKG interpreted by me (3pts min.). @ -yes X-rays interpreted by me (1pt min.). @ -yes negative for acute disease CT interpreted by me (1pt min.). @ -no U/S interpreted by me (1pt. min.). @ -no What testing was considered but not performed or refused? (CT, X-rays, U/S, labs)? Why? @ -none What meds were considered but not given or refused? Why? @ -none Did you discuss the management of the patient with other professionals (professionals i.e. , PA, SWITCHBOARD WIRE WORKER HELPER, lab, RT, psych nurse, social service coordinator, admissions coordinator, teacher, booking officer, case management social worker)? Give summary @ -no Was smoking cessation discussed for >3mins.? @ -no Was critical care preformed (if so, how long)? @ -no Were there social determinants of health that impacted care today? How? (Homelessness, low income, unemployed, alcoholism, drug addiction, transportation, low edu. Level, literacy, decrease access to med. care, residential, rehab)? @ -none Was there de-escalation of care discussed even if they declined (Discuss DNR or withdrawal of care, Hospice)? DNR status @ -no What co-morbidities impacted this encounter? (DM, HTN, Smoking, COPD, CAD, Cancer, CVA, ARF, Chemo, Hep., AIDS, mental health diagnosis, sleep apnea, morbid obesity)? @ -none Was patient admitted / discharged? Hospital course, mention meds given and route, prescriptions, significant lab abnormalities, going to OR and other pertinent info. @ - 87 female to the ER for evaluation of shortness of breath and dyspnea. Symptoms improved here in the ER patient feels well and can be discharged home Discharge Undiagnosed new problem with uncertain prognosis? @ -no Drug Therapy requiring intensive monitoring for toxicity (Heparin, Nitro, Insulin, Cardizem)? @ -no Were any procedures done? @ -no Diagnosis/symptom? @ -Dyspnea Acute, or Chronic, or Acute on Chronic? @ -Acute Uncomplicated (without systemic symptoms) or Complicated (systemic symptoms)? @ -Complicated Side effects of treatment? @ -no Exacerbation, Progression, or Severe Exacerbation? @ -exacerbation Poses a threat to life or bodily function? How? (Chest pain, USA, SD, pneumonia, PE, COPD, DKA, ARF, appy, cholecystitis, CVA, Diverticulitis, Homicidal, Suicidal, threat to staff... and all critical care pts) @ -yes with extremes of age Reevaluation #5: Differential Dyspnea: Coronary syndrome, arrhythmia, tamponade, asthma, COPD, pulmonary embolism, pneumonia, pneumothorax, pulmonary effusion, anaphylaxis, diabetic ketoacidosis, flailed chest, pulmonary contusion, diaphragmatic rupture, anemia, neuromuscular, this is not meant to be an all-inclusive list. Medical Decision Making - Medical Decision Making 87 female to the ER for evaluation of shortness of breath and dyspnea. Symptoms improved here in the ER patient feels well and can be discharged home - Lab Data Result diagrams: 10/18/23 21:58 10/18/23 21:58 Lab Results 10/18/23 10/18/23 10/18/23 Range/Units 21:58 21:58 21:58 WBC 4.7 (3.8-10.6) k/uL RBC 3.18 L (3.80-5.40) m/uL Hgb 9.0 L (11.4-16.0) gm/dL Hct 28.6 L (34.0-46.0) % MCV 90.0 (80.0-100.0) fL MCH 28.3 (25.0-35.0) pg MCHC 31.5 (31.0-37.0) g/dL RDW 18.0 H (11.5-15.5) % Plt Count 345 (150-450) k/uL MPV 8.0 Neutrophils % 69 % Lymphocytes % 16 % Monocytes % 8 % Eosinophils % 3 % Basophils % 1 % Neutrophils # 3.3 (1.3-7.7) k/uL Lymphocytes # 0.8 L (1.0-4.8) k/uL Monocytes # 0.4 (0-1.0) k/uL Eosinophils # 0.2 (0-0.7) k/uL Basophils # 0.0 (0-0.2) k/uL Anisocytosis Slight PT 11.0 (10.0-12.5) sec INR 1.0 (<1.2) APTT 24.8 (22.0-30.0) sec Sodium 138 (137-145) mmol/L Potassium 3.8 (3.5-5.1) mmol/L Chloride 103 (98-107) mmol/L Carbon Dioxide 26 (22-30) mmol/L Anion Gap 9 mmol/L BUN 62 H (7-17) mg/dL Creatinine 3.43 H (0.52-1.04) mg/dL Est GFR (CKD-EPI)AfAm 13 (>60 ml/min/1.73 sqM) Est GFR (CKD-EPI)NonAf 11 (>60 ml/min/1.73 sqM) Glucose 110 H (74-99) mg/dL Plasma Lactic Acid Ben (0.7-2.0) mmol/L Calcium 8.7 (8.4-10.2) mg/dL Magnesium 2.1 (1.6-2.3) mg/dL Total Bilirubin 0.4 (0.2-1.3) mg/dL AST 19 (14-36) U/L ALT 14 (4-34) U/L Alkaline Phosphatase 54 (38-126) U/L Troponin I (0.000-0.034) ng/mL NT-Pro-B Natriuret Pep 85674 pg/mL Total Protein 6.2 L (6.3-8.2) g/dL Albumin 3.6 (3.5-5.0) g/dL 10/18/23 10/18/23 Range/Units 21:58 21:58 WBC (3.8-10.6) k/uL RBC (3.80-5.40) m/uL Hgb (11.4-16.0) gm/dL Hct (34.0-46.0) % MCV (80.0-100.0) fL MCH (25.0-35.0) pg MCHC (31.0-37.0) g/dL RDW (11.5-15.5) % Plt Count (150-450) k/uL MPV Neutrophils % % Lymphocytes % % Monocytes % % Eosinophils % % Basophils % % Neutrophils # (1.3-7.7) k/uL Lymphocytes # (1.0-4.8) k/uL Monocytes # (0-1.0) k/uL Eosinophils # (0-0.7) k/uL Basophils # (0-0.2) k/uL Anisocytosis PT (10.0-12.5) sec INR (<1.2) APTT (22.0-30.0) sec Sodium (137-145) mmol/L Potassium (3.5-5.1) mmol/L Chloride (98-107) mmol/L Carbon Dioxide (22-30) mmol/L Anion Gap mmol/L BUN (7-17) mg/dL Creatinine (0.52-1.04) mg/dL Est GFR (CKD-EPI)AfAm (>60 ml/min/1.73 sqM) Est GFR (CKD-EPI)NonAf (>60 ml/min/1.73 sqM) Glucose (74-99) mg/dL Plasma Lactic Acid Ben 0.8 (0.7-2.0) mmol/L Calcium (8.4-10.2) mg/dL Magnesium (1.6-2.3) mg/dL Total Bilirubin (0.2-1.3) mg/dL AST (14-36) U/L ALT (4-34) U/L Alkaline Phosphatase (38-126) U/L Troponin I 0.017 (0.000-0.034) ng/mL NT-Pro-B Natriuret Pep pg/mL Total Protein (6.3-8.2) g/dL Albumin (3.5-5.0) g/dL - EKG Data -: EKG Interpreted by Me (EKG is sinus 70 CT 178 QRS 138 QTc 473) - Radiology Data Radiology results: report reviewed (Chest x-rays small effusion), image reviewed Disposition Clinical Impression: Dyspnea, COPD (chronic obstructive pulmonary disease), Weakness Disposition: HOME SELF-CARE Condition: Fair Instructions (If sedation given, give patient instructions): Bronchospasm (ED) Is patient prescribed a controlled substance at d/c from ED?: No Referrals: Teo Madrid MD [Primary Care Provider] - 1-2 days Time of Disposition: 22:35
[2023-10-18] MEDS: IPRATROPIUM-ALBUTEROL 3 ML NEB INHALATION STA ×2 (22:11→23:30)
[2023-10-18 22:12] LABS: Anisocytosis Slight; Basophils % (A) 1 %; Eosinophils # (A) 0.2 k/uL (0-0.7); Eosinophils % (A) 3 %; HCT 28.6 % (34.0-46.0); Lymphocytes # (A) 0.8 k/uL (1.0-4.8); Lymphocytes % (A) 16 %; MCH 28.3 pg (25.0-35.0); MCHC 31.5 g/dL (31.0-37.0); Monocytes # (A) 0.4 k/uL (0-1.0); Monocytes % (A) 8 %; Neutrophils # (A) 3.3 k/uL (1.3-7.7); Neutrophils % (A) 69 %; Platelet Count 345 k/uL (150-450); RBC 3.18 m/uL (3.80-5.40); WBC 4.7 k/uL (3.8-10.6)
[2023-10-18 22:17] LABS: Partial Thromboplastin Time 24.8 sec (22.0-30.0)
[2023-10-18 22:20] LABS: ALT 14 U/L (4-34); AST 19 U/L (14-36); African American GFR (CKD) 13 (>60 ml/min/1.73 sqM); Albumin 3.6 g/dL (3.5-5.0); Alkaline Phosphatase 54 U/L (38-126); Anion Gap 9 mmol/L; Blood Urea Nitrogen 62 mg/dL (7-17); Calcium 8.7 mg/dL (8.4-10.2); Carbon Dioxide 26 mmol/L (22-30); Chloride 103 mmol/L (98-107); Glucose 110 mg/dL (74-99); Magnesium 2.1 mg/dL (1.6-2.3); Non-African American GFR(CKD) 11 (>60 ml/min/1.73 sqM); Potassium 3.8 mmol/L (3.5-5.1); Sodium 138 mmol/L (137-145); Total Bilirubin 0.4 mg/dL (0.2-1.3); Total Protein 6.2 g/dL (6.3-8.2)
[2023-10-18 22:27] LABS: NT-Pro-B-Type Natriuretic Pept 30000 pg/mL
--- NOTE | 2023-10-18 22:29 | XR ---
EXAM: XR Chest, 1 View CLINICAL HISTORY: ITS.REASON XR Reason: sob` TECHNIQUE: Frontal view of the chest. COMPARISON: 10/13/2023 FINDINGS: Lungs: Unremarkable. No consolidation. Pleural space: Small left pleural effusion. Heart: Unremarkable. No cardiomegaly. Mediastinum: Unremarkable. Normal mediastinal contour. Bones/joints: No acute osseous abnormalities. IMPRESSION: Small left pleural effusion.
[2023-10-18] MEDS: DEXAMETHASONE SOD PHOSPHATE 10 MG/ML 1 ML VIAL IVP STA (23:07)
[2023-10-18 23:14] VITALS: BP 185/90; RESP 16
[2023-10-18 23:51] VITALS: PULSE 72
== END 2023-10-19 01:19 | disposition home or self-care (01) ==
LOC: EC 21:33
DX: J44.89 Other specified chronic obstructive pulmonary disease (principal); I44.7 Left bundle-branch block, unspecified; R53.1 Weakness; Z87.891 Personal history of nicotine dependence
CPT/HCPCS: 36415; 94640 ×2; 93005; 83880; 80053; 83605; 83735; 84484; 85025; 85610; 85730; 71045; 99285; 96374; 96361 ×3; J1100